=== PATIENT | female | born 1950 | race Caucasian/White ===

== ENCOUNTER 2016-06-18 17:01 | Inpatient (IN) | payer OTHER, BC ==
[~2016-06-18] VITALS: Ht 152.4 cm; Wt 144.9 kg
[~2016-06-18 17:01] MED LIST: B-CO1TAB29 PO; CETI10TA84 PO; DILT-115 PO; GLUCTAB7 PO; GLYB5TAB8 PO; LOSA1TAB38 PO; METF500T5 PO; OMEG12006 PO; OXYC-106 PO; POTA-335 PO; SPIR25TA PO; SYN112 PO; juice plus PO
[2016-06-18] MEDS ORDERED: SODIUM CHLORIDE 0.9% 1000ML 1,000 ML IV ONE (17:41)
[2016-06-18] MEDS ORDERED: PIPERACILLIN/TAZOBACTAM 4.5 GM/100ML D5W IV STA (17:41)
[2016-06-18] MEDS ORDERED: SODIUM CHLORIDE 0.9% 1000ML 1,000 ML IV STA (17:41)
[2016-06-18] MEDS ORDERED: ONDANSETRON INJ 2 MG/ML 2 ML VIAL IV STA (17:41)
[2016-06-18] MEDS ORDERED: MoRPHine SULFATE 4 MG/ML 1 ML CARP\\VIAL IV STA (17:41)
[2016-06-18] MEDS ORDERED: OPTIRAY 320 IV PRN (18:00)
--- NOTE | 2016-06-18 18:07 | EMERGENCY ROOM VISIT NOTE ---
History Report prepared by Wil: Ritika Najera Under the Supervision of: Dr. Ivan Huerta M.D. First contact with patient: 17:29 Chief Complaint: VOMITING Stated Complaint: VOMITING x7 DAY, PAIN IN STOMACH, POSSIBLE HERNIA Nursing Triage Summary: Pt daughter states patient has had 7 days of vomiting, denies diarrhea, states today when she vomited she heard a pop and there appears to be an open area that is draining in pt abdomen around umbilicus. Hx diabetes. Pain increases with movement 10/10 History of Present Illness The patient is a 65 year old female who presents to the Emergency Room with complaints of persistent abdominal drainage starting about 9 hours ago. The patient has been having a cough and vomiting for the past few days. She has been having intermittent acid reflux. Her last normal bowel movement was yesterday. She denies headache, shortness of breath, urinary symptoms, diarrhea , or any other complaints. She also reports abdominal pain. This morning, she heard a pop from her abdomen after she had a vomiting episode and a coughing spell. A few minutes later, she started having draining from the umbilicus. As per family member, the drainage smells similar to stool. She has no prior history of hernia near the drainage site. She denies any history of abdominal surgeries or bowel problems. She has a family history of colon cancer. Source of History: patient, family Onset: about 9 hours ago Position: abdomen Quality: other (drainage) Timing: other (persistent) Associated Symptoms: + abdominal pain, + cough, + vomiting, No SOB, No diarrhea, No headache, No urinary symptoms Review of Systems See HPI for pertinent positives & negatives. A total of 10 systems reviewed and were otherwise negative. Past Medical & Surgical Medical Problems: (1) Back pain (2) Benign hypertension (3) DDD (degenerative disc disease) (4) Diabetes mellitus (5) hernia (6) Hypothyroidism (7) Neurogenic claudication due to lumbar spinal stenosis (8) Perforated viscus Old medical records were reviewed. Nurse's notes were reviewed and I agree with. Diabetes and high blood pressure Denies cardiac disease No abdominal surgeries Family History Diabetes mellitus FHx: cancer FHx: gallbladder disease Social History Smoking Status: Never Smoker Alcohol Use: none Marital Status: Housing Status: lives with significant other Occupation Status: retired Current/Historical Medications Scheduled B-Complex Vitamins (Vitamin B Complex), 1 TAB PO DAILY Diltiazem Hcl Extended Release (Diltiazem Hcl), 240 MG PO QAM Rfdlbqyjtfl-Lzslyqffyla-Tpv C- (Glucosamine Chondroitin), 1 TAB PO BID Glyburide (Diabeta), 5 MG PO BID Levothyroxine Sodium (Synthroid), 112 MCG PO DAILY Losartan Potassium (Cozaar), 100 MG PO QPM Metformin Hcl Er (Glucophage Er), 1,000 MG PO QAM Metformin Hcl Er (Glucophage Er), 500 MG PO QPM Cecil-3 Fatty Acids (Cecil 3), 1 CAP PO DAILY [Juice Plus Fruit], 2 CAP PO QPM [Juice Plus Vegi], 2 CAP PO QAM Scheduled PRN Cetirizine (Zyrtec), 10 MG PO DAILY PRN for Allergy Symptoms Allergies Coded Allergies: No Known Allergies (Unverified , 06/18/16) Physical Exam Vital Signs Date Time Temp Pulse Resp B/P Pulse Ox O2 Delivery O2 Flow Rate FiO2 06/18/16 22:30 90 20 174/94 97 Mask 10 06/18/16 22:20 112 20 173/113 95 Mask 10 06/18/16 22:19 36.2 130 18 190/108 91 Mask 10 06/18/16 19:29 37.5 78 20 112/68 94 06/18/16 19:28 78 20 112/68 94 Room Air 06/18/16 17:21 37.5 80 20 117/63 94 Room Air Physical Exam General: Non-ill appearing, older female, in no acute distress. HEENT: Normal cephalic atraumatic. Pupils are equal round and reactive to light. Extraocular movements are intact. Oropharynx is pink with moist mucous membranes. No swelling of the mouth lips or tongue. Neck: Supple with a midline trachea. No meningeal signs or stiffness, no JVD or bruits. No Stridor. Chest: Clear to auscultation bilaterally. No wheezes or rhonchi. No increased work of breathing. Heart: regular rate and rhythm. Abdomen: Moderately tender centrally no redness. She significant drainage that looks like stool in her umbilicus. She has an umbilical hernia below this that is tender Extremities: No cyanosis clubbing or edema. No calf tenderness or assymetry Spine/Back. Non tender to palpation. No CVA tenderness Skin: Good turgor without rashes. Neurologic exam: Cranial nerves two through 12 are intact. Motor and sensation are intact and symmetrical throughout. Medical Decision & Procedures ER Provider Diagnostic Interpretation: X ray results as stated below per my interpretation and radiologist interpretation. CT results as stated below per my review and radiologist interpretation: ABDOMEN AND PELVIS CT WITH IV CONTRAST CT DOSE: 1797.10 mGy.cm HISTORY: Pain eval for obstruction TECHNIQUE: Multiaxial CT images of the abdomen and pelvis were performed following the use of intravenous contrast. COMPARISON STUDY: None. FINDINGS: Lung bases are clear. Fatty infiltration of liver. Contracted gallbladder contains several gallstones. 3 cm right renal cyst. No evidence renal hydronephrosis. Graft distended fluid-filled small bowel distention relates to a periumbilical hernia containing a short segment loop of nondistended small bowel. There are also several air pockets within the hernia itself. This may indicate a bowel incarceration. A clavicle pneumatosis of the small bowel is present. There is no evidence for free air: Pattern is decompressed. IMPRESSION: 1. Findings consistent with small bowel obstruction 2. The obstruction relates to a periumbilical hernia containing a short segment loop of a decompressed/incarcerated small bowel 3. Several small air bubbles within the hernia itself with possible minimal pneumatosis 4. Gallstones within a contracted gallbladder. 5. Fatty infiltration of liver. Electronically signed by: Amarjit Cardoza M.D. 06/18/2016 6:45 PM CHEST ONE VIEW PORTABLE CLINICAL HISTORY: CHEST PAIN dyspnea COMPARISON STUDY: No previous studies for comparison. FINDINGS: Mild congestive failure. Mild cardiac enlargement. Suboptimal history volumes. IMPRESSION: Mild congestive heart failure Electronically signed by: Amarjit Cardoza M.D. 06/18/2016 6:12 PM Laboratory Results 06/18/16 17:57 Red Blood Count 4.63, Mean Corpuscular Volume 86.0, Mean Corpuscular Hemoglobin 30.5, Mean Corpuscular Hemoglobin Concent 35.4, Mean Platelet Volume 10.6, Neutrophils (%) (Auto) 85.0, Lymphocytes (%) (Auto) 8.9, Monocytes (%) (Auto) 5.4, Eosinophils (%) (Auto) 0.0, Basophils (%) (Auto) 0.1, Neutrophils # (Auto) 25.46, Lymphocytes # (Auto) 2.67, Monocytes # (Auto) 1.62, Eosinophils # (Auto) 0.01, Basophils # (Auto) 0.03 06/18/16 17:57 Test 06/18/16 17:57 06/18/16 18:10 06/18/16 19:40 White Blood Count 29.96 K/uL (4.8-10.8) Red Blood Count 4.63 M/uL (4.2-5.4) Hemoglobin 14.1 g/dL (12.0-16.0) Hematocrit 39.8 % (37-47) Mean Corpuscular Volume 86.0 fL (80-100) Mean Corpuscular Hemoglobin 30.5 pg (25-34) Mean Corpuscular Hemoglobin Concent 35.4 g/dl (32-36) Platelet Count 289 K/uL (130-400) Mean Platelet Volume 10.6 fL (7.4-10.4) Neutrophils (%) (Auto) 85.0 % Lymphocytes (%) (Auto) 8.9 % Monocytes (%) (Auto) 5.4 % Eosinophils (%) (Auto) 0.0 % Basophils (%) (Auto) 0.1 % Neutrophils # (Auto) 25.46 K/uL (1.4-6.5) Lymphocytes # (Auto) 2.67 K/uL (1.2-3.4) Monocytes # (Auto) 1.62 K/uL (0.11-0.59) Eosinophils # (Auto) 0.01 K/uL (0-0.5) Basophils # (Auto) 0.03 K/uL (0-0.2) RDW Standard Deviation 40.1 fL (36.4-46.3) RDW Coefficient of Variation 12.8 % (11.5-14.5) Immature Granulocyte % (Auto) 0.6 % Immature Granulocyte # (Auto) 0.17 K/uL (0.00-0.02) Estimated GFR () 61.0 Estimated GFR (Non- 52.6 BUN/Creatinine Ratio 25.1 (10-20) Calcium Level 8.2 mg/dl (8.5-10.1) Total Bilirubin 1.0 mg/dl (0.2-1) Direct Bilirubin 0.3 mg/dl (0-0.2) Aspartate Amino Transf (AST/SGOT) 12 U/L (15-37) Alanine Aminotransferase (ALT/SGPT) 27 U/L (12-78) Alkaline Phosphatase 87 U/L (45-117) Total Protein 7.9 gm/dl (6.4-8.2) Albumin 3.2 gm/dl (3.4-5.0) Lipase 265 U/L (73-393) Bedside Hemoglobin 14.3 g/dl (12.0-16.0) Bedside Hematocrit 42 % (37-47) Bedside Sodium 132 mEq/L (135-144) Bedside Potassium 3.3 mEq/L (3.3-5.0) Bedside Chloride 89 mEq/L (101-112) Bedside Total CO2 27 mEq/l (24-31) Anion Gap 20.0 mmol/L (16-25) Bedside Blood Urea Nitrogen 29 mg/dl (7-18) Bedside Creatinine 1.0 mg/dl (0.6-1.3) Bedside Glucose (other) 274 mg/dl (70-99) Bedside Ionized Calcium (Tomasz) 0.96 mmol/l (1.12-1.32) Lactic Acid Level 1.6 mmol/L (0.4-2.0) Troponin I < 0.015 ng/ml (0-0.045) Laboratory studies as stated above per my review. Medications Administered Medications (Trade) Dose Ordered Sig/Devang Route Start Time Stop Time Status Last Admin Dose Admin Sodium Chloride 1,000 ml @ 999 mls/hr Q1H1M STAT IV 06/18/16 17:41 06/18/16 18:41 DC 06/18/16 18:19 999 MLS/HR Sodium Chloride (Nss 1000ml) 1,000 ml @ 200 mls/hr Q5H ONCE IV 06/18/16 17:41 06/18/16 22:40 DC 06/18/16 18:58 200 MLS/HR Ondansetron HCl (Zofran Inj) 4 mg NOW STAT IV 06/18/16 17:41 06/18/16 17:46 DC 06/18/16 18:19 4 MG Piperacillin Sod/ Tazobactam Sod (Zosyn Iv) 4.5 gm NOW STAT IV 06/18/16 17:41 06/18/16 17:46 DC 06/18/16 18:58 4.5 GM Morphine Sulfate (MoRPHine SULFATE INJ) 2 mg STK-MED ONCE .ROUTE 06/18/16 18:15 1/4/17 18:16 DC 06/18/16 18:19 2 MG Morphine Sulfate (MoRPHine SULFATE INJ) 2 mg STK-MED ONCE .ROUTE 06/18/16 18:55 06/18/16 18:57 DC 06/18/16 19:24 2 MG Morphine Sulfate (MoRPHine SULFATE INJ) 4 mg Q4H PRN IV 06/18/16 19:30 07/02/16 19:29 06/19/16 01:01 4 MG Bupivacaine HCl (Marcaine 0.5% MPF Inj) 30 ml ONE ONCE INJ 06/18/16 21:40 06/18/16 21:41 DC 06/18/16 21:40 30 ML ECG Indication: abdominal pain Rate (beats per minute): 108 Rhythm: sinus tachycardia Findings: Q waves (Inferior), no acute ischemic change, other (Septal infarct) Comparison ECG Date: January 30, 2015 Change: no significant change Change: Repeat EKG showed sinus tachycardia, 104 beats per minute, no change when compared to the first EKG. Repeat EKG showed sinus tachycardia, 103 beats per minute, septal infarct, inferior Q waves, no change when compared to the second EKG. ED Course 1728: Past medical records reviewed. The patient was evaluated in room B02, and a complete history and physical examination were performed. 1741: Zosyn IV 4.5 gm IV, Morphine Sulfate 2 mg IV, Zofran Inj 4 mg IV, Sodium Chloride 1000 ml @ 200 mls/hr IV, Sodium Chloride 1000 ml @ 999 mls/hr IV 1754: I discussed the patient's case with Dr. Veronica, general surgeon with [facility]. 1815: Morphine Sulfate [address] Veronica is at bedside. 1827: The patient is in CT scan. 1853: Upon reevaluation, the patient is resting comfortably. I discussed the results and treatment plan with the patient. She verbalized agreement of the treatment plan. [facility] The patient will be evaluated for further management. 1900: The patient is awaiting to go to the operating room. Medical Decision Differential diagnosis includes but is not limited to dehydration, hernia, bowel obstruction, fistula, sepsis. This patient comes in as described above. she's had vomiting for several days and her episode this morning where she felt a pop in her abdomen and since and has had drainage from her umbilicus and increasing abdominal pain. She does have a low-grade temperature however is but normotensive. Clinically, I do think she is dehydrated. My biggest concern however is on exam she is very tender along her umbilicus has a hernia and has stool draining out of her umbilicus. I'm concerned that she has incarcerated hernia that is draining stool. We moved quickly to treat and hydrate her. I did order Zosyn 4.5 g IV and order multiple blood testing including a CAT scan with IV contrast. I did also promptly consulted Dr. Veronica, the surgeon on-call, and she promptly arrived while we were still doing the workup in the ER. The workup does confirm the diagnosis of bowel obstruction secondary to an umbilical umbilical hernia. She has received IV hydration, IV antibiotics in the ER as well as IV morphine and IV Zofran for pain and nausea management. Dr. Veronica is going to take her emergently to the operating room. Her white count is significant elevated 28,000. Dr. Hinds also did see the patient as the medical hospitalist team will admit her for postoperative management. She was taken emergently to the operating room. Consults Time Called: 1750 Consulting Physician: Dr. Veronica, general surgeon with [facility] Returned Call: 175 I discussed the patient's case with Dr. Veronica, general surgeon with [facility]. Additional Consults: Time Called: 185 Consulted Physician: [facility] Returned Call: [phone] Additional Comments: [facility] Impression Primary Impression: Incarcerated hernia Additional Impressions: Bowel obstruction, Sepsis Critical Care Because this patient's emergent surgical condition and need to move quickly to expedite care as well as multiple consultations and IV medications and frequent reassessment and evaluation, I have personally spent greater than 30 minutes of critical care time in the direct management of this patient. This includes bedside care, interpretation of diagnostic studies, and testing, discussion with consultants, patient, and family members, and other required patient management activities. This 30 minutes is in excess of all separately billable procedures. Scribe Attestation The scribe's documentation has been prepared under my direction and personally reviewed by me in its entirety. I confirm that the note above accurately reflects all work, treatment, procedures, and medical decision making performed by me. Departure Information Dispostion Being Evaluated By Surgeon Referrals Delfin Cole M.D. (PCP) Patient Instructions A Signature Page, My [facility]
--- NOTE | 2016-06-18 18:14 | DIAGNOSTIC IMAGING REPORT ---
CHEST ONE VIEW PORTABLE CLINICAL HISTORY: CHEST PAIN dyspnea COMPARISON STUDY: No previous studies for comparison. FINDINGS: Mild congestive failure. Mild cardiac enlargement. Suboptimal history volumes. IMPRESSION: Mild congestive heart failure Electronically signed by: Amarjit Cardoza M.D. 06/18/2016 6:12 PM
[2016-06-18 18:15] LABS: HEMATOCRIT 39.8 % (37-47); MEAN CORPUSCULAR HEMOGLOBIN 30.5 pg (25-34); MEAN CORPUSCULAR HGB CONC 35.4 g/dl (32-36); MEAN PLATELET VOLUME 10.6 fL (7.4-10.4); PLATELET COUNT 289 K/uL (130-400); RED BLOOD COUNT 4.63 M/uL (4.2-5.4); WHITE BLOOD COUNT 29.96 K/uL (4.8-10.8)
[2016-06-18] MEDS ORDERED: MoRPHine SULFATE 2 MG/ML CARP ONE (18:15)
[2016-06-18 18:34] LABS: BLOOD UREA NITROGEN 28 mg/dl (7-18); BUN/CREATININE RATIO 25.1 (10-20); CALCIUM 8.2 mg/dl (8.5-10.1); CARBON DIOXIDE 29 mmol/L (21-32); CHLORIDE 92 mmol/L (98-107); POTASSIUM 3.3 mmol/L (3.5-5.1); SODIUM 132 mmol/L (136-145)
[2016-06-18 18:44] LABS: BASO % 0.1 %; BASO ABS # 0.03 K/uL (0-0.2); COMPLETE YES; IG% 0.6 %; LYMPH % 8.9 %; LYMPH ABS # 2.67 K/uL (1.2-3.4); MONO % 5.4 %
[2016-06-18 18:46] LABS: ALKALINE PHOSPHATASE 87 U/L (45-117); ALT/SGPT 27 U/L (12-78); AST/SGOT 12 U/L (15-37)
--- NOTE | 2016-06-18 18:47 | DIAGNOSTIC IMAGING REPORT ---
ABDOMEN AND PELVIS CT WITH IV CONTRAST CT DOSE: 1797.10 mGy.cm HISTORY: Pain eval for obstruction TECHNIQUE: Multiaxial CT images of the abdomen and pelvis were performed following the use of intravenous contrast. COMPARISON STUDY: None. FINDINGS: Lung bases are clear. Fatty infiltration of liver. Contracted gallbladder contains several gallstones. 3 cm right renal cyst. No evidence renal hydronephrosis. Graft distended fluid-filled small bowel distention relates to a periumbilical hernia containing a short segment loop of nondistended small bowel. There are also several air pockets within the hernia itself. This may indicate a bowel incarceration. A clavicle pneumatosis of the small bowel is present. There is no evidence for free air: Pattern is decompressed. IMPRESSION: 1. Findings consistent with small bowel obstruction 2. The obstruction relates to a periumbilical hernia containing a short segment loop of a decompressed/incarcerated small bowel 3. Several small air bubbles within the hernia itself with possible minimal pneumatosis 4. Gallstones within a contracted gallbladder. 5. Fatty infiltration of liver. Electronically signed by: Amarjit Cardoza M.D. 06/18/2016 6:45 PM
[2016-06-18 18:53] LABS: GLUCOSE 272 mg/dl (70-99)
[2016-06-18] MEDS: MoRPHine SULFATE 2 MG/ML CARP ONE ×2 (18:55→19:24)
[2016-06-18] MEDS ORDERED: FENTANYL CITRATE INJ 50 MCG/1 ML 2 ML VIAL ONE (19:12)
[2016-06-18] MEDS ORDERED: SUCCINYLCHOLINE CHLORIDE 20 MG/ML 10 ML VIAL IV ONE (19:13)
[2016-06-18] MEDS ORDERED: DILT240C75 PO (19:13)
[2016-06-18] MEDS ORDERED: PROPOFOL IV EMULSION 10 MG/ML 20 ML VIAL IV ONE (19:13)
[2016-06-18] MEDS ORDERED: ROCURONIUM BROMIDE 10 MG/ML 5 ML VIAL ONE (19:13)
[2016-06-18] MEDS ORDERED: GLY/5 PO (19:13)
[2016-06-18] MEDS ORDERED: LOSA100T65 PO (19:13)
[2016-06-18] MEDS ORDERED: LEVO112T2 PO (19:13)
[2016-06-18] MEDS ORDERED: METF500T5 PO ×2 (19:13)
[2016-06-18] MEDS ORDERED: LIDOCAINE HCL 2% 2 ML VIAL (20MG/ML) ONE (19:13)
[2016-06-18] MEDS ORDERED: B-COTAB18 PO (19:18)
[2016-06-18] MEDS ORDERED: OMEG12006 PO (19:18)
[2016-06-18] MEDS ORDERED: GLUCTAB7 PO (19:18)
[2016-06-18] MEDS ORDERED: Juice Plus Fruit PO (19:18)
[2016-06-18] MEDS ORDERED: [UNRECOGNIZED DRUG - OTHER] PO (19:18)
[2016-06-18] MEDS ORDERED: CETI10TA84 PO (19:18)
[2016-06-18] MEDS ORDERED: SODIUM CHLORIDE 0.9% 1000ML 1,000 ML IV SCH (19:20)
[2016-06-18] MEDS ORDERED: ONDANSETRON INJ 2 MG/ML 2 ML VIAL IV PRN ×2 (19:30)
[2016-06-18] MEDS ORDERED: HydrALAZINE HCL 20 MG/ML VIAL IV PRN (19:30)
[2016-06-18] MEDS ORDERED: MoRPHine SULFATE 10 MG/ML CARP/VIAL IV PRN (19:30)
[2016-06-18] MEDS ORDERED: EpHEDrine SULFATE INJ 50 MG/ML AMP IV PRN (19:30)
[2016-06-18] MEDS ORDERED: FENTANYL CITRATE INJ 50 MCG/1 ML 2 ML VIAL IV PRN (19:30)
[2016-06-18] MEDS ORDERED: ATROPINE SULFATE 0.1 MG/ML 5ML SYR IV PRN (19:30)
--- NOTE | 2016-06-18 19:45 | Pre-Operative Consultation ---
History General Date of Service: Jun 18, 2016. Stated Complaint: drainage from umbilicus HPI HPI: The patient is a 65 year old female being seen at request of Dr. Huerta for umbilical drainage that started earlier today. She has had persistent vomiting for the past 7 days. Has diabetes. No prior history of abdominal surgery. This morning, felt a pop in abdomen while vomiting. Developed severe abdominal pain and drainage of foul smelling stool from her umbilicus. No fevers/ chills. No history of hernias in past. Historian: patient Procedure Urgency: Emergency Risk Assessment Daily beta antonia use?: No Medical & Surgical History Past Medical History: diabetes, hypertension, other (obesity) Past Surgical History: other (back surgery) Family History Family History: diabetes Social History Hx Tobacco Use In Past Year?: No Smoking Status: Never Smoker Alcohol: none Marital status: Occupation status: retired Allergies Allergies: Coded Allergies: No Known Allergies (Unverified , 06/18/16) Medications Current Inpatient Medications Current Inpatient Medications Medications (Trade) Dose Ordered Sig/Devagn Route Start Time Stop Time Status Last Admin Dose Admin Sodium Chloride (Nss 1000ml) 1,000 ml @ 200 mls/hr Q5H ONCE IV 06/18/16 17:41 06/18/16 22:40 06/18/16 18:58 200 MLS/HR Ioversol 100 ml 100 ml UD PRN IV 06/18/16 18:00 06/22/16 17:59 Sodium Chloride (Nss 1000ml) 1,000 ml @ 125 mls/hr Q8H IV 06/18/16 19:20 07/18/16 19:19 UNV Ondansetron HCl (Zofran Inj) 4 mg Q6H PRN IV 06/18/16 19:30 07/18/16 19:29 UNV Insulin Aspart (novoLOG ASPART) SLIDING SCALE PARAMETER ACHS SC 06/18/16 21:00 07/18/16 20:59 UNV Morphine Sulfate (MoRPHine SULFATE INJ) 4 mg Q4H PRN IV 06/18/16 19:30 07/02/16 19:29 UNV Morphine Sulfate 2 mg 2 mg Q4H PRN IV 06/18/16 19:30 07/02/16 19:29 UNV Acetaminophen 650 mg/Empty Bag 65 ml @ 260 mls/hr Q6H PRN IV 06/18/16 19:30 07/18/16 19:29 UNV Levothyroxine Sodium/Syringe (Synthroid Inj/ Syringe) 3 ml @ 2 mls/min DAILY@09 IV 06/19/16 09:00 07/19/16 08:59 UNV Hydralazine HCl (HydrALAZINE INJ) 10 mg Q4H PRN IV 06/18/16 19:30 07/18/16 19:29 UNV Fentanyl Citrate (Fentanyl Inj) 50 mcg Q5M PRN IV 06/18/16 19:30 06/19/16 19:29 UNV Morphine Sulfate (MoRPHine SULFATE INJ) 2 mg Q5M PRN IV 06/18/16 19:30 06/19/16 19:29 UNV Ondansetron HCl (Zofran Inj) 4 mg ONE PRN IV 06/18/16 19:30 UNV Ephedrine Sulfate (EpHEDrine SULFATE INJ) 5 mg Q5M PRN IV 06/18/16 19:30 06/19/16 19:29 UNV Atropine Sulfate (Atropine Sulfate 0.1MG/Ml Inj) 0.5 mg Q1M PRN IV 06/18/16 19:30 06/19/16 19:29 UNV Review of Systems Review of Systems Gastrointestinal: see HPI All Other Symptoms All Other Systems: Reviewed and Negative Physical Exam Physical Exam General Appearance: + WD/WN, No distress Ears, Nose, Throat: + normal ENT inspection Neck: No limited range of motion, No tracheal deviation Respiratory: No abnormal breath sounds, No accessory muscle use, No decreased breath sounds, No respiratory distress Cardiovascular: No JVD, No abnormal rate, No diastolic murmur, No edema, No tachycardia Abdomen: + distension, + mass (10 cm centralized under umbilicus), + other ( drainage of stool from umbilicus), + tenderness Extremities: No abnormal range of motion, No edema Neurologic/Psychiatric: No abnormal test equipment mechanic II-XII, No motor deficit/weakness Skin Characteristics: No abnormal color, No abnormal temperature Diagnostics Labs Labs Results Past 24 Hours Test 06/18/16 17:57 06/18/16 19:05 06/18/16 19:10 Range/Units White Blood Count 29.96 4.8-10.8 K/uL Red Blood Count 4.63 4.2-5.4 M/uL Hemoglobin 14.1 12.0-16.0 g/dL Hematocrit 39.8 37-47 % Mean Corpuscular Volume 86.0 80-100 fL Mean Corpuscular Hemoglobin 30.5 25-34 pg Mean Corpuscular Hemoglobin Concent 35.4 32-36 g/dl Platelet Count 289 130-400 K/uL Mean Platelet Volume 10.6 7.4-10.4 fL Neutrophils (%) (Auto) 85.0 % Lymphocytes (%) (Auto) 8.9 % Monocytes (%) (Auto) 5.4 % Eosinophils (%) (Auto) 0.0 % Basophils (%) (Auto) 0.1 % Neutrophils # (Auto) 25.46 1.4-6.5 K/uL Lymphocytes # (Auto) 2.67 1.2-3.4 K/uL Monocytes # (Auto) 1.62 0.11-0.59 K/uL Eosinophils # (Auto) 0.01 0-0.5 K/uL Basophils # (Auto) 0.03 0-0.2 K/uL RDW Standard Deviation 40.1 36.4-46.3 fL RDW Coefficient of Variation 12.8 11.5-14.5 % Immature Granulocyte % (Auto) 0.6 % Immature Granulocyte # (Auto) 0.17 0.00-0.02 K/uL Sodium Level 132 136-145 mmol/L Potassium Level 3.3 3.5-5.1 mmol/L Chloride Level 92 98-107 mmol/L Carbon Dioxide Level 29 21-32 mmol/L Anion Gap 11.0 3-11 mmol/L Blood Urea Nitrogen 28 7-18 mg/dl Creatinine 1.10 0.60-1.20 mg/dl Estimated GFR () 61.0 Estimated GFR (Non- 52.6 BUN/Creatinine Ratio 25.1 10-20 Random Glucose 272 70-99 mg/dl Calcium Level 8.2 8.5-10.1 mg/dl Total Bilirubin 1.0 0.2-1 mg/dl Direct Bilirubin 0.3 0-0.2 mg/dl Aspartate Amino Transf (AST/SGOT) 12 15-37 U/L Alanine Aminotransferase (ALT/SGPT) 27 12-78 U/L Alkaline Phosphatase 87 45-117 U/L Troponin I < 0.015 0-0.045 ng/ml Total Protein 7.9 6.4-8.2 gm/dl Albumin 3.2 3.4-5.0 gm/dl Lipase 265 73-393 U/L Microbiology Results 06/18/16 Blood Culture, Received Pending 06/18/16 Blood Culture, Received Pending Lab Interpretation Lab Interpretation: labs were reviewed Diagnostic Radiology Diagnostic Radiology CT scan personally reviewed and shows bowel in hernia sac, likely source of perforation. Evidence of small bowel obstruction. Impression Assessment and Plan Assessment and Plan 65 yr old woman with perforated bowel in hernia sac. Discussed exploratory laparotomy, bowel resection, possible hernia repair. Discussed high likelihood of recurrent hernia given her obesity. Other risks of bleeding, infection, prolonged postop course, enterotomy discussed. Consent signed.
--- NOTE | 2016-06-18 19:53 | History and Physical ---
History & Physical Date & Time of Service: Jun 18, 2016 at 19:42 Chief Complaint: 65 year old female who presents vomiting and little oral intake and a "pop' sensation then began having abdominal drainage from her umbilicus that smelled of stool starting about 9 hours [employer]. She has a history intermittent acid reflux, has hag normal bowel movements. She has no prior history of hernia. She denies any history of abdominal surgeries or bowel problems. She has a family history of colon cancer. She is being urgently taken to the OR, no current chest pain or shortness of breath, some inferior q waves are noted on ECG, but similar to old ECG Primary Care Physician: Delfin Cole M.D. History of Present Illness Source: patient, family Past Medical/Surgical History Medical Problems: (1) Back pain Status: Resolved (2) Benign hypertension Status: Chronic (3) DDD (degenerative disc disease) Status: Chronic (4) Diabetes mellitus Status: Chronic (5) hernia Status: Resolved (6) Neurogenic claudication due to lumbar spinal stenosis Status: Resolved Family History Diabetes mellitus FHx: cancer FHx: gallbladder disease Social History Smoking Status: Never Smoker Marital Status: Occupational Status: retired Multi-Drug Resistant Organisms History of MDRO: No Allergies Coded Allergies: No Known Allergies (Unverified , 06/18/16) Home Medications Scheduled B-Complex Vitamins (Vitamin B Complex), 1 TAB PO DAILY Diltiazem Hcl Extended Release (Diltiazem Hcl), 240 MG PO QAM Nvytlciabql-Vheotbqyvtm-Iep C- (Glucosamine Chondroitin), 1 TAB PO BID Glyburide (Diabeta), 5 MG PO BID Levothyroxine Sodium (Synthroid), 112 MCG PO DAILY Losartan Potassium (Cozaar), 100 MG PO QPM Metformin Hcl Er (Glucophage Er), 1,000 MG PO QAM Metformin Hcl Er (Glucophage Er), 500 MG PO QPM [place]-3 Fatty Acids ([place] 3), 1 CAP PO DAILY [Juice Plus Fruit], 2 CAP PO QPM [Juice Plus Vegi], 2 CAP PO QAM Scheduled PRN Cetirizine (Zyrtec), 10 MG PO DAILY PRN for Allergy Symptoms Review of Systems Constitutional: No chills, No fever Respiratory: No cough, No sputum, No wheezing Cardiovascular: No chest pain, No orthopnea Abdomen: + nausea, + pain, + vomiting, No constipation, No diarrhea Musculoskeletal: No joint pain, No muscle pain Genitourinary - Female: No dysuria, No urinary frequency Psychiatric: No anhedonism, No depression symptoms Endocrine: No excessive thirst, No fatigue Hematologic / Lymphatic: No abnormal bleeding/bruising, No clotting problems Integumentary: No itch, No rash Physical Exam Vital Signs Date Time Temp Pulse Resp B/P Pulse Ox O2 Delivery O2 Flow Rate FiO2 06/18/16 19:29 37.5 78 20 112/68 94 06/18/16 19:28 78 20 112/68 94 Room Air 06/18/16 17:21 37.5 80 20 117/63 94 Room Air General Appearance: + mild distress, + obese Head: normocephalic, atraumatic Eyes: PERRL, EOMI Neck: supple, no JVD Respiratory/Chest: chest non-tender, lungs clear, normal breath sounds Cardiovascular: regular rate, rhythm, no murmur Abdomen/GI: + abnormal bowel sounds, + guarding Extremities/Musculoskelatal: normal inspection, no calf tenderness Neurologic/Psych: alert, oriented x 3 Skin: normal color, warm/dry, no rash Diagnostics Laboratory Results Results Past 24 Hours Test 06/18/16 17:57 06/18/16 19:05 06/18/16 19:10 Range/Units White Blood Count 29.96 4.8-10.8 K/uL Red Blood Count 4.63 4.2-5.4 M/uL Hemoglobin 14.1 12.0-16.0 g/dL Hematocrit 39.8 37-47 % Mean Corpuscular Volume 86.0 80-100 fL Mean Corpuscular Hemoglobin 30.5 25-34 pg Mean Corpuscular Hemoglobin Concent 35.4 32-36 g/dl Platelet Count 289 130-400 K/uL Mean Platelet Volume 10.6 7.4-10.4 fL Neutrophils (%) (Auto) 85.0 % Lymphocytes (%) (Auto) 8.9 % Monocytes (%) (Auto) 5.4 % Eosinophils (%) (Auto) 0.0 % Basophils (%) (Auto) 0.1 % Neutrophils # (Auto) 25.46 1.4-6.5 K/uL Lymphocytes # (Auto) 2.67 1.2-3.4 K/uL Monocytes # (Auto) 1.62 0.11-0.59 K/uL Eosinophils # (Auto) 0.01 0-0.5 K/uL Basophils # (Auto) 0.03 0-0.2 K/uL RDW Standard Deviation 40.1 36.4-46.3 fL RDW Coefficient of Variation 12.8 11.5-14.5 % Immature Granulocyte % (Auto) 0.6 % Immature Granulocyte # (Auto) 0.17 0.00-0.02 K/uL Sodium Level 132 136-145 mmol/L Potassium Level 3.3 3.5-5.1 mmol/L Chloride Level 92 98-107 mmol/L Carbon Dioxide Level 29 21-32 mmol/L Anion Gap 11.0 3-11 mmol/L Blood Urea Nitrogen 28 7-18 mg/dl Creatinine 1.10 0.60-1.20 mg/dl Estimated GFR () 61.0 Estimated GFR (Non- 52.6 BUN/Creatinine Ratio 25.1 10-20 Random Glucose 272 70-99 mg/dl Calcium Level 8.2 8.5-10.1 mg/dl Total Bilirubin 1.0 0.2-1 mg/dl Direct Bilirubin 0.3 0-0.2 mg/dl Aspartate Amino Transf (AST/SGOT) 12 15-37 U/L Alanine Aminotransferase (ALT/SGPT) 27 12-78 U/L Alkaline Phosphatase 87 45-117 U/L Troponin I < 0.015 0-0.045 ng/ml Total Protein 7.9 6.4-8.2 gm/dl Albumin 3.2 3.4-5.0 gm/dl Lipase 265 73-393 U/L Microbiology Results 06/18/16 Blood Culture, Received Pending 06/18/16 Blood Culture, Received Pending Diagnostic Radiology CT abdomen pelvis: 1. Findings consistent with small bowel obstruction 2. The obstruction relates to a periumbilical hernia containing a short segment loop of a decompressed/incarcerated small bowel 3. Several small air bubbles within the hernia itself with possible minimal pneumatosis 4. Gallstones within a contracted gallbladder. 5. Fatty infiltration of liver. CXR normal No change from prior EKG Impression Assessment and Plan (1) Perforated small intestine Status: Acute Assessment & Plan: Pt will be taken to the OR, is given Zosyn, cultured, ngt decision based on surgical team (2) Diabetes mellitus Status: Chronic Assessment & Plan: since the pt will be NPO will stop glucophage and glyburide , have ssi q 6 hours (3) Benign hypertension Status: Chronic Assessment & Plan: since is npo will hold diltiazem,losartan, use hydralazine and metoprolol for bp or if tachycardia (4) Hypothyroidism Status: Chronic Assessment & Plan: since cannot take po will have synthroid IV at 50% or so of dose (5) Hypokalemia Status: Acute Assessment & Plan: replete with IVF containing potassium, check magnesium in am will use scd for dvt prevention but may benefit from chemoprophylaxis post op once bleeding risk is past Level of Care Telemetry Resuscitation Status FULL RESUSCITATION VTE Prophylaxis VTE Risk Assessment Done? Y/N: Yes Risk Level: Moderate Given or contraindicated: SCD's
[2016-06-18] MEDS ORDERED: HYDROmorphone INJ 2 MG/ML SYR/VIAL ONE ×2 (19:54→20:34)
[2016-06-18] MEDS ORDERED: METOPROLOL TARTRATE 1 MG/ML VIAL IV PRN (20:00)
[2016-06-18 20:22] LABS: ISTAT HEMOGLOBIN 14.3 g/dl (12.0-16.0); ISTAT IONIZED CALCIUM 0.96 mmol/l (1.12-1.32)
[2016-06-18] MEDS ORDERED: DEXTROSE 50% 50 ML SYR IV PRN (20:30)
[2016-06-18] MEDS ORDERED: GLUCAGON FOR INJ 1 MG VIAL SQ PRN (20:30)
[2016-06-18] MEDS ORDERED: GLUCOSE 40% GEL 15 GM TUBE PO PRN (20:30)
[2016-06-18] MEDS ORDERED: GLUCOSE 10 TABS/TUBE PO PRN (20:30)
[2016-06-18] MEDS ORDERED: ONDANSETRON INJ 2 MG/ML 2 ML VIAL ONE (20:33)
[2016-06-18] MEDS ORDERED: NEOSTIGMINE METHYLSULFATE 5 MG/5 ML SYR ONE (20:33)
[2016-06-18] MEDS ORDERED: GLYCOPYRROLATE INJ 0.2 MG/ML VIAL ONE (20:33)
[2016-06-18] MEDS ORDERED: BUPIVACAINE 0.5 % 5 MG/1 ML MPF 30ML VIAL INJ ONE (21:40)
[2016-06-18] MEDS ORDERED: LIDOCAINE 2% 20 MG/ML SYRINGE***ORM CHARTING ONLY IV ONE (22:20)
--- NOTE | 2016-06-18 22:28 | [facility] Post Operative Brief Note ---
Immediate Operative Summary Operative Date Jun 18, 2016. Pre-Operative Diagnosis Perforated viscus, incarcerated hernia Post-Operative Diagnosis Perforated viscus, incarcerated hernia Procedure(s) Performed Exploratory Laparotomy, Small bowel resection, Operative hernia repair Surgeon Dr. Yanelis Veronica Wafer Machine Operator Surgeon(s) none Estimated Blood Loss 15ml Findings knuckle of small bowel caught in hernia sac with free 1.5 cm perforation into the base of the umbilicus. Specimens A. Necrotic Omentum and Small Bowel Drains 1 10 flat GERMAIN in subcutaneous space Anesthesia GET Complication(s) None Disposition Recovery Room / PACU
[2016-06-18] MEDS ORDERED: OXYCODONE/ACETAMINOPHEN 5-325 TAB PO PRN (22:30)
--- NOTE | 2016-06-18 22:58 | Anesthesiology Progress Note ---
Anesthesia Post Op Note Date & Time Jun 18, 2016 at 22:57 Vital Signs Pain Intensity: 0 Vital Signs Past 12 Hours Date Time Temp Pulse Resp B/P Pulse Ox O2 Delivery O2 Flow Rate FiO2 06/18/16 22:50 100 20 142/101 97 Mask 10 06/18/16 22:40 95 20 166/96 97 Mask 10 06/18/16 22:30 90 20 174/94 97 Mask 10 06/18/16 22:20 112 20 173/113 95 Mask 10 06/18/16 22:19 36.2 130 18 190/108 91 Mask 10 06/18/16 19:29 37.5 78 20 112/68 94 06/18/16 19:28 78 20 112/68 94 Room Air 06/18/16 17:21 37.5 80 20 117/63 94 Room Air Notes Mental Status: alert / awake / arousable, participated in evaluation Pt Amnestic to Procedure: Yes Nausea / Vomiting: adequately controlled Pain: adequately controlled Airway Patency, RR, SpO2: stable & adequate BP & HR: stable & adequate Hydration State: stable & adequate Anesthetic Complications: no major complications apparent
--- NOTE | 2016-06-18 23:10 | OPERATIVE REPORT ---
DATE OF OPERATION: 06/18/2016 PREOPERATIVE DIAGNOSIS: Perforated viscus and incarcerated hernia causing small bowel obstruction. POSTOPERATIVE DIAGNOSIS: Same. OPERATIVE PROCEDURES: Exploratory laparotomy, partial small bowel resection with primary anastomosis, primary repair of hernia and resection of umbilicus. SURGEON: Dr. Day Veronica. ANESTHESIA: General endotracheal anesthesia. ESTIMATED BLOOD LOSS: 15 mL. DRAINS: 10 flat GERMAIN in subcutaneous space. COMPLICATIONS: None. OPERATIVE FINDINGS: A knuckle of small bowel stuck with incarcerated omentum with free perforation into base of umbilicus defect and bowel measuring about 1.5 cm as well as the base of the umbilicus, necrotic umbilicus and hernia sac. INDICATIONS: Ms. Almendarez is a 65-year-old woman who presented with vomiting for 7 days. She felt a pop this morning and started to drain stool from her umbilicus. She was consented for exploratory laparotomy following a CT scan which showed a hernia with bowel within it. PROCEDURE IN DETAIL: The patient was on antibiotics preoperatively. She underwent placement of sequential compression devices. She had induction of general endotracheal anesthesia, her abdomen was sterilely prepped and draped. A midline incision was made and carried down to the hernia sac. The hernia sac was carefully entered. There was a copious amount of stool and pus as well as sections of the hernia sac that appeared necrotic. The omentum and the hernia sac was necrotic. This was resected between Vicryl ties. This exposed a knuckle of small intestine that had freely perforated with a 1.5 cm perforation, causing a similar size erosion at the base of the umbilicus which was completely necrotic. The bowel was then clamped off and the wound irrigated. The hernia sac was opened enough to allow for the bowel to be brought up into the wound. A healthy area of bowel was identified both proximal and distal. The small bowel was divided with firing of the LINDSEY 60 stapler. The mesentery was taken between Vicryl ties. Once the specimen was sent off the field, the wound was irrigated multiple times. At this point gown and gloves were changed and the abdomen was freely opened. The abdomen was then explored and the bowel wall noted to be dilated and did not note any other adhesions. The NG was checked and showed good position. A primary [id number] functional end-to-end anastomosis was then performed by creating a new enterotomy with the LINDSEY 60 stapler in both loops of small bowel. The enterotomy defect itself was closed with a firing of the TA 60 stapler. Vicryl sutures were used to take tension off of the anastomosis, the stay sutures as well as to reapproximate the peritoneal defect. The anastomosis was dunked back into the peritoneal cavity. This was covered with omentum. The abdomen was again irrigated. Due to the presence of gross stool and necrotic material, decision was made to not use mesh. The hernia defect itself measured about 4 cm in width, the necrotic hernia sac was resected. The necrotic umbilicus was resected. The hernia was then repaired primarily with 2 running #1 PDS sutures as well as interrupted 0 Vicryl sutures and the 10 flat GERMAIN was placed into the space where the hernia had been. This was secured to the skin with a nylon stitch. The wound was irrigated multiple times. The wound was then loosely closed with chantale. A sterile dressing was applied. She was awakened and taken to recovery in stable condition. I attest to the content of the Intraoperative Record and any orders documented therein. Any exceptio ns are noted below.
--- NOTE | 2016-06-18 23:20 | CONSULTATION REPORT ---
DATE OF CONSULTATION: 06/18/2016 ER CONSULTATION The patient is seen in the ER B2. TIME: 6:30 p.m. REASON FOR REFERRAL: Drainage from umbilicus. REFERRING PHYSICIAN: Dr. Ivan Huerta. The patient's history is obtained from the patient and the chart. HISTORY OF PRESENT ILLNESS: This is a 65-year-old morbidly obese diabetic woman who presents complaining of umbilical drainage that started after she felt a pop in her abdomen. She actually began noticing vomiting and cough about 7 days ago. This was persistent, it would happen whether she ate or did not eat, it was very intense. She has no known history of diabetic gastroparesis. This morning she was having additional vomiting and she felt a pop in her abdomen. Following this, she developed intense abdominal pain, worse with movement, 10/10, generalized. She also noted foul-smelling drainage of something that looked like stool from her umbilicus. She thus presented to the ER. She does not note any fevers. Her pain is somewhat better if she is lying still. The pain is centralized around the area of the umbilicus. Her bowel movements have been normal recently with no loose stool or constipation episodes. She has no known hernia in the past. She has not had any prior abdominal operations. She does note to a colonoscopy in the past which was okay. PAST MEDICAL HISTORY: Notable for obesity, for diabetes and high blood pressure. PAST SURGICAL HISTORY: Includes back surgery last year. FAMILY HISTORY: Diabetes and cancer and gallbladder disease. SOCIAL HISTORY: Denies tobacco, no alcohol. She is , accompanied by her family today. MEDICATIONS: At home are B complex, Zyrtec, diltiazem 240 mg p.o. q.a.m., glucosamine, glyburide 5 mg p.o. b.i.d., Synthroid 112 mcg p.o. q.a.m., Cozaar 100 mg p.o. q.p.m., Glucophage 500 mg p.o. t.i.d., omega-3 fatty acids, potassium and Aldactone. She takes Percocet 10/325 as needed. ALLERGIES: No allergies. REVIEW OF SYSTEMS: Otherwise negative except for in the HPI. PHYSICAL EXAMINATION: GENERAL: She is a healthy woman, in no acute distress. VITAL SIGNS: Temperature is 37.5, pulse 80, respirations 20, blood pressure 117/63. HEENT: Sclerae are anicteric. Conjunctivae not injected. NECK: Supple. Trachea midline. HEART: S1, S2 are present. Regular rate and rhythm. No murmurs appreciated. LUNGS: Clear to auscultation. No use of accessory muscles. ABDOMEN: Soft. She is tender with a phlegmon in the mid abdomen, measuring at least 10 cm. This appears centralized under her umbilicus. She is most tender over this mass. There is clear drainage of stool from her umbilicus. There is no hernia. She does have an obese abdomen. She has no peritoneal signs away from the area of the phlegmon. NEUROLOGIC: She is alert, oriented x3. Cranial nerves grossly intact. PSYCHIATRIC: Mood and affect appear normal. LABORATORY STUDIES: Reviewed. Her white blood cell count is 29.96, H\T\H 14.1 and 39.8, platelets 289. Chemistry panel is pending. A chest x-ray was done which shows no evidence of free air, does have low lung volumes and mild congestive heart failure. ASSESSMENT AND PLAN: Haydee Almendarez is a 65-year-old diabetic obese woman who appears to have had a small-bowel rupture through her umbilicus. The question is whether this is a spontaneous fistula or whether she is also draining inside her abdomen. I agree with the need for a CT scan to look for free fluid or free air. Should she have signs of intraabdominal leakage, then she would require surgery. This surgery is likely to be very complicated given her obesity as well as the suggestion of at least a 10-cm phlegmonous mass centralized around the umbilicus. We discussed that surgery could be high risk with multiple possibilities of enterotomies or need for bowel resections. In addition, if her CT scan shows no evidence of drainable fluid or free air, then potentially she could be treated as an enterocutaneous fistula. This would require likely IV antibiotics for whatever underlying process is going on, bowel rest and TPN. She understands this would likely be a very prolonged recovery to give the fistula time to heal, and should it not heal, then there is a potential of still needing surgery to take care of this, which would be best done in a tertiary care center. All of this was discussed with the patient. At this point, we await her CT scan results.
[2016-06-19] VITALS (7 sets, daily range): BP systolic 100–165; BP diastolic 67–83; PULSE 84–110; TEMP 36.5–37.1; O2SAT 94–97; Ht 152.4 cm; Wt 144.9 kg
[2016-06-19] MEDS: NSS + 20MEQ KCL 1000ML 1,000 ML IV SCH ×3 (01:00→19:18)
[2016-06-19] MEDS: MoRPHine SULFATE 4 MG/ML 1 ML CARP\\VIAL IV PRN ×5 (01:01→19:23)
[2016-06-19] MEDS: PATIENT'S HEIGHT AND/OR WEIGHT NEEDED SCH ×2 (01:15→01:45)
[2016-06-19] MEDS: INSULIN ASPART 100 UNITS/ML 3 ML PEN SC SCH ×5 (01:54→21:30)
[2016-06-19] MEDS ORDERED: PIPERACILL/TAZOBAC CONSULT ACTIVE PRN (03:00)
[2016-06-19] MEDS ORDERED: PNEUMOCOCCAL ADMINISTRATION CHARGE ONE (03:00)
[2016-06-19] MEDS ORDERED: INFLUENZA ADMINISTRATION CHARGE ONE (03:00)
[2016-06-19] MEDS ORDERED: INFLUENZA VIRUS QUAD VACCINE 0.5 ML SYR IM. ONE (03:00)
[2016-06-19] MEDS ORDERED: PNEUMOCOCCAL POLYSACCHARIDES 25 MCG/0.5 ML VIAL/SYR IM. ONE (03:00)
[2016-06-19] MEDS: PIPERACILL/TAZOBAC IV 4.5 GM in DEXTROSE 5% 100ML 100 ML IV SCH ×3 (03:07→19:22)
[2016-06-19] MEDS: ACETAMINOPHEN IV 650 MG in EMPTY BAG 0 ML IV PRN ×2 (05:00→11:13)
[2016-06-19 07:14] LABS: HEMATOCRIT 36.4 % (37-47); MEAN CELL VOLUME 87.7 fL (80-100); MEAN CORPUSCULAR HEMOGLOBIN 31.1 pg (25-34); MEAN CORPUSCULAR HGB CONC 35.4 g/dl (32-36); MEAN PLATELET VOLUME 10.7 fL (7.4-10.4); PLATELET COUNT 267 K/uL (130-400); RED BLOOD COUNT 4.15 M/uL (4.2-5.4)
[2016-06-19 07:23] LABS: INR 1.2 (0.9-1.1); PROTHROMBIN TIME (PATIENT) 13.4 SECONDS (9.0-12.0)
--- NOTE | 2016-06-19 07:45 | Family Medicine Progress Note ---
Progress Note Date of Service Jun 19, 2016. Subjective Pt evaluation today including: conversation w/ patient, physical exam, chart review, lab review The patient was seen and examined at bedside. Patient is Day#1 post op for a perforated viscus. Telemetry showed sinus rhythm in the 80s. Patient is resting comfortably in bed. Reports well controlled pain with the morphine. Pt is NPO with an NG tube draining fecoid looking fluid. Patient has an abdominal binder covering her wound. Pt is using a bedpan to void. Patient was informed of the medical decision making regarding her care, was satisfied and all her questions were answered. Constitutional: No fever Respiratory: No cough, No shortness of breath, No sputum, No wheezing Cardiovascular: No chest pain Abdomen: + pain, No diarrhea, No vomiting Musculoskeletal: + problem reported (back pain) Objective Physical Exam General Appearance: WD/WN, + obese Respiratory/Chest: chest non-tender, lungs clear, normal breath sounds, no respiratory distress, + pertinent finding (posterior ausculation was performed via patient rotating on the bed sicne sitting up produce pain.) Cardiovascular: regular rate, rhythm, no edema, no gallop, no JVD, no murmur Abdomen: non tender, soft, + pertinent finding (Patient has an abdominal binder , s/p bowel resection w anastamosis. Wound is healing appropriately. ) Neurologic/Psychiatric: alert, normal mood/affect, oriented x 3 Assessment and Plan 65F presenting with a one day history of fecal matter draining from the umbilicus. Diagnosed with perforated viscus. Taken to the OR emergently. Partial small bowel resection by Dr. Veronica, pt sent to telemetry. Patient is reporting moderate abdominal pain that is being controlled with Oxycodone 4mg IV PRN. Post Op Day #1 for Perforated Viscus - Pt is doing well clinically, continues to be NPO. - monitor and control pain with oxycodone 4mg IV Q4 PRN. - c/w Zosyn IV d 7 days. - c/w IVF KCl @125ml/hr - f/u BMP, CBC and Mg tomorrow. HTN - monitoring BP closely, holding home HTN meds at present. DM2 - ISS, c/w Lantus 15 units + 3 units Novolog Chronic Back Pain - c/w current pain management regimen. Hypothyroid - c/w IV synthroid 60mcg IV daily. DVT Proph: Lovenox 40mg SQ daily Dispo: Tele, NPO, Full Code. Resident Physician Supervision Note: I was present with the resident during the history and exam. I discussed the case with the resident and agree with the findings and plan as documented in the note. Documented By: Patric Watson Resident Involvement: Resident Care Provided Care Provided: Adult [facility]
[2016-06-19 07:52] LABS: BUN/CREATININE RATIO 37.4 (10-20); CALCIUM 7.3 mg/dl (8.5-10.1); CREATININE 0.76 mg/dl (0.60-1.20); POTASSIUM 3.7 mmol/L (3.5-5.1)
[2016-06-19] MEDS ORDERED: PHARMACY GLYCEMIC MGMT CONSULT PRN (10:03)
[2016-06-19] MEDS: LEVOTHYROXINE SODIUM IV SCH (10:45)
[2016-06-19] MEDS: ENOXAPARIN 40 MG/0.4 ML SYR SQ SCH (10:46)
[2016-06-19] MEDS ORDERED: INSULIN ASPART 100 UNITS/ML 3 ML PEN SC SCH (11:30)
[2016-06-19] MEDS: INSULIN GLARGINE SOLOSTAR 100 UNITS/ML 3 ML PEN SC SCH ×2 (12:46→21:33)
--- NOTE | 2016-06-19 14:26 | Surgery Progress Note ---
Surgery Progress Note Date of Service Jun 19, 2016. Subjective Complaining of pain which is controlled by medications. Has not been up and moving yet. No nausea. Objective Vital Signs: Date Time Temp Pulse Resp B/P Pulse Ox O2 Delivery O2 Flow Rate FiO2 06/19/16 12:00 Nasal Cannula 06/19/16 11:25 37.0 88 18 100/70 97 2.0 06/19/16 08:02 36.9 102 18 105/69 94 Room Air 06/19/16 08:00 Nasal Cannula 06/19/16 04:00 Nasal Cannula 2.0 06/19/16 04:00 36.5 87 18 152/67 95 Nasal Cannula 2.0 06/19/16 00:47 36.8 84 18 165/78 Room Air 06/18/16 23:06 36.3 88 20 126/76 97 Nasal Cannula 4 06/18/16 23:00 36.3 91 20 149/92 97 Nasal Cannula 4 06/18/16 22:50 100 20 142/101 97 Mask 10 06/18/16 22:40 95 20 166/96 97 Mask 10 06/18/16 22:30 90 20 174/94 97 Mask 10 06/18/16 22:20 112 20 173/113 95 Mask 10 06/18/16 22:19 36.2 130 18 190/108 91 Mask 10 06/18/16 19:29 37.5 78 20 112/68 94 06/18/16 19:28 78 20 112/68 94 Room Air 06/18/16 17:21 37.5 80 20 117/63 94 Room Air Physical Exam: GERMAIN drainage (serosanguinous), nasogastric drainage (bilious) General Appearance: WD/WN Respiratory/Chest: no accessory muscle use, + decreased breath sounds (at bases ) Cardiovascular: regular rate, rhythm Abdomen: soft, + abnormal bowel sounds (hypoactive), + tenderness (at incision) Incision(s): clean, dry, intact Laboratory Results: Results Past 24 Hours Test 06/18/16 17:57 06/18/16 18:10 06/18/16 19:40 06/19/16 01:09 Range/Units White Blood Count 29.96 4.8-10.8 K/uL Red Blood Count 4.63 4.2-5.4 M/uL Hemoglobin 14.1 12.0-16.0 g/dL Hematocrit 39.8 37-47 % Mean Corpuscular Volume 86.0 80-100 fL Mean Corpuscular Hemoglobin 30.5 25-34 pg Mean Corpuscular Hemoglobin Concent 35.4 32-36 g/dl Platelet Count 289 130-400 K/uL Mean Platelet Volume 10.6 7.4-10.4 fL Neutrophils (%) (Auto) 85.0 % Lymphocytes (%) (Auto) 8.9 % Monocytes (%) (Auto) 5.4 % Eosinophils (%) (Auto) 0.0 % Basophils (%) (Auto) 0.1 % Neutrophils # (Auto) 25.46 1.4-6.5 K/uL Lymphocytes # (Auto) 2.67 1.2-3.4 K/uL Monocytes # (Auto) 1.62 0.11-0.59 K/uL Eosinophils # (Auto) 0.01 0-0.5 K/uL Basophils # (Auto) 0.03 0-0.2 K/uL RDW Standard Deviation 40.1 36.4-46.3 fL RDW Coefficient of Variation 12.8 11.5-14.5 % Immature Granulocyte % (Auto) 0.6 % Immature Granulocyte # (Auto) 0.17 0.00-0.02 K/uL Sodium Level 132 136-145 mmol/L Potassium Level 3.3 3.5-5.1 mmol/L Chloride Level 92 98-107 mmol/L Carbon Dioxide Level 29 21-32 mmol/L Anion Gap 11.0 20.0 16-25 mmol/L Blood Urea Nitrogen 28 7-18 mg/dl Creatinine 1.10 0.60-1.20 mg/dl Estimated GFR () 61.0 Estimated GFR (Non- 52.6 BUN/Creatinine Ratio 25.1 10-20 Random Glucose 272 70-99 mg/dl Calcium Level 8.2 8.5-10.1 mg/dl Total Bilirubin 1.0 0.2-1 mg/dl Direct Bilirubin 0.3 0-0.2 mg/dl Aspartate Amino Transf (AST/SGOT) 12 15-37 U/L Alanine Aminotransferase (ALT/SGPT) 27 12-78 U/L Alkaline Phosphatase 87 45-117 U/L Troponin I < 0.015 < 0.015 0-0.045 ng/ml Total Protein 7.9 6.4-8.2 gm/dl Albumin 3.2 3.4-5.0 gm/dl Lipase 265 73-393 U/L Bedside Hemoglobin 14.3 12.0-16.0 g/dl Bedside Hematocrit 42 37-47 % Bedside Sodium 132 135-144 mEq/L Bedside Potassium 3.3 3.3-5.0 mEq/L Bedside Chloride 89 101-112 mEq/L Bedside Total CO2 27 24-31 mEq/l Bedside Blood Urea Nitrogen 29 7-18 mg/dl Bedside Creatinine 1.0 0.6-1.3 mg/dl Bedside Glucose (other) 274 70-99 mg/dl Bedside Ionized Calcium (Tomasz) 0.96 1.12-1.32 mmol/l Lactic Acid Level 1.6 0.4-2.0 mmol/L Bedside Glucose 234 70-90 mg/dl Test 06/19/16 06:50 06/19/16 06:53 06/19/16 12:19 Range/Units White Blood Count 21.50 4.8-10.8 K/uL Red Blood Count 4.15 4.2-5.4 M/uL Hemoglobin 12.9 12.0-16.0 g/dL Hematocrit 36.4 37-47 % Mean Corpuscular Volume 87.7 80-100 fL Mean Corpuscular Hemoglobin 31.1 25-34 pg Mean Corpuscular Hemoglobin Concent 35.4 32-36 g/dl RDW Standard Deviation 42.0 36.4-46.3 fL RDW Coefficient of Variation 13.0 11.5-14.5 % Platelet Count 267 130-400 K/uL Mean Platelet Volume 10.7 7.4-10.4 fL Prothrombin Time 13.4 9.0-12.0 SECONDS Prothromb Time International Ratio 1.2 0.9-1.1 Sodium Level 136 136-145 mmol/L Potassium Level 3.7 3.5-5.1 mmol/L Chloride Level 99 98-107 mmol/L Carbon Dioxide Level 25 21-32 mmol/L Anion Gap 12.0 3-11 mmol/L Blood Urea Nitrogen 28 7-18 mg/dl Creatinine 0.76 0.60-1.20 mg/dl Est Creatinine Clear Calc Drug Dose 99.3 ml/min Estimated GFR () 95.4 Estimated GFR (Non- 82.3 BUN/Creatinine Ratio 37.4 10-20 Random Glucose 272 70-99 mg/dl Calcium Level 7.3 8.5-10.1 mg/dl Hepatitis C Antibody NEG NEG Bedside Glucose 256 218 70-90 mg/dl Microbiology Results 06/18/16 Blood Culture, Received Pending 06/18/16 Blood Culture, Received Pending Assessment & Plan s/p repair of incarcerated hernia with small bowel perforation through umbilicus (small bowel resection, primary repair of hernia). Keep ngt until return of bowel function (small bowel was very dilated from long period of blockage). increase activity - explained she is high risk for DVT. on lovenox and scd's. Continue antibiotics for 7 days given the gross feculent contamination. Monitor labs. All questions answered. Dr. Conklin to check on pt tomorrow for me.
--- NOTE | 2016-06-19 15:58 | Pharmacy Progress Note ---
Glycemic Control Intl Consult Date of Service Jun 19, 2016. Scope Glycemic Pharmacist consulted by on 06/19/16 for glycemic control and to write orders per [facility] inpatient glycemic control protocol Objective Weight (Kilograms): 144.730 Accuchecks BSG (last 24hrs): Test 06/18/16 17:57 06/19/16 01:09 06/19/16 06:50 06/19/16 06:53 Random Glucose 272 mg/dl (70-99) 272 mg/dl (70-99) Bedside Glucose 234 mg/dl (70-90) 256 mg/dl (70-90) Test 06/19/16 12:19 Bedside Glucose 218 mg/dl (70-90) Laboratory Data (last 24hrs) Test 06/18/16 17:57 06/18/16 18:10 06/19/16 06:50 Anion Gap 11.0 mmol/L 20.0 mmol/L 12.0 mmol/L BUN/Creatinine Ratio 25.1 37.4 Blood Urea Nitrogen 28 mg/dl 28 mg/dl Creatinine 1.10 mg/dl 0.76 mg/dl Potassium Level 3.3 mmol/L 3.7 mmol/L Sodium Level 132 mmol/L 136 mmol/L White Blood Count 29.96 K/uL 21.50 K/uL Red Blood Count 4.63 M/uL Hemoglobin 14.1 g/dL Hematocrit 39.8 % Mean Corpuscular Volume 86.0 fL Mean Corpuscular Hemoglobin 30.5 pg Mean Corpuscular Hemoglobin Concent 35.4 g/dl Platelet Count 289 K/uL Mean Platelet Volume 10.6 fL Neutrophils (%) (Auto) 85.0 % Lymphocytes (%) (Auto) 8.9 % Monocytes (%) (Auto) 5.4 % Eosinophils (%) (Auto) 0.0 % Basophils (%) (Auto) 0.1 % Neutrophils # (Auto) 25.46 K/uL Lymphocytes # (Auto) 2.67 K/uL Monocytes # (Auto) 1.62 K/uL Eosinophils # (Auto) 0.01 K/uL Basophils # (Auto) 0.03 K/uL Recent Pertinent Medications Outpatient Anti-diabetic Regimen: * Metformin 500mg ER BIDM, Glyburide 5mg BIDM * A1c = 7.0 % from 02/26/16 * Will order an updated A1c with tomorrow's AM labs The patient is currently receiving: * Basal insulin: none * Correctional Insulin: Novolog Correction per scale ACHS Goal Range: Low 120 mg/dL - High 160 mg/dL Correction Factor: 20 mg/dL/unit * Prandial insulin: Per carb ratio of 1 unit per 0 grams CHO consumed Risk Factors for Insulin Resistance: * Infection: Perforated viscus * IVF:NS + 20 mEq KCl at 125 ml/hr * Recent Surgery: POD0; bowel resection * Diet: NPO (will be prolonged) Assessment & Plan ASSESSMENT: * ADA & AACE recommend a goal blood sugar range 140-180 mg/dl for the majority of critically ill & non-critically ill patients. However, more stringent targets may be selected in individual cases. * 65 yo female admitted yesterday who underwent emergent bowel resection late last night by Dr. Veronica. * Pt will likely be NPO for prolonged period of time, possibly requiring TPN. * No carb ratio necessary. * No updated A1c on record. Will order an A1c to be drawn with tomorrow's AM labs to assess outpatient control of BSGs on oral antihyperglycemic agents alone. * Will transition pt to SQ basal/bolus therapy with Novolog and Lantus. It is not recommended to continue oral agents during admission d/t increase risk for drug interactions, difficulty titrating doses, among other variables in the acute care setting. * Consider restarting Metformin 1-2 days prior to discharge if appropriate. * Begin inpatient glycemic regimen below based upon weight based dosing. * Add an overnight accuchek to aid in resolving overnight hyperglycemia. PLAN FOR INPATIENT GLYCEMIC CONTROL: * Start Lantus to 15 units SQ BID; give 1/2 dose for BSG below 120 mg/dl * Novolog ACHS + 02 * Set correction factor to 20 mg/dl/unit * No carb ratio (no diet) * Set goal range to Low 120 mg/dL - High 160 mg/dL * Please note that the plan above was derived based on current level of insulin resistance and hospital stress. These recommendations are appropriate for inpatient admission only. Plan of care upon discharge will need to be reassessed to avoid potential outpatient hypo/hyperglycemia. Thank you.
[2016-06-19] MEDS: MoRPHine SULFATE 2 MG/ML CARP IV PRN ×2 (16:23→22:42)
[2016-06-20] VITALS (10 sets, daily range): BP systolic 132–148; BP diastolic 86–90; PULSE 96–115; TEMP 36.6–37.1; O2SAT 94–98
[2016-06-20] MEDS: NSS + 20MEQ KCL 1000ML 1,000 ML IV SCH ×4 (00:56→22:39)
[2016-06-20] MEDS: PIPERACILL/TAZOBAC IV 4.5 GM in DEXTROSE 5% 100ML 100 ML IV SCH ×3 (02:42→18:38)
[2016-06-20] MEDS: MoRPHine SULFATE 2 MG/ML CARP IV PRN ×2 (02:43→11:16)
[2016-06-20] MEDS: INSULIN ASPART 100 UNITS/ML 3 ML PEN SC SCH ×5 (04:00→17:37)
[2016-06-20 07:32] LABS: HEMATOCRIT 34.9 % (37-47); MEAN CELL VOLUME 89.3 fL (80-100); MEAN CORPUSCULAR HEMOGLOBIN 29.9 pg (25-34); MEAN CORPUSCULAR HGB CONC 33.5 g/dl (32-36); MEAN PLATELET VOLUME 10.3 fL (7.4-10.4); PLATELET COUNT 242 K/uL (130-400); RED BLOOD COUNT 3.91 M/uL (4.2-5.4); WHITE BLOOD COUNT 14.44 K/uL (4.8-10.8)
[2016-06-20] MEDS: MoRPHine SULFATE 4 MG/ML 1 ML CARP\\VIAL IV PRN ×4 (07:50→22:30)
[2016-06-20 07:59] LABS: BUN/CREATININE RATIO 46.5 (10-20); CALCIUM 7.1 mg/dl (8.5-10.1); CREATININE 0.42 mg/dl (0.60-1.20); MAGNESIUM 1.6 mg/dl (1.8-2.4); POTASSIUM 3.4 mmol/L (3.5-5.1)
[2016-06-20 08:00] LABS: PHOSPHORUS 1.9 mg/dl (2.5-4.9)
[2016-06-20 08:06] LABS: ESTIMATED AVERAGE GLUCOSE 163 mg/dl; HA1C FLAG Normal (Normal)
[2016-06-20] MEDS: LEVOTHYROXINE SODIUM IV SCH (08:50)
[2016-06-20] MEDS: ENOXAPARIN 40 MG/0.4 ML SYR SQ SCH (08:51)
[2016-06-20] MEDS: INSULIN GLARGINE SOLOSTAR 100 UNITS/ML 3 ML PEN SC SCH ×2 (08:52→21:29)
--- NOTE | 2016-06-20 09:44 | Family Medicine Progress Note ---
Progress Note Date of Service Jun 20, 2016. Subjective Pt evaluation today including: conversation w/ patient, physical exam, chart review, lab review The patient was seen and examined at bedside. S/p bowel resection post op Day # 2. Pt is c/o continued abdominal and back pain. NG tube drained approximately 600mL over brown liquid over the past 12 hours. Velazquez catheter in place draining yellow fluid. Urine output overnight was around 350mL. Telemetry revealed sinus rhythm with rate between 80s-100s overnight. Pt denies passing flatus overnight. Plan of care was described to the patient and all questions were answered. Constitutional: No chills, No fever Respiratory: No cough, No shortness of breath, No wheezing Cardiovascular: No chest pain Abdomen: + pain Objective Physical Exam General Appearance: WD/WN, + mild distress, + obese Respiratory/Chest: chest non-tender, lungs clear, normal breath sounds, no respiratory distress, no accessory muscle use, + pertinent finding (Only ausculated anteriorly because pt complained of abdominal pain. ) Cardiovascular: no edema, no gallop, no JVD, no murmur, + tachycardia Abdomen: + pertinent finding (soft, tender in the midline, no gaurding, well healing well draining abdominal incision. Warm to palpation bilaterally, non erythematous aside from the wound. ) Extremities: non-tender, normal inspection, no pedal edema, + calf tenderness ( right calf tenderness) Neurologic/Psychiatric: alert, normal mood/affect, oriented x 3 Assessment and Plan 65F presenting with a 7 day history of nausea and vomiting and a one day history of fecal matter draining from the umbilicus with associated abdominal pain. CT scan in the ER showed bowel incarceration. Taken to the OR emergently on 06/18/16. Partial small bowel resection by Dr. Veronica with anastamosis. Pt was sent to telemetry post operative. Patient is reporting moderate abdominal pain that is being controlled with Oxycodone 4mg IV PRN + 2mg IV for breakthrough pain. Pt is stable, monitor labs especially Mg and Phos and control pain. Post Op Day #1 for Perforated Viscus - Pt is doing well clinically, continues to be NPO. NG tube is draining brown fluid. Pt got to chair today. - monitor and control pain with oxycodone 4mg IV Q4 PRN with 2mg IV Q4 PRN for breakthrough episodes. - c/w Zosyn IV x 7 days. - IVF KCl increased to @150mls/hr - Mg was 1.6, given 2mg IV. - Phosphorous was 1.9, given 15mmol IV sodium phosphate. - f/u BMP, CBC,Mg, Phos tomorrow. R. Calf Tenderness - Has been going on for weeks according to patient. - Venous doppler US bilaterally, today. HTN - monitoring BP closely, holding home HTN meds at present. DM2 - ISS, c/w Lantus 15 units + 3 units Novolog Chronic Back Pain - c/w current pain management regimen. Hypothyroid - c/w IV synthroid 60mcg IV daily. DVT Proph: Lovenox 40mg SQ daily Dispo: Tele, NPO, Full Code. Resident Physician Supervision Note: I was present with the resident physician during the history and exam. I discussed the case with the resident and agree with the findings and plan as documented in the note. Any exceptions or clarifications are listed here: 65- year-old female postop day #2 repair of perforated viscus. Upon our examination today, she was out of bed to a chair. She described abdominal pain with movement but overall her pain seems to be less when compared to yesterday. She did note some lower extremity discomfort/pain upon my examination I question if she had some posterior calf tenderness. The patient states she's had leg pain that's been somewhat chronic in nature; there is no edema of though given her recent immobility agree with LE Dopplers to exclude venous thrombosis. Slight abnormalities of magnesium and phosphorus with replacement as noted above. Documented By: Patric Watson Resident Involvement: Resident Care Provided Care Provided: Adult Hospital Medicine
[2016-06-20] MEDS ORDERED: MoRPHine SULFATE 2 MG/ML CARP IV PRN (09:45)
[2016-06-20] MEDS ORDERED: OXYCODONE HCL IR 5 MG TAB (IMMEDIATE RELEASE) PO PRN (09:45)
[2016-06-20] MEDS ORDERED: SODIUM PHOSPHATE 3 MMOL/1 ML INFUSION IV STA (10:40)
[2016-06-20] MEDS: PANTOprazole INJ 40 MG in SYRINGE 0 ML IV SCH (11:16)
[2016-06-20] MEDS ORDERED: POTASSIUM PHOSPHATE INJ 15 MMOL in SODIUM CHLORIDE 0.9% 250ML 250 ML IV SCH (11:30)
--- NOTE | 2016-06-20 12:09 | Pharmacy Progress Note ---
Glycemic Control: Progress Nt Date of Service Jun 20, 2016. Scope Glycemic Pharmacist consulted by Dr Alcaraz on 06/19/16 for glycemic control and to write orders per [facility] inpatient glycemic control protocol. Objective Accuchecks BSG (last 24hrs): Test 06/19/16 12:19 06/19/16 16:21 06/19/16 21:19 06/20/16 00:09 Bedside Glucose 218 mg/dl (70-90) 178 mg/dl (70-90) 141 mg/dl (70-90) 134 mg/dl (70-90) Test 06/20/16 04:05 06/20/16 06:56 Bedside Glucose 124 mg/dl (70-90) Random Glucose 133 mg/dl (70-99) Laboratory Data (last 24hrs) Test 06/20/16 06:56 Anion Gap 7.0 mmol/L BUN/Creatinine Ratio 46.5 Blood Urea Nitrogen 20 mg/dl Creatinine 0.42 mg/dl Hemoglobin A1c 7.3 % Potassium Level 3.4 mmol/L Sodium Level 139 mmol/L White Blood Count 14.44 K/uL HbA1c: Test 06/20/16 06:56 Hemoglobin A1c 7.3 % (4.5-5.6) H Recent Pertinent Medications Outpatient Anti-diabetic Regimen: * Metformin ER 500mg PO BIDM * Glyburide 5mg PO BIDM The patient is currently receiving: * Basal insulin: Lantus 15 units every 12 hours (Administer 1/2 dose if BSG < 120mg/dl) * Correctional Insulin: Novolog Correction per scale ACHS Goal Range: Low 120 mg/dL - High 140 mg/dL Correction Factor: 20 mg/dL/unit * Prandial insulin: Per carb ratio of 1 unit per -- grams CHO consumed ( NPO) Risk Factors for Insulin Resistance: * Infection * Recent Surgery Assessment & Plan ASSESSMENT: * 65yo T2DM female with adequate outpatient control per recent A1c of 7.3% on 06/20/16 * Pt is maintained on oral anti-diabetic agents as an outpatient. These were held on admission and pt initiated on conservative weight based SQ basal bolus bolus insulin regimen for an insulin naive patient * Pt has received 41 units of insulin over the past 24hrs * 30 units of basal insulin with Lantus + 11 units of correctional insulin for stress hyperglycemia * BSGs well controlled on current regimen and are ranging 124-218mg/dl over the past 24hrs * Regimen is mostly basal insulin d/t NPO status. * No CR is ordered but pt is NPO, will order CR so that rebound hyperglycemia does not occur once diet is advanced * ADA & AACE recommend a goal blood sugar range 140-180 mg/dl for the majority of critically ill & non-critically ill patients. However, more stringent targets may be selected in individual cases. Will utilize more stringent target of 120-140mg/dl for a well controlled diabetic and to facilitate healing post- operatively. PLAN FOR INPATIENT GLYCEMIC CONTROL: * CONTINUE Basal insulin with LANTUS 15 units SQ BID * Administer 1/2 dose if BSG < 120 mg/dl * Correctional Insulin with NOVOLOG per scale ACHS or Q6hrs while NPO --> was Q4hrs but has not been requiring correctional insulin. Will change to Q6hrs for patient comfort * Goal Range: Low 120 mg/dL - High 140 mg/dL * Correction Factor: 20 mg/dL/unit * Nutritional / Prandial insulin per carb ratio of 1 unit per 7 grams CHO consumed * Please note that the plan above was derived based on current level of insulin resistance and hospital stress. These recommendations are appropriate for inpatient admission only. Plan of care upon discharge will need to be reassessed to avoid potential outpatient hypo/hyperglycemia. Thank you.
--- NOTE | 2016-06-20 12:11 | Surgery Progress Note ---
Surgery Progress Note Date of Service Jun 20, 2016. Subjective Post OP Day: 2 No bowel movement, No flatus, No nausea, No vomiting OOB in chair Objective Vital Signs: Date Time Temp Pulse Resp B/P Pulse Ox O2 Delivery O2 Flow Rate FiO2 06/20/16 11:15 36.6 96 18 140/89 98 Room Air 06/20/16 07:39 37.1 111 18 139/88 94 Room Air 06/20/16 04:00 Nasal Cannula 06/20/16 04:00 120 135/86 06/20/16 03:59 36.8 115 18 135/86 96 Nasal Cannula 2.0 06/19/16 23:59 Nasal Cannula 06/19/16 23:43 37.1 93 18 122/79 96 Nasal Cannula 2.0 06/19/16 20:00 Nasal Cannula 06/19/16 19:28 37.1 110 20 125/83 96 06/19/16 16:00 Nasal Cannula 06/19/16 15:36 36.9 92 20 102/80 94 Nasal Cannula 2.0 Physical Exam: GERMAIN drainage (90 cc yesterday, 10 cc last shift, serosanguinous) , nasogastric drainage (1050 cc yesterday, 200 cc last shift) Abdomen: + abnormal bowel sounds (none), + distended, + tenderness Incision(s): clean, dry, intact, no erythema, no drainage Laboratory Results: Results Past 24 Hours Test 06/19/16 12:19 06/19/16 16:21 06/19/16 21:19 06/20/16 00:09 Range/Units Bedside Glucose 218 178 141 134 70-90 mg/dl Test 06/20/16 04:05 06/20/16 06:56 Range/Units Bedside Glucose 124 70-90 mg/dl White Blood Count 14.44 4.8-10.8 K/uL Red Blood Count 3.91 4.2-5.4 M/uL Hemoglobin 11.7 12.0-16.0 g/dL Hematocrit 34.9 37-47 % Mean Corpuscular Volume 89.3 80-100 fL Mean Corpuscular Hemoglobin 29.9 25-34 pg Mean Corpuscular Hemoglobin Concent 33.5 32-36 g/dl RDW Standard Deviation 42.2 36.4-46.3 fL RDW Coefficient of Variation 13.1 11.5-14.5 % Platelet Count 242 130-400 K/uL Mean Platelet Volume 10.3 7.4-10.4 fL Sodium Level 139 136-145 mmol/L Potassium Level 3.4 3.5-5.1 mmol/L Chloride Level 104 98-107 mmol/L Carbon Dioxide Level 28 21-32 mmol/L Anion Gap 7.0 3-11 mmol/L Blood Urea Nitrogen 20 7-18 mg/dl Creatinine 0.42 0.60-1.20 mg/dl Est Creatinine Clear Calc Drug Dose 167.8 ml/min Estimated GFR () 124.7 Estimated GFR (Non- 107.6 BUN/Creatinine Ratio 46.5 10-20 Random Glucose 133 70-99 mg/dl Estimated Average Glucose 163 mg/dl Hemoglobin A1c 7.3 4.5-5.6 % Calcium Level 7.1 8.5-10.1 mg/dl Phosphorus Level 1.9 2.5-4.9 mg/dl Magnesium Level 1.6 1.8-2.4 mg/dl Assessment & Plan S/P partial small bowl resection with repair of ventral hernia for perforated viscus Feels better today No bowel function as yet Continue NGT Continue antibiotics
[2016-06-20] MEDS: MAGNESIUM SULFATE 1GM / D5W 1 GM in PREMIXED IN D5W 100 ML IV SCH ×2 (12:26→13:41)
--- NOTE | 2016-06-20 15:33 | DIAGNOSTIC IMAGING REPORT ---
ULTRASOUND BILATERAL LOWER EXTREMITY VENOUS CLINICAL HISTORY: Calf tenderness. COMPARISON STUDY: No priors. TECHNIQUE: Real-time, grayscale, and color Doppler sonography of the deep veins of the right and left lower extremity was performed from the inguinal crease to the calf. Compression and augmentation were utilized. FINDINGS: There is no sonographic evidence of deep venous thrombosis identified in the right or left lower extremity. The common femoral, superficial femoral, and popliteal veins are patent and normally compressible bilaterally. The greater saphenous vein and the profunda femoris vein at the junction with the common femoral vein are clear in both legs. The visualized calf veins are patent bilaterally. A left popliteal cyst measures 3.4 x 1.1 x 2.0 cm. IMPRESSION: 1. There is no sonographic evidence of deep venous thrombosis identified in the right or left lower extremity. 2. Small left popliteal cyst. Electronically signed by: Trent Torres M.D. 06/20/2016 3:31 PM Dictated Date/Time: 06/20/2016 3:30 PM
[2016-06-20 18:26] LABS: MAGNESIUM 1.9 mg/dl (1.8-2.4); PHOSPHORUS 1.9 mg/dl (2.5-4.9)
[2016-06-21] VITALS (12 sets, daily range): BP systolic 128–159; BP diastolic 69–102; PULSE 84–123; TEMP 36.5–37.3; O2SAT 89–98
[2016-06-21] MEDS: PIPERACILL/TAZOBAC IV 4.5 GM in DEXTROSE 5% 100ML 100 ML IV SCH ×3 (02:56→19:36)
[2016-06-21] MEDS: MoRPHine SULFATE 4 MG/ML 1 ML CARP\\VIAL IV PRN ×5 (02:59→21:01)
[2016-06-21] MEDS: INSULIN ASPART 100 UNITS/ML 3 ML PEN SC SCH ×5 (05:49→23:55)
[2016-06-21] MEDS: NSS + 20MEQ KCL 1000ML 1,000 ML IV SCH (05:49)
--- NOTE | 2016-06-21 07:19 | Pharmacy Progress Note ---
Glycemic Control: Progress Nt Date of Service Jun 21, 2016. Scope Glycemic Pharmacist consulted by Dr Alcaraz on 06/19/16 for glycemic control and to write orders per [facility] inpatient glycemic control protocol. Objective Accuchecks BSG (last 24hrs): Test 06/20/16 13:06 06/20/16 16:07 06/20/16 20:09 06/20/16 23:23 Bedside Glucose 111 mg/dl (70-90) 130 mg/dl (70-90) 136 mg/dl (70-90) 104 mg/dl (70-90) Test 06/21/16 04:44 06/21/16 05:46 06/21/16 06:17 Bedside Glucose 69 mg/dl (70-90) 100 mg/dl (70-90) Laboratory Data (last 24hrs) Test 06/21/16 04:44 HbA1c: Test 06/20/16 06:56 Hemoglobin A1c 7.3 % (4.5-5.6) H Recent Pertinent Medications Outpatient Anti-diabetic Regimen: * Metformin ER 500mg PO BIDM * Glyburide 5mg PO BIDM The patient is currently receiving: * Basal insulin: Lantus 15 units every 12 hours (Administer 1/2 dose if BSG < 120mg/dl) * Correctional Insulin: Novolog Correction per scale ACHS Goal Range: Low 120 mg/dL - High 140 mg/dL Correction Factor: 20 mg/dL/unit * Prandial insulin: Per carb ratio of 1 unit per -- grams CHO consumed ( NPO) Risk Factors for Insulin Resistance: * Infection * Recent Surgery Assessment & Plan ASSESSMENT: * 65yo T2DM female with adequate outpatient control per recent A1c of 7.3% on 06/20/16 * Pt is maintained on oral anti-diabetic agents as an outpatient. These were held on admission and pt initiated on conservative weight based SQ basal bolus bolus insulin regimen for an insulin naive patient * Pt has received 30 units of insulin over the past 24hrs * 30 units of basal insulin with Lantus + 0 units of correctional insulin for stress hyperglycemia * Pt with low BSG this morning, BSG = 69mg/dl. Pt was treated with D50 IV for NPO. * BSGs ranging 104-136mg/dl yesterday. This is slightly lower than desired. Basal insulin will need decreased. * No CR is ordered but pt is NPO, will order CR so that rebound hyperglycemia does not occur once diet is advanced * ADA & AACE recommend a goal blood sugar range 140-180 mg/dl for the majority of critically ill & non-critically ill patients. However, more stringent targets may be selected in individual cases. Will utilize more stringent target of 120-140mg/dl for a well controlled diabetic and to facilitate healing post- operatively. PLAN FOR INPATIENT GLYCEMIC CONTROL: * DECREASE Basal insulin with LANTUS 15 units SQ HS. No Lantus this morning. * Administer 1/2 dose if BSG < 120 mg/dl * Correctional Insulin with NOVOLOG per scale ACHS or Q6hrs while NPO * Goal Range: Low 120 mg/dL - High 140 mg/dL * Correction Factor: 20 mg/dL/unit * Nutritional / Prandial insulin per carb ratio of 1 unit per 7 grams CHO consumed * Please note that the plan above was derived based on current level of insulin resistance and hospital stress. These recommendations are appropriate for inpatient admission only. Plan of care upon discharge will need to be reassessed to avoid potential outpatient hypo/hyperglycemia. Thank you.
[2016-06-21 07:28] LABS: HEMATOCRIT 32.5 % (37-47); MEAN CELL VOLUME 90.8 fL (80-100); MEAN CORPUSCULAR HEMOGLOBIN 30.2 pg (25-34); MEAN CORPUSCULAR HGB CONC 33.2 g/dl (32-36); MEAN PLATELET VOLUME 10.1 fL (7.4-10.4); PLATELET COUNT 249 K/uL (130-400); RED BLOOD COUNT 3.58 M/uL (4.2-5.4); WHITE BLOOD COUNT 11.78 K/uL (4.8-10.8)
--- NOTE | 2016-06-21 07:46 | Surgery Progress Note ---
Surgery Progress Note Date of Service Jun 21, 2016. Subjective Post OP Day: 3 + pain controlled no major complaints. no bm yet. Objective Vital Signs: Date Time Temp Pulse Resp B/P Pulse Ox O2 Delivery O2 Flow Rate FiO2 06/21/16 07:39 36.8 84 20 128/84 94 Room Air 06/21/16 04:00 Nasal Cannula 2.0 06/21/16 03:08 36.7 84 18 128/90 98 Nasal Cannula 2.0 06/21/16 00:01 97 Nasal Cannula 2.0 06/20/16 23:16 36.9 104 20 148/87 97 Nasal Cannula 2.0 06/20/16 20:00 98 Nasal Cannula 2.0 06/20/16 19:39 36.8 105 21 136/90 98 Nasal Cannula 2.0 06/20/16 16:00 97 Nasal Cannula 2.0 06/20/16 15:59 36.6 99 18 132/86 97 Nasal Cannula 2.0 06/20/16 12:00 98 Nasal Cannula 2.0 06/20/16 11:15 36.6 96 18 140/89 98 Room Air 06/20/16 08:00 94 Nasal Cannula 2.0 Physical Exam: nasogastric drainage General Appearance: no apparent distress Head: normocephalic Abdomen: non distended, soft Incision(s): clean, dry, intact, no erythema Laboratory Results: Results Past 24 Hours Test 06/20/16 13:06 06/20/16 16:07 06/20/16 17:40 06/20/16 20:09 Range/Units Bedside Glucose 111 130 136 70-90 mg/dl Phosphorus Level 1.9 2.5-4.9 mg/dl Magnesium Level 1.9 1.8-2.4 mg/dl Test 06/20/16 23:23 06/21/16 05:46 06/21/16 06:17 06/21/16 07:15 Range/Units Bedside Glucose 104 69 100 70-90 mg/dl White Blood Count 11.78 4.8-10.8 K/uL Red Blood Count 3.58 4.2-5.4 M/uL Hemoglobin 10.8 12.0-16.0 g/dL Hematocrit 32.5 37-47 % Mean Corpuscular Volume 90.8 80-100 fL Mean Corpuscular Hemoglobin 30.2 25-34 pg Mean Corpuscular Hemoglobin Concent 33.2 32-36 g/dl RDW Standard Deviation 43.3 36.4-46.3 fL RDW Coefficient of Variation 13.0 11.5-14.5 % Platelet Count 249 130-400 K/uL Mean Platelet Volume 10.1 7.4-10.4 fL Assessment & Plan POD #3 awaiting bowel fx still getting moderate ngt output--keep ngt for now until bm pain management adequate increase activity.
[2016-06-21] MEDS: ENOXAPARIN 40 MG/0.4 ML SYR SQ SCH (07:54)
[2016-06-21 07:56] LABS: BUN/CREATININE RATIO 33.8 (10-20); CALCIUM 7.2 mg/dl (8.5-10.1); CREATININE 0.39 mg/dl (0.60-1.20); POTASSIUM 3.8 mmol/L (3.5-5.1)
[2016-06-21] MEDS: LEVOTHYROXINE SODIUM IV SCH (09:29)
[2016-06-21] MEDS: PANTOprazole INJ 40 MG in SYRINGE 0 ML IV SCH (11:41)
--- NOTE | 2016-06-21 11:42 | Family Medicine Progress Note ---
Progress Note Date of Service Jun 21, 2016. Subjective Pt evaluation today including: conversation w/ patient, physical exam, chart review, lab review, review of inpatient medication list Pain: adequately controlled PO Intake: NPO Voiding: fry catheter in place Patient lying comfortably in bed and in no acute distress. Had no acute events overnight. NG tube still draining >500 ml of dark faecal matter. Patient still NPO. Has been passing gas very intermittently but still has not had a bowel movement. Pain is adequately controlled at the moment. Patient no longer experiencing calf pain (pain had negative doppler yesterday) Patient was seen by surgeon this morning who encouraged increase in mobility. Constitutional: No chills, No fever, No sweats Cardiovascular: No chest pain, No edema, No palpitations Abdomen: No nausea, No pain, No vomiting Objective Physical Exam General Appearance: no apparent distress, + obese, + pertinent finding (NG tube in place, draining dark brown matter) Neck: supple, trachea midline Respiratory/Chest: chest non-tender, lungs clear, normal breath sounds, + pertinent finding (only able to listen anteriorly due to ab pain) Cardiovascular: regular rate, rhythm, no murmur Abdomen: + pertinent finding (soft abdomen with dressing over midline. No surrounding erythema or obvious drainage. has a drain tube in place and draining small amount of red/pink liquid <15ml)) Neurologic/Psychiatric: alert, normal mood/affect, oriented x 3 Assessment and Plan 65F taken to OR on 06/18/16 with umbilical hernia incarceration and perforation. Had a small bowel resection w/anastamosis. She is currently day 3 post op. Post op day 3 for hernia incarceration and perforation - NG tube draining brown fluid - adequate pain control with oxycodone - day 3/7 for zosyn - IV fluids 150mls/hr - Mag 1.9 (WNL) - Phos 1.9 --> will talk to Dr. Watson with regards to IV sodium phosphate Right calf pain - resolved - Doppler neg for DVT - patient encourage to increase mobilization HTN - home meds held - BP 128/90 DM2 - ISS, c/w Lantus 15 units + 3 units Novolog Hypothyroid - synthroid IV DVT - lovenox Dispo - NPO - Full code Resident Physician Supervision Note: I was present with Dr. Morales during the history and exam. I discussed the case with the resident and agree with the findings and plan as documented in the note. Any exceptions or clarifications are listed here: 65-year-old female postop day #3 status post repair of perforated viscus with reanastomosis. Upon my visit today she's had a bed seated in a chair talking to her daughter. Her pain seems well controlled. She notes flatus but no bowel movements. Her NG tube still showing brown colored fluid. She is afebrile. HEENT unremarkable. Mucous membranes are pink and moist. Heart regular rate and rhythm. Occasional bowel sounds. Extremities with slight edema no calf tenderness. White blood cell count is improved at 11.78. Phosphorus is still low at 1.9. Doppler examination of the lower extremities is negative yesterday. Plan 1) She is stable for the floor. 2) Check vitamin D level and PTH. 3) Change fluid to D5 half-normal saline. 4) Defer to surgery with regards diet advancement. Documented By: Patric Watson Continued [facility] stay due to: multiple IV medications needed
[2016-06-21] MEDS: D5W AND 1/2NSS + 20MEQ KCL 1,000 ML IV SCH ×2 (16:42→23:54)
[2016-06-21] MEDS: INSULIN GLARGINE SOLOSTAR 100 UNITS/ML 3 ML PEN SC SCH (21:15)
[2016-06-22] VITALS (8 sets, daily range): BP systolic 137–166; BP diastolic 80–109; PULSE 102–129; TEMP 36.9–38.2; O2SAT 91–97
[2016-06-22] MEDS: MoRPHine SULFATE 4 MG/ML 1 ML CARP\\VIAL IV PRN ×5 (00:50→19:22)
[2016-06-22] MEDS: PIPERACILL/TAZOBAC IV 4.5 GM in DEXTROSE 5% 100ML 100 ML IV SCH ×3 (03:04→18:32)
[2016-06-22] MEDS: INSULIN ASPART 100 UNITS/ML 3 ML PEN SC SCH ×3 (06:15→18:31)
[2016-06-22 07:01] LABS: HEMATOCRIT 33.3 % (37-47); MEAN CELL VOLUME 89.3 fL (80-100); MEAN CORPUSCULAR HEMOGLOBIN 30.3 pg (25-34); MEAN CORPUSCULAR HGB CONC 33.9 g/dl (32-36); MEAN PLATELET VOLUME 10.1 fL (7.4-10.4); PLATELET COUNT 251 K/uL (130-400); RED BLOOD COUNT 3.73 M/uL (4.2-5.4); WHITE BLOOD COUNT 8.12 K/uL (4.8-10.8)
[2016-06-22 07:24] LABS: BUN/CREATININE RATIO 18.4 (10-20); CALCIUM 7.3 mg/dl (8.5-10.1); CREATININE 0.37 mg/dl (0.60-1.20); POTASSIUM 3.9 mmol/L (3.5-5.1)
--- NOTE | 2016-06-22 07:50 | Surgery Progress Note ---
Surgery Progress Note Date of Service Jun 22, 2016. Subjective Post OP Day: 4 no new complaints. no bm yet no appetite Objective Vital Signs: Date Time Temp Pulse Resp B/P Pulse Ox O2 Delivery O2 Flow Rate FiO2 06/22/16 07:03 36.9 121 16 154/100 97 Room Air 06/22/16 00:03 Nasal Cannula 2.0 06/21/16 23:47 37.2 123 16 153/102 89 Room Air 06/21/16 19:25 37.3 116 18 153/95 93 Room Air 06/21/16 17:12 36.8 98 18 93 2.0 06/21/16 17:08 36.8 98 18 159/91 93 Room Air 06/21/16 17:05 Room Air 06/21/16 16:00 95 Room Air 06/21/16 15:20 37.1 116 16 136/83 95 Room Air 06/21/16 12:00 95 Nasal Cannula 2.0 06/21/16 11:48 36.5 108 22 136/69 93 Nasal Cannula 2.0 06/21/16 08:00 94 Nasal Cannula 2.0 Physical Exam: nasogastric drainage (still bilious output) General Appearance: no apparent distress Head: normocephalic Neck: supple Abdomen: soft, + distended Incision(s): clean, dry, intact Laboratory Results: Results Past 24 Hours Test 06/21/16 11:26 06/21/16 18:31 06/21/16 20:53 06/21/16 23:46 Range/Units Bedside Glucose 86 93 125 140 70-90 mg/dl Test 06/22/16 06:08 06/22/16 06:20 Range/Units Bedside Glucose 157 70-90 mg/dl White Blood Count 8.12 4.8-10.8 K/uL Red Blood Count 3.73 4.2-5.4 M/uL Hemoglobin 11.3 12.0-16.0 g/dL Hematocrit 33.3 37-47 % Mean Corpuscular Volume 89.3 80-100 fL Mean Corpuscular Hemoglobin 30.3 25-34 pg Mean Corpuscular Hemoglobin Concent 33.9 32-36 g/dl RDW Standard Deviation 41.0 36.4-46.3 fL RDW Coefficient of Variation 12.7 11.5-14.5 % Platelet Count 251 130-400 K/uL Mean Platelet Volume 10.1 7.4-10.4 fL Sodium Level 138 136-145 mmol/L Potassium Level 3.9 3.5-5.1 mmol/L Chloride Level 102 98-107 mmol/L Carbon Dioxide Level 28 21-32 mmol/L Anion Gap 8.0 3-11 mmol/L Blood Urea Nitrogen 7 7-18 mg/dl Creatinine 0.37 0.60-1.20 mg/dl Est Creatinine Clear Calc Drug Dose 204.0 ml/min Estimated GFR () 130.0 Estimated GFR (Non- 112.1 BUN/Creatinine Ratio 18.4 10-20 Random Glucose 161 70-99 mg/dl Calcium Level 7.3 8.5-10.1 mg/dl Assessment & Plan jun POD #4 continues to improve no bowel fx yet and still with bilious ngt outpt keep ngt/npo for now pt/ot no acute surgical issues jun 21, 2016 POD #3 awaiting bowel fx still getting moderate ngt output--keep ngt for now until bm pain management adequate increase activity. POD #3 awaiting bowel fx still getting moderate ngt output--keep ngt for now until bm pain management adequate increase activity.
[2016-06-22] MEDS: D5W AND 1/2NSS + 20MEQ KCL 1,000 ML IV SCH ×2 (08:17→17:36)
[2016-06-22] MEDS: ENOXAPARIN 40 MG/0.4 ML SYR SQ SCH (09:49)
[2016-06-22] MEDS: LEVOTHYROXINE SODIUM IV SCH (09:49)
--- NOTE | 2016-06-22 10:07 | Family Medicine Progress Note ---
Progress Note Date of Service Jun 22, 2016. Subjective Pt evaluation today including: conversation w/ family, physical exam, review of studies, conversation w/ product/industry consultant, review of inpatient medication list Pain: none PO Intake: NPO Voiding: fry catheter in place Patient lying comfortably in bed and in no acute distress. No acute events overnight. She is still NPO. She is having increase flatus but has not had a bowel movement yet. NG tube only drained 50ml so far today. Will most likely be able to take out NG tube tomorrow. Patient is still fairly immobile (will order PT/OT) and has had increase sputum production and has been tachycardic overnight so will order stat EKG and CXR. Was found to be vit D deficient so will therefore supplement orally. Constitutional: + weakness, No chills, No fever Respiratory: + cough, + sputum, No shortness of breath, No wheezing Cardiovascular: No chest pain, No edema, No palpitations Abdomen: + constipation, No diarrhea, No nausea, No pain, No vomiting Objective Physical Exam General Appearance: WD/WN, no apparent distress, + obese, + pertinent finding ( NG tube inserted and draining fluid very slowly) ENT: hearing grossly normal, pharynx normal Respiratory/Chest: chest non-tender, no respiratory distress, no accessory muscle use, + pertinent finding (difficult to listen to breath sounds as patient unable to sit up straight) Cardiovascular: no JVD, no murmur, + irregularly irregular Abdomen: normal bowel sounds, non tender, soft, + pertinent finding (large dressing over midline of abdomen. No surrounding erythema or discharge) Extremities: non-tender, normal inspection, no pedal edema, no calf tenderness Neurologic/Psychiatric: alert, normal mood/affect, oriented x 3 Assessment and Plan 65F taken to OR on 06/18/16 with umbilical hernia incarceration and perforation. Had a small bowel resection w/anastamosis. She is currently day 4 post op. Post op day 4 for hernia incarceration and perforation - NG tube draining brown fluid (less than 100ml today) - adequate pain control with oxycodone - day 4 for zosyn - IV fluids 100 mls/hr D5 with1/2 NS - Mag 1.9 (WNL) - Phos 1.9 will repeat lab tomorrow - Followed by GI (Dr. Marroquin) Increased sputum production and tachycardic - patient bed bound - EKG and CXR ordered - ordered PT to help with mobilization Vit D Deficiency - vit D=6.7 - pth= 65.2 - supplement with vit D Right calf pain - resolved - Doppler neg for DVT - patient encourage to increase mobilization HTN - home meds held - BP 154/100 DM2 - ISS, c/w Lantus 15 units + 3 units Novolog Hypothyroid - synthroid IV DVT - lovenox Dispo - NPO - Full code Resident Physician Supervision Note: I was present with Dr. Morales during the history and exam. I discussed the case with the resident and agree with the findings and plan as documented in the note. Any exceptions or clarifications are listed here: The patient is seen today on the medical floor. The patient is a bit more tired today when compared to yesterday. She denies abdominal pain. NG tube continues to drain around liquid. She remains nothing by mouth per surgery. Blood pressure has been intermittently high; home blood pressure medications remain on hold. Will continue to monitor; anticipate restarting tomorrow. Chest x-ray suggests that NG tube needs to be advanced between 5 and 10 cm. Will advance approximate 7-1/2 cm and recheck a chest x-ray. Documented By: Patric Watson Continued [facility] stay due to: multiple IV medications needed
--- NOTE | 2016-06-22 10:58 | DIAGNOSTIC IMAGING REPORT ---
CHEST 2 VIEWS ROUTINE HISTORY: Increased cough and sputum production COMPARISON: Chest 06/18/2016. FINDINGS: Nasogastric tube terminates in the proximal stomach. This should be advanced by 5 to 10 cm. No pneumothorax. No pleural effusions. Mild interstitial thickening has improved. No new focal lung consolidations. The heart remains mildly enlarged. Slight elevation of the right hemidiaphragm. IMPRESSION: 1. Near complete resolution of the pulmonary vascular congestion. 2. Cardiomegaly persists. 3. No new focal lung consolidations. 4. Nasogastric tube terminates in the proximal stomach. This should be advanced by 5 to 10 cm. Electronically signed by: Villa Newman M.D. 06/22/2016 10:56 AM Dictated Date/Time: 06/22/2016 10:54 AM
[2016-06-22] MEDS: PANTOprazole INJ 40 MG in SYRINGE 0 ML IV SCH (11:54)
--- NOTE | 2016-06-22 16:30 | DIAGNOSTIC IMAGING REPORT ---
CHEST ONE VIEW PORTABLE CLINICAL HISTORY: Nasogastric tube placement. COMPARISON STUDY: Chest radiograph June 22, 2016 10:22 AM FINDINGS: There is no pneumothorax or pleural effusion. Minimal bibasilar opacities are present. The tip of the nasogastric tube is below the lower aspect of this image but at least within the proximal stomach. There is no evidence of pulmonary edema. IMPRESSION: 1. Tip of nasogastric tube below the lower aspect of this image but at least within the proximal stomach. A KUB could be obtained to visualize the nasogastric tube tip. 2. Mild bibasilar opacities. Electronically signed by: Justino Arndt M.D. 06/22/2016 4:28 PM Dictated Date/Time: 06/22/2016 4:26 PM
[2016-06-22 18:42] LABS: URINE APPEARANCE TURBID (CLEAR); URINE COLOR DK YELLOW; URINE EPITHELIAL CELL AUTO >30 /lpf (0-5); URINE NITRITE NEG (NEG); URINE SPECIFIC GRAVITY 1.038 (1.000-1.030); UROBILINOGEN NEG (NEG); ZZURINE CULT IF INDIC CATH YES
[2016-06-22 18:53] LABS: MANUAL MICROSCOPIC REQUIRED? NO; REVIEW REQ? YES; URINE BILIRUBIN NEG (NEG)
[2016-06-22] MEDS: INSULIN GLARGINE SOLOSTAR 100 UNITS/ML 3 ML PEN SC SCH (21:01)
[2016-06-23] MEDS: MoRPHine SULFATE 4 MG/ML 1 ML CARP\\VIAL IV PRN ×3 (00:04→10:41)
[2016-06-23] MEDS: INSULIN ASPART 100 UNITS/ML 3 ML PEN SC SCH ×5 (00:11→21:58)
[2016-06-23] MEDS: D5W AND 1/2NSS + 20MEQ KCL 1,000 ML IV SCH ×3 (03:07→23:57)
[2016-06-23] MEDS: PIPERACILL/TAZOBAC IV 4.5 GM in DEXTROSE 5% 100ML 100 ML IV SCH ×3 (03:07→19:30)
[2016-06-23 06:37] LABS: MEAN CELL VOLUME 87.4 fL (80-100); MEAN CORPUSCULAR HEMOGLOBIN 29.6 pg (25-34); MEAN CORPUSCULAR HGB CONC 33.8 g/dl (32-36); PLATELET COUNT 224 K/uL (130-400); RED BLOOD COUNT 3.89 M/uL (4.2-5.4); WHITE BLOOD COUNT 8.38 K/uL (4.8-10.8)
[2016-06-23 07:06] LABS: BUN/CREATININE RATIO 11.1 (10-20); CALCIUM 7.3 mg/dl (8.5-10.1); CREATININE 0.47 mg/dl (0.60-1.20); POTASSIUM 3.6 mmol/L (3.5-5.1)
[2016-06-23 07:38] VITALS: BP 123/84; PULSE 94; TEMP 37; O2SAT 96
[2016-06-23] MEDS: CHOLECALCIFEROL 1000 INTER.UNIT TAB PO SCH (08:50)
[2016-06-23] MEDS: ENOXAPARIN 40 MG/0.4 ML SYR SQ SCH (08:51)
[2016-06-23] MEDS: LEVOTHYROXINE SODIUM IV SCH (08:53)
[2016-06-23] MEDS: PANTOprazole INJ 40 MG in SYRINGE 0 ML IV SCH (10:41)
--- NOTE | 2016-06-23 12:49 | Surgery Progress Note ---
Surgery Progress Note Date of Service Jun 23, 2016. Subjective Post OP Day: 5 + feeling well Dr. Veronica asked to see this pt, S/P exp lap, small bowel resection, for perforated bowel, incarcerated hernia, pt is doing fine, passed gas and BM, pt denies n/V, no fever, Objective Vital Signs: Date Time Temp Pulse Resp B/P Pulse Ox O2 Delivery O2 Flow Rate FiO2 06/23/16 07:38 37.0 94 20 123/84 96 Nasal Cannula 2.0 06/23/16 07:20 Room Air 06/23/16 00:01 Nasal Cannula 2.0 06/22/16 23:31 37.2 129 16 157/91 93 Room Air 06/22/16 21:07 122 166/109 06/22/16 16:09 37.8 107 16 137/80 91 Room Air 06/22/16 15:40 37.6 120 06/22/16 15:30 93 Room Air 06/22/16 15:03 38.2 127 16 159/91 93 Room Air General Appearance: WD/WN Head: normocephalic Neck: supple Respiratory/Chest: chest non-tender, lungs clear Cardiovascular: regular rate, rhythm, no edema Abdomen: normal bowel sounds, non tender Incision(s): clean, dry Extremities: normal range of motion, non-tender Laboratory Results: Results Past 24 Hours Test 06/22/16 18:07 06/22/16 18:20 06/22/16 23:59 06/23/16 05:52 Range/Units Bedside Glucose 181 190 170 70-90 mg/dl Urine Color DK YELLOW Urine Appearance TURBID CLEAR Urine pH 5.0 4.5-7.5 Urine Specific [place] 1.038 1.000-1.030 Urine Protein 1+ NEG Urine Glucose (UA) TRACE NEG Urine Ketones TRACE NEG Urine Occult Blood 2+ NEG Urine Nitrite NEG NEG Urine Bilirubin NEG NEG Urine Urobilinogen NEG NEG Urine Leukocyte Esterase NEG NEG Urine WBC (Auto) 5-10 0-5 /hpf Urine RBC (Auto) 0-4 0-4 /hpf Urine Hyaline Casts (Auto) 5-10 0-5 /lpf Urine Epithelial Cells (Auto) >30 0-5 /lpf Urine Bacteria (Auto) NEG NEG Urine Renal Epithelial Cells 0-5 /lpf Urine Crystals AMORPHOUS SEDIMENT NONE PRSENT Urine Yeast (Auto) NONE PRSENT Test 06/23/16 06:20 06/23/16 12:02 Range/Units White Blood Count 8.38 4.8-10.8 K/uL Red Blood Count 3.89 4.2-5.4 M/uL Hemoglobin 11.5 12.0-16.0 g/dL Hematocrit 34.0 37-47 % Mean Corpuscular Volume 87.4 80-100 fL Mean Corpuscular Hemoglobin 29.6 25-34 pg Mean Corpuscular Hemoglobin Concent 33.8 32-36 g/dl RDW Standard Deviation 40.8 36.4-46.3 fL RDW Coefficient of Variation 12.6 11.5-14.5 % Platelet Count 224 130-400 K/uL Mean Platelet Volume 10.0 7.4-10.4 fL Sodium Level 135 136-145 mmol/L Potassium Level 3.6 3.5-5.1 mmol/L Chloride Level 99 98-107 mmol/L Carbon Dioxide Level 27 21-32 mmol/L Anion Gap 9.0 3-11 mmol/L Blood Urea Nitrogen 5 7-18 mg/dl Creatinine 0.47 0.60-1.20 mg/dl Est Creatinine Clear Calc Drug Dose 160.6 ml/min Estimated GFR () 120.1 Estimated GFR (Non- 103.7 BUN/Creatinine Ratio 11.1 10-20 Random Glucose 209 70-99 mg/dl Calcium Level 7.3 8.5-10.1 mg/dl Bedside Glucose 168 70-90 mg/dl Microbiology Results 06/22/16 Blood Culture, Received Pending 06/22/16 Blood Culture, Received Pending 06/22/16 Urine Culture - Preliminary, Resulted NO GROWTH - LESS THAN 1,000 COLONIES/... Assessment & Plan IMP S/P exp lap bowel resection, Plan: D/C NGT, fry, clear diet, october D/C GERMAIN tomorrow, Will f/u clear liquids
[2016-06-23] MEDS ORDERED: NURSING VERBAL MED ORDER ONE (14:15)
--- NOTE | 2016-06-23 14:42 | Pharmacy Progress Note ---
Glycemic Control: Progress Nt Date of Service Jun 23, 2016. Scope Glycemic Pharmacist consulted by Dr Alcaraz on 06/19/16 for glycemic control and to write orders per [facility] inpatient glycemic control protocol. Objective Accuchecks BSG (last 24hrs): Test 06/22/16 18:07 06/22/16 23:59 06/23/16 05:52 06/23/16 06:20 Bedside Glucose 181 mg/dl (70-90) 190 mg/dl (70-90) 170 mg/dl (70-90) Random Glucose 209 mg/dl (70-99) Test 06/23/16 12:02 Bedside Glucose 168 mg/dl (70-90) Laboratory Data (last 24hrs) Test 06/23/16 06:20 Anion Gap 9.0 mmol/L BUN/Creatinine Ratio 11.1 Blood Urea Nitrogen 5 mg/dl Creatinine 0.47 mg/dl Potassium Level 3.6 mmol/L Sodium Level 135 mmol/L White Blood Count 8.38 K/uL HbA1c: Test 06/20/16 06:56 Hemoglobin A1c 7.3 % (4.5-5.6) H Recent Pertinent Medications Outpatient Anti-diabetic Regimen: * Metformin ER 500 mg bid, Glyburide 5 mg bid * A1c = 7.3 % 06/20/16 The patient is currently receiving: * Basal insulin: Lantus 15 units every hs (received 7 units yesterday evening) * Correctional Insulin: Novolog Correction per scale q6h Goal Range: Low 120 mg/dL - High 140 mg/dL Correction Factor: 20 mg/dL/unit * Prandial insulin: Per carb ratio of 1 unit per 7 grams CHO consumed * Oral Agents: none Risk Factors for Insulin Resistance: * Infection: on Zosyn * IVF: D5 1/2NS+KCl @100 ml/hr, Zosyn mixed in D5W * Recent Surgery: POD#5 * Diet: npo, advancing to clear liquid Assessment & Plan ASSESSMENT: * ADA & AACE recommend a goal blood sugar range 140-180 mg/dl for the majority of critically ill & non-critically ill patients. However, more stringent targets may be selected in individual cases. * Patient received 15 units of insulin on 06/21, 17 units on 06/22. BSG's range from 168-209 over past 24 hr. FBS a bit high after receiving Lantus 7 units yesterday. Will change to Lantus 10 units and reassess in am. PLAN FOR INPATIENT GLYCEMIC CONTROL: * Changing Lantus to 10 units SQ hs, give 1/2 dose (5 units) if BSG is less than 100 * Continuing correction factor 20 mg/dl/unit * Continuing carb ratio 1 unit per 7 grams CHO consumed * Continuing goal range Low 120 mg/dL - High 140 mg/dL * Please note that the plan above was derived based on current level of insulin resistance and hospital stress. These recommendations are appropriate for inpatient admission only. Plan of care upon discharge will need to be reassessed to avoid potential outpatient hypo/hyperglycemia. Thank you.
[2016-06-23 15:20] VITALS: BP 111/73; PULSE 116; TEMP 36.5; O2SAT 95
[2016-06-23] MEDS: OXYCODONE/ACETAMINOPHEN 5-325 TAB PO PRN (17:18)
--- NOTE | 2016-06-23 17:55 | Family Medicine Progress Note ---
Progress Note Date of Service Jun 23, 2016. Subjective Pt evaluation today including: conversation w/ patient, conversation w/ family , physical exam, chart review, lab review, review of studies, review of inpatient medication list Pain: moderate pain at adbdominal incision PO Intake: NPO, Advancing to Clear liquids Voiding: fry catheter in place no acute events overnight, reports productive cough, moderate pain at abdominal incision, NG tube to be removed today per Surgery. +flatus, + BM's Constitutional: No chills, No fever Respiratory: + cough (productive), No shortness of breath Cardiovascular: No chest pain, No palpitations Abdomen: No nausea, No pain, No vomiting Skin: No itch, No rash Medications Current Inpatient Medications Medications (Trade) Dose Ordered Sig/Devang Route Start Time Stop Time Status Last Admin Dose Admin Ondansetron HCl (Zofran Inj) 4 mg Q6H PRN IV 06/18/16 19:30 07/18/16 19:29 Morphine Sulfate (MoRPHine SULFATE INJ) 4 mg Q4H PRN IV 06/18/16 19:30 07/02/16 19:29 06/23/16 10:41 4 MG Morphine Sulfate 2 mg 2 mg Q4H PRN IV 06/18/16 19:30 07/02/16 19:29 06/20/16 11:16 2 MG Acetaminophen 650 mg/Empty Bag 65 ml @ 260 mls/hr Q6H PRN IV 06/18/16 19:30 07/18/16 19:29 06/19/16 11:13 260 MLS/HR Levothyroxine Sodium/Syringe (Synthroid Inj/ Syringe) 3 ml @ 1.5 mls/min DAILY@09 IV 06/19/16 09:00 07/19/16 08:59 06/23/16 08:53 1.5 MLS/MIN Hydralazine HCl (HydrALAZINE INJ) 10 mg Q4H PRN IV 06/18/16 19:30 07/18/16 19:29 06/22/16 21:11 10 MG Metoprolol Tartrate (Lopressor Iv) 5 mg Q4 PRN IV 06/18/16 20:00 07/18/16 19:59 06/20/16 04:00 5 MG Glucose (Glucose 40% Gel) 15-30 GRAMS 15 GRAMS... UD PRN PO 06/18/16 20:30 07/18/16 20:29 Glucose (Glucose Chew Tab) 4-8 Tablets 4 Tabl... UD PRN PO 06/18/16 20:30 07/18/16 20:29 Dextrose (Dextrose 50% 50ML Syringe) 25-50ML OF 50% DW IV FOR... UD PRN IV 06/18/16 20:30 07/18/16 20:29 06/21/16 05:53 25 ML Glucagon (Glucagon Inj) 1 mg UD PRN SQ 06/18/16 20:30 07/18/16 20:29 Enoxaparin Sodium (Lovenox Inj) 40 mg DAILY SQ 06/19/16 09:00 07/19/16 08:59 06/23/16 08:51 40 MG Oxycodone/ Acetaminophen (Percocet 5-325MG Tab) 1 tab Q4H PRN PO 06/18/16 22:30 07/02/16 22:29 Oxycodone/ Acetaminophen (Percocet 5-325MG Tab) 2 tab Q4H PRN PO 06/18/16 22:30 07/02/16 22:29 Piperacillin Sod/ Tazobactam Sod (Consult) 1 ea UD PRN N/A 06/19/16 03:00 07/19/16 02:59 Miscellaneous Information 1 ea 1 ea UD PRN N/A 06/19/16 10:03 07/19/16 10:02 Pantoprazole Sodium 40 mg/ Syringe 10 ml @ 5 mls/min DAILY@11 IV 06/20/16 11:00 07/20/16 10:59 06/23/16 10:41 5 MLS/MIN Piperacillin Sod/ Tazobactam Sod/ Dextrose (Zosyn Iv/D5 100ml) 120 ml @ 28.7 mls/hr Q8H IV 06/20/16 03:00 06/24/16 23:59 06/23/16 10:51 28.7 MLS/HR Morphine Sulfate 2 mg 2 mg Q4H PRN IV 06/20/16 09:45 07/04/16 09:44 Potassium Chloride/Dextrose/ Sod Cl (D5W And 1/2nss + 20meq KCl) 1,000 ml @ 100 mls/hr Q10H IV 06/21/16 16:00 06/24/16 15:29 06/23/16 13:18 100 MLS/HR Cholecalciferol (Vitamin D Tab) 1,000 inter.unit QAM PO 06/23/16 09:00 07/23/16 08:59 Insulin Aspart (novoLOG ASPART) SLIDING SCALE PARAMETER ACHS SC 06/23/16 17:15 07/23/16 17:14 Insulin Glargine (Lantus Solostar Pen) 10 unit HS SC 06/23/16 21:00 07/23/16 20:59 Objective Vital Signs Date Time Temp Pulse Resp B/P Pulse Ox O2 Delivery O2 Flow Rate FiO2 06/23/16 15:20 36.5 116 18 111/73 95 Room Air 06/23/16 07:38 37.0 94 20 123/84 96 Nasal Cannula 2.0 06/23/16 07:20 Room Air 06/23/16 00:01 Nasal Cannula 2.0 06/22/16 23:31 37.2 129 16 157/91 93 Room Air 06/22/16 21:07 122 166/109 Physical Exam General Appearance: WD/WN, no apparent distress Eyes: normal inspection, PERRL, EOMI Neck: supple, trachea midline Respiratory/Chest: chest non-tender, lungs clear, normal breath sounds Cardiovascular: regular rate, rhythm, no murmur Abdomen: normal bowel sounds, + tenderness (at incision), + pertinent finding ( bandages in place, clean dry) Extremities: no pedal edema, no calf tenderness Neurologic/Psychiatric: alert, normal mood/affect Skin: normal color, warm/dry Laboratory Results Results Past 24 Hours Test 06/22/16 18:07 06/22/16 18:20 06/22/16 23:59 06/23/16 05:52 Range/Units Bedside Glucose 181 190 170 70-90 mg/dl Urine Color DK YELLOW Urine Appearance TURBID CLEAR Urine pH 5.0 4.5-7.5 Urine Specific [place] 1.038 1.000-1.030 Urine Protein 1+ NEG Urine Glucose (UA) TRACE NEG Urine Ketones TRACE NEG Urine Occult Blood 2+ NEG Urine Nitrite NEG NEG Urine Bilirubin NEG NEG Urine Urobilinogen NEG NEG Urine Leukocyte Esterase NEG NEG Urine WBC (Auto) 5-10 0-5 /hpf Urine RBC (Auto) 0-4 0-4 /hpf Urine Hyaline Casts (Auto) 5-10 0-5 /lpf Urine Epithelial Cells (Auto) >30 0-5 /lpf Urine Bacteria (Auto) NEG NEG Urine Renal Epithelial Cells 0-5 /lpf Urine Crystals AMORPHOUS SEDIMENT NONE PRSENT Urine Yeast (Auto) NONE PRSENT Test 06/23/16 06:20 06/23/16 12:02 06/23/16 16:52 Range/Units White Blood Count 8.38 4.8-10.8 K/uL Red Blood Count 3.89 4.2-5.4 M/uL Hemoglobin 11.5 12.0-16.0 g/dL Hematocrit 34.0 37-47 % Mean Corpuscular Volume 87.4 80-100 fL Mean Corpuscular Hemoglobin 29.6 25-34 pg Mean Corpuscular Hemoglobin Concent 33.8 32-36 g/dl RDW Standard Deviation 40.8 36.4-46.3 fL RDW Coefficient of Variation 12.6 11.5-14.5 % Platelet Count 224 130-400 K/uL Mean Platelet Volume 10.0 7.4-10.4 fL Sodium Level 135 136-145 mmol/L Potassium Level 3.6 3.5-5.1 mmol/L Chloride Level 99 98-107 mmol/L Carbon Dioxide Level 27 21-32 mmol/L Anion Gap 9.0 3-11 mmol/L Blood Urea Nitrogen 5 7-18 mg/dl Creatinine 0.47 0.60-1.20 mg/dl Est Creatinine Clear Calc Drug Dose 160.6 ml/min Estimated GFR () 120.1 Estimated GFR (Non- 103.7 BUN/Creatinine Ratio 11.1 10-20 Random Glucose 209 70-99 mg/dl Calcium Level 7.3 8.5-10.1 mg/dl Bedside Glucose 168 195 70-90 mg/dl Microbiology Results 06/22/16 Blood Culture, Received Pending 06/22/16 Blood Culture, Received Pending 06/22/16 Urine Culture - Preliminary, Resulted NO GROWTH - LESS THAN 1,000 COLONIES/... Assessment and Plan 65 yo F p/w incarcerated umbilical hernia complicated by perforation s/p exlap bowel resection Hernia incarceration and perforation, s/p ex lap and bowel resection POD 5 - NG tube d/c'd per Surgery - Pain control with oxycodone - day 5/ for zosyn - Continue IV fluids - Fry catheter d/c'd today -Possible GERMAIN drain d/c tmr per surgery Tachycardia: -EKG showed Sinus Tachycardia with PAC's Vit D Deficiency - Continue vit D supplementation HTN -controlled -BP 111/73 <--123/84 - home meds remain held DM2 - ISS, Continue Lantus 15 units + 3 units Novolog Hypothyroid - Continue Synthroid IV DVT - Continue Lovenox Diet -Advanced to clears per Surgery -Advance diet as tolerated Continued [facility] stay due to: multiple IV medications needed Discharge planning: uncertain Resident Tracking Resident Involvement: Resident Care Provided Care Provided: Adult Hospital Medicine Reviewed: Pt Seen/Exam by Me History no concerns had bowel movements overnight Constitutional: denies: fever Respiratory: negative: short of breath Cardiovascular: denies chest pain General Appearance: no apparent distress Respiratory: lungs clear, no respiratory distress Cardiovascular: regular rate, rhythm Gastrointestinal: normal bowel sounds, non tender, soft Neurologic/Psychiatric: alert, oriented x 3 Skin Characteristics: warm/dry Assessment/Plan I have reviewed the medical record and performed a history and physical examination of this patient today. I have discussed the case with Dr. Ferreira . The above note reflects my findings, conclusions, and recommendations.
[2016-06-23] MEDS ORDERED: INSULIN GLARGINE SOLOSTAR 100 UNITS/ML 3 ML PEN SC SCH (21:00)
[2016-06-23 23:16] VITALS: BP 129/83; PULSE 87; TEMP 36.6; O2SAT 97
[2016-06-24] MEDS: PIPERACILL/TAZOBAC IV 4.5 GM in DEXTROSE 5% 100ML 100 ML IV SCH ×3 (03:20→18:34)
[2016-06-24] MEDS: OXYCODONE/ACETAMINOPHEN 5-325 TAB PO PRN ×3 (04:44→22:03)
[2016-06-24 07:13] VITALS: BP 117/78; PULSE 87; TEMP 36.6; O2SAT 94
[2016-06-24] MEDS: ENOXAPARIN 40 MG/0.4 ML SYR SQ SCH (09:17)
[2016-06-24] MEDS: D5W AND 1/2NSS + 20MEQ KCL 1,000 ML IV SCH (09:18)
[2016-06-24] MEDS: CHOLECALCIFEROL 1000 INTER.UNIT TAB PO SCH (09:20)
[2016-06-24] MEDS ORDERED: NURSING VERBAL MED ORDER ONE (09:30)
[2016-06-24] MEDS: INSULIN ASPART 100 UNITS/ML 3 ML PEN SC SCH ×4 (09:37→21:00)
--- NOTE | 2016-06-24 11:14 | Pharmacy Progress Note ---
Glycemic Control: Progress Nt Date of Service Jun 24, 2016. Scope Glycemic Pharmacist consulted by Dr Alcaraz on 06/19/16 for glycemic control and to write orders per [facility] inpatient glycemic control protocol. Objective Accuchecks BSG (last 24hrs): Test 06/23/16 12:02 06/23/16 16:52 06/23/16 20:58 06/24/16 08:16 Bedside Glucose 168 mg/dl (70-90) 195 mg/dl (70-90) 154 mg/dl (70-90) 195 mg/dl (70-90) HbA1c: Test 06/20/16 06:56 Hemoglobin A1c 7.3 % (4.5-5.6) H Recent Pertinent Medications Outpatient Anti-diabetic Regimen: * Metformin ER 500mg PO BIDM * Glyburide 5mg PO BIDM The patient is currently receiving: * Basal insulin: Lantus 10 units at bedtime (Administer 1/2 dose if BSG < 120mg/dl) * Correctional Insulin: Novolog Correction per scale ACHS Goal Range: Low 120 mg/dL - High 140 mg/dL Correction Factor: 20 mg/dL/unit * Prandial insulin: Per carb ratio of 1 unit per 7 grams CHO consumed Risk Factors for Insulin Resistance: * Infection * Recent Surgery * Fluids containing dextrose * Diet Assessment & Plan ASSESSMENT: * 65yo T2DM female with adequate outpatient control per recent A1c of 7.3% on 06/20/16 * Pt is maintained on oral anti-diabetic agents as an outpatient. These were held on admission and pt initiated on conservative weight based SQ basal bolus bolus insulin regimen for an insulin naive patient * Pt has received 25 units of insulin over the past 24hrs * A half dose of Lantus was given mistakenly on 06/22/16 which caused Fasting BSG to be elevated 06/23/16 * Fasting BSG this AM 195 mg/dL after 10 units of Lantus last night * I would prefer to increase 20% tonight for better glycemic control * Continue weight-based Novolog * As diet advances, insulin regimen will need reassessed; especially when dextrose is removed from maintenance fluids * ADA & AACE recommend a goal blood sugar range 140-180 mg/dl for the majority of critically ill & non-critically ill patients. However, more stringent targets may be selected in individual cases. Will utilize more stringent target of 120-140mg/dl for a well controlled diabetic and to facilitate healing post- operatively. PLAN FOR INPATIENT GLYCEMIC CONTROL: * Increase Basal insulin with LANTUS 12 units SQ HS * Administer 1/2 dose if BSG < 120 mg/dl * Correctional Insulin with NOVOLOG per scale ACHS or Q6hrs while NPO * Goal Range: Low 120 mg/dL - High 140 mg/dL * Correction Factor: 20 mg/dL/unit * Nutritional / Prandial insulin per carb ratio of 1 unit per 7 grams CHO consumed * Please note that the plan above was derived based on current level of insulin resistance and hospital stress. These recommendations are appropriate for inpatient admission only. Plan of care upon discharge will need to be reassessed to avoid potential outpatient hypo/hyperglycemia. Thank you.
--- NOTE | 2016-06-24 11:59 | Surgery Progress Note ---
Surgery Progress Note Date of Service Jun 24, 2016. Subjective Sitting in chair. Bowels functioning. No nausea. Tolerating clears. Objective Vital Signs: Date Time Temp Pulse Resp B/P Pulse Ox O2 Delivery O2 Flow Rate FiO2 06/24/16 08:25 Room Air 06/24/16 07:13 36.6 87 18 117/78 94 Room Air 06/23/16 23:16 36.6 87 16 129/83 97 Room Air 06/23/16 19:35 Room Air 06/23/16 16:45 Room Air 06/23/16 15:20 36.5 116 18 111/73 95 Room Air Physical Exam: GERMAIN drainage (95 cc serosanguinous) General Appearance: no apparent distress Abdomen: normal bowel sounds, non tender, non distended, soft Incision(s): clean, dry, intact Laboratory Results: Results Past 24 Hours Test 06/23/16 12:02 06/23/16 16:52 06/23/16 20:58 06/24/16 08:16 Range/Units Bedside Glucose 168 195 154 195 70-90 mg/dl Microbiology Results 06/24/16 C.difficile Toxin B Gene (PCR) - Final, Complete No C. difficile toxin B gene detected Assessment & Plan s/p repair of incarcerated hernia with small bowel perforation through umbilicus (small bowel resection, primary repair of hernia). Bowels functioning. Will advance to full liquids and then advance as tolerated to regular food. Will need to be discharged with GERMAIN drain in place (output too high for removal). Have her f/u in office next week [phone] for staple and drain removal. Should complete 10 day course of antibiotics.
[2016-06-24] MEDS: PANTOprazole SOD 40 MG TAB PO SCH (12:16)
[2016-06-24] MEDS: LEVOTHYROXINE SODIUM IV SCH (12:16)
[2016-06-24 15:54] VITALS: BP 134/85; PULSE 92; TEMP 36.7; O2SAT 97
--- NOTE | 2016-06-24 16:24 | Family Medicine Progress Note ---
Progress Note Date of Service Jun 24, 2016. Subjective Pt evaluation today including: conversation w/ patient, conversation w/ family , physical exam, chart review, lab review, review of studies, review of inpatient medication list Pain: 4/10 pain at incision Pt complains of pain at incision (4/10), 2 episodes of soft stool. NIKOLAY drain still in place. denies CP, SOB, N/V Constitutional: No chills, No fever Respiratory: No cough, No shortness of breath, No sputum Cardiovascular: No chest pain, No palpitations Abdomen: + pain (at incision), No diarrhea, No nausea, No vomiting Female : No dysuria, No urinary frequency Objective Physical Exam General Appearance: WD/WN, no apparent distress Eyes: normal inspection, PERRL, EOMI Neck: supple Respiratory/Chest: lungs clear, normal breath sounds, no respiratory distress Cardiovascular: regular rate, rhythm, no murmur Abdomen: normal bowel sounds, soft, + tenderness (at inciison), + pertinent finding (wound: mildly erythematous, clean, dry, intact, no drainage/bleeding) Extremities: non-tender, + pedal edema (bilateral) Neurologic/Psychiatric: alert, normal mood/affect Skin: normal color, warm/dry Laboratory Results Results Past 24 Hours Test 06/23/16 16:52 06/23/16 20:58 06/24/16 08:16 06/24/16 11:59 Range/Units Bedside Glucose 195 154 195 169 70-90 mg/dl Microbiology Results 06/24/16 C.difficile Toxin B Gene (PCR) - Final, Complete No C. difficile toxin B gene detected Assessment and Plan 65 yo F p/w incarcerated umbilical hernia complicated by perforation s/p exlap bowel resection Hernia incarceration and perforation, s/p ex lap and bowel resection POD 6 - Pain control with oxycodone - day 6/7 for zosyn - Continue IV fluids -NIKOLAY drain maintained due to high output per Sx LE Edema -likely due to fluid overload -stopped IV Fluids Tachycardia: -improved -Previous EKG showed Sinus Tachycardia with PAC's Vit D Deficiency - Continue vit D supplementation HTN -controlled -BP 134/85 <--117/78 - home meds remain held DM2 - ISS, Continue Lantus 15 units + 3 units Novolog Hypothyroid - Continue Synthroid IV DVT - Continue Lovenox Diet -Advanced to full liquids per Surgery -Management per surgery Continued [facility] stay due to: multiple IV medications needed Discharge planning: home Resident Tracking Resident Involvement: Resident Care Provided Care Provided: Adult Hospital Medicine Reviewed: Pt Seen/Exam by Me History doing well. diet advanced further Constitutional: denies: fever Respiratory: negative: short of breath Cardiovascular: denies chest pain Gastrointestinal/Abdominal: negative: abdominal pain General Appearance: no apparent distress Respiratory: lungs clear, no respiratory distress Cardiovascular: regular rate, rhythm Gastrointestinal: normal bowel sounds, soft, tenderness (incisional), other ( nikolay drain +) Neurologic/Psychiatric: alert, oriented x 3 Assessment/Plan I have reviewed the medical record and performed a history and physical examination of this patient today. I have discussed the case with Dr. Ferreira . The above note reflects my findings, conclusions, and recommendations.
[2016-06-24] MEDS ORDERED: INSULIN GLARGINE SOLOSTAR 100 UNITS/ML 3 ML PEN SC SCH (21:00)
[2016-06-24 22:36] VITALS: BP 132/84; PULSE 91; TEMP 36.6; O2SAT 95
[2016-06-25] MEDS ORDERED: LEVOTHYROXINE 112 MCG TAB PO SCH (06:00)
[2016-06-25] MEDS: OXYCODONE/ACETAMINOPHEN 5-325 TAB PO PRN ×2 (06:03→16:12)
[2016-06-25 07:45] VITALS: BP 125/84; PULSE 100; TEMP 36.6; O2SAT 93
[2016-06-25 08:06] LABS: HEMATOCRIT 33.7 % (37-47); MEAN CELL VOLUME 87.8 fL (80-100); MEAN CORPUSCULAR HEMOGLOBIN 30.5 pg (25-34); MEAN CORPUSCULAR HGB CONC 34.7 g/dl (32-36); PLATELET COUNT 232 K/uL (130-400); RED BLOOD COUNT 3.84 M/uL (4.2-5.4); WHITE BLOOD COUNT 5.33 K/uL (4.8-10.8)
[2016-06-25 08:26] LABS: BUN/CREATININE RATIO 7.2 (10-20); CREATININE 0.36 mg/dl (0.60-1.20); POTASSIUM 3.4 mmol/L (3.5-5.1)
[2016-06-25] MEDS: ENOXAPARIN 40 MG/0.4 ML SYR SQ SCH (09:50)
[2016-06-25] MEDS: PANTOprazole SOD 40 MG TAB PO SCH (09:51)
[2016-06-25] MEDS: CHOLECALCIFEROL 1000 INTER.UNIT TAB PO SCH (09:51)
[2016-06-25] MEDS: INSULIN ASPART 100 UNITS/ML 3 ML PEN SC SCH ×2 (09:54→13:41)
[2016-06-25] MEDS ORDERED: OXYC-57 PO (13:13)
[2016-06-25] MEDS ORDERED: AMOX875T PO (13:13)
--- NOTE | 2016-06-25 13:17 | Discharge Instructions ---
Discharge Instructions Admission Reason for Admission: Perforated Viscus Discharge Discharge Diagnosis / Problem: Bowel Perforation Discharge Goals Goal(s): Decrease discomfort, Improve disease control Activity Recommendations Activity Limitations: resume your previous activity Shower/Bathe: no limitations (Pat dry the incision. Use binder for 1 month) Follow up with Dr. Veronica next week - Please call to schedule appointment - Please care for your drain as instructed to you. . Current Hospital Diet Patient's current hospital diet: Diabetes Type 2 Diet, AHA Diet (Heart Healthy) Discharge Diet Recommended Diet: Regular Diet Procedures Procedures Performed: Exploratory Laparotomy, Small bowel resection, Incisional hernia repair Pending Studies Studies pending at discharge: no Laboratory Results Hemoglobin A1c Test 06/20/16 06:56 Range/Units Estimated Average Glucose 163 mg/dl Hemoglobin A1c 7.3 H 4.5-5.6 % Medical Emergencies . Who to Call and When: Medical Emergencies: If at any time you feel your situation is an emergency, please call 911 immediately. . Non-Emergent Contact Non-Emergency issues call your: Surgeon ([phone]) Call Non-Emergent contact if: temperature is above 100.5, your pain is worsening, wound has increased drainage, wound has increased redness, wound has increased pain . . "Provider Documentation" section prepared by Maria Luz Roberson. VTE Core Measure Inpt VTE Proph given/why not?: SCD's
[2016-06-25 14:18] VITALS: BP 125/84; PULSE 100; TEMP 36.6; O2SAT 93
--- NOTE | 2016-06-26 00:08 | Discharge Summary ---
Discharge Summary Admission Date: Jun 18, 2016 at 19:24 Discharge Date: Jun 25, 2016 Discharge Disposition: Home Principal Diagnosis: Incarcerted Hernia, Perforrated viscus Problems/Secondary Diagnoses: nausea/vomiting Procedures: Exploratory laparotomy, partial small bowel resection with primary anastomosis and primary repair of hernia and resection of umbilicus (Lm Ferreira MD) Medication Reconciliation New Medications: Amoxicillin & Pot Clavulanate (Augmentin 875-125 mg) 1 Tab Tab 875 MG PO BID, #14 TAB Oxycodone/Acetaminophen 5MG/325MG (Percocet 5MG/325MG) Tab 1 TAB PO Q4H PRN for moderate pain (pain scale 4-6) for 10 Days, #20 TAB PAIN Continued Medications: B-Complex Vitamins (Vitamin B Complex) 1 Tab Tab 1 TAB PO DAILY Cetirizine (Zyrtec) 10 Mg Tab 10 MG PO DAILY PRN for Allergy Symptoms, TAB Diltiazem Hcl Extended Release (Diltiazem Hcl) 240 Mg Cap 240 MG PO QAM Gcbjbsurdbq-Zayfluogjyv-Jlq C- (Glucosamine Chondroitin) 1 Tab Tab 1 TAB PO BID Glyburide (Diabeta) 5 Mg Tab 5 MG PO BID TAKE ONE TABLET WITH BREAKFAST AND WITH LUNCH DAILY Levothyroxine Sodium (Synthroid) 112 Mcg Tab 112 MCG PO DAILY, TAB Losartan Potassium (Cozaar) 100 Mg Tab 100 MG PO QPM TAKE THIS MEDICATION DAILY WITH EVENING MEAL Metformin Hcl Er (Glucophage Er) 500 Mg Tab 1000 MG PO QAM, TAB TAKE WITH BREAKFAST Metformin Hcl Er (Glucophage Er) 500 Mg Tab 500 MG PO QPM, TAB TAKE WITH EVENING MEAL [place]-3 Fatty Acids ([place] 3) 1 Cap Cap 1 CAP PO DAILY [Juice Plus Fruit] () 2 CAP PO QPM TAKE WITH EVENIING MEAL [Juice Plus Vegi] () 2 CAP PO QAM Discharge Exam pt reported mild pain at incision. denied n/v, Cp, SOB. passing gas, passing stool Review of Systems: Constitutional: No chills, No fever Respiratory: No shortness of breath Cardiovascular: No chest pain, No palpitations Abdomen: No constipation, No nausea, No vomiting Genitourinary - Female: No dysuria, No urinary urgency Physical Exam: General Appearance: no apparent distress, + obese Eyes: normal inspection, PERRL, EOMI Neck: supple, trachea midline Respiratory/Chest: lungs clear, normal breath sounds, no respiratory distress Cardiovascular: regular rate, rhythm, no murmur Abdomen / GI: normal bowel sounds, soft, + tenderness (mild tenderness to palpation near incision), + pertinent finding (GERMAIN drain in place, bandages in place over incision, clean dry) Extremities: no calf tenderness, + pedal edema (bilateral) Neurologic/Psychiatric: alert, normal mood/affect Skin: normal color, warm/dry (Lm Ferreira MD) Review of Systems: Constitutional: No fever Respiratory: No cough, No shortness of breath Cardiovascular: No chest pain Abdomen: No nausea, No pain Physical Exam: General Appearance: no apparent distress Respiratory/Chest: lungs clear, no respiratory distress Cardiovascular: regular rate, rhythm Abdomen / GI: normal bowel sounds, non tender, soft, + pertinent finding ( GERMAIN drain present) Neurologic/Psychiatric: alert, oriented x 3 Skin: warm/dry (Maria Luz Roberson M.D.) Hospital Course This is a 65 yo obese F w/ hx of DMII who presented 06/18/2016 to [facility] with hx of popping sound in abdomen with associated stool leakage from umbilicus. CT was consistent with SBO secondary to incarcerated hernia. This was further complicated by perforation. Pt was given IV hydration and IV Zosyn and morphine.Following evaluation by Surgery, Dr. Veronica, She was taken to OR for emergent surgery for Exploratory laparotomy, partial small bowel resection with primary anastomosisand primary repair of hernia and resection of umbilicus.Pt tolerated procedure well. Postoperatively, pt was placed on zosyn.. Pt was initially NPO with NG tube. . After experience post-operative flatus, and bowel movements she was gradually advanced to reg diet by 06/24/20. NG tube was removed. GERMAIN drain was left due to high output. Pt was discharged 06/25/16 after 7 days of zosyn therapy with outpatient f/u with Surgery, Dr. Veronica. Total Time Spent: Less than 30 minutes This includes examination of the patient, discharge planning, medication reconciliation, and communication with other providers. (Lm Ferreira MD) I have reviewed the medical record and performed a history and physical examination of this patient today. I have discussed the case with Dr. Ferreira. The above note reflects my findings, conclusions, and recommendations. Total Time Spent: Greater than 30 minutes (40) (Maria Luz Roberson M.D.) Discharge Instructions Please refer to the electronic Patient Visit Report (Discharge Instructions) for additional information. (Lm Ferreira MD)
== END 2016-06-25 16:33 | disposition home health service (06) | DRG 329 ==
LOC: ENRESERVTM → ENRESERVDT → C.EDB 17:03 → C.2T 19:24 → UNDOADMIN 22:32 → C.2T 22:32 → C.MSN 06-21 17:16
PROVIDERS: ADMIT Internal Medicine; ATTEND Family Medicine
PROC: 0DB80ZZ Excision of Small Intestine, Open Approach (ICD-10-PCS; principal; 2016-06-18 19:30)
PROC: 0WQF0ZZ Repair Abdominal Wall, Open Approach (ICD-10-PCS; 2016-06-18 19:30)
DX: K42.0 Umbilical hernia with obstruction, without gangrene (principal); K63.1 Perforation of intestine (nontraumatic); Z68.44 Body mass index [BMI] 60.0-69.9, adult; I10 Essential (primary) hypertension; E11.9 Type 2 diabetes mellitus without complications; E03.9 Hypothyroidism, unspecified; E87.6 Hypokalemia; E66.01 Morbid (severe) obesity due to excess calories; G89.29 Other chronic pain; M54.9 Dorsalgia, unspecified; K59.00 Constipation, unspecified; R00.0 Tachycardia, unspecified; K21.9 Gastro-esophageal reflux disease without esophagitis; E55.9 Vitamin D deficiency, unspecified; Z79.899 Other long term (current) drug therapy; Z80.9 Family history of malignant neoplasm, unspecified; Z83.3 Family history of diabetes mellitus; Z83.79 Family history of other diseases of the digestive system

== ENCOUNTER → 2016-07-03 | Outpatient (CLI) | payer OTHER, BC ==
[~2016-07-03] MED LIST changes: +AMOX875T PO; -B-CO1TAB29 PO; +B-COTAB18 PO; -DILT-115 PO; +DILT240C75 PO; +GLY/5 PO; -GLYB5TAB8 PO; +Juice Plus Fruit PO; +LEVO112T2 PO; +LOSA100T65 PO; -LOSA1TAB38 PO; -OXYC-106 PO; +OXYC-57 PO; -POTA-335 PO; -SPIR25TA PO; -SYN112 PO; +[UNRECOGNIZED DRUG - OTHER] PO; -juice plus PO
[2016-07-03 15:26] LABS: BASO % 0.6 %; BASO ABS # 0.05 K/uL (0-0.2); COMPLETE YES; EOS % 2.5 %; HEMATOCRIT 32.8 % (37-47); IG% 0.3 %; LYMPH % 27.2 %; LYMPH ABS # 2.44 K/uL (1.2-3.4); MEAN CELL VOLUME 87.5 fL (80-100); MEAN CORPUSCULAR HEMOGLOBIN 29.9 pg (25-34); MEAN CORPUSCULAR HGB CONC 34.1 g/dl (32-36); MEAN PLATELET VOLUME 9.7 fL (7.4-10.4); MONO % 6.9 %; NEUT % 62.5 %; PLATELET COUNT 394 K/uL (130-400); RED BLOOD COUNT 3.75 M/uL (4.2-5.4); WHITE BLOOD COUNT 8.96 K/uL (4.8-10.8)
[2016-07-03 15:41] LABS: BLOOD UREA NITROGEN 7 mg/dl (7-18); BUN/CREATININE RATIO 12.3 (10-20); CALCIUM 7.9 mg/dl (8.5-10.1); CARBON DIOXIDE 27 mmol/L (21-32); CHLORIDE 106 mmol/L (98-107); CREATININE 0.55 mg/dl (0.60-1.20); GLUCOSE 130 mg/dl (70-99); POTASSIUM 3.2 mmol/L (3.5-5.1); SODIUM 144 mmol/L (136-145)
== END | disposition home or self-care (01) ==
LOC: C.LAB1850 14:24
PROVIDERS: ATTEND Internal Medicine
DX: R60.9 Edema, unspecified (principal); Z11.59 Encounter for screening for other viral diseases

== ENCOUNTER → 2016-07-17 | Outpatient (CLI) | payer OTHER, BC ==
[~2016-07-17] MED LIST changes: -AMOX875T PO
[2016-07-17 11:45] LABS: HEMATOCRIT 37.6 % (37-47)
[2016-07-17 12:12] LABS: ESTIMATED AVERAGE GLUCOSE 143 mg/dl; HA1C FLAG Normal (Normal)
== END | disposition home or self-care (01) ==
LOC: C.LAB1850 10:16
PROVIDERS: ATTEND Internal Medicine
DX: E11.9 Type 2 diabetes mellitus without complications (principal); R60.9 Edema, unspecified

== ENCOUNTER → 2016-12-05 | Outpatient (CLI) | payer OTHER, BC ==
[2016-12-05 13:13] LABS: BASO % 0.6 %; BASO ABS # 0.07 K/uL (0-0.2); COMPLETE YES; EOS % 5.1 %; HEMATOCRIT 36.9 % (37-47); IG% 0.2 %; LYMPH % 29.7 %; LYMPH ABS # 3.43 K/uL (1.2-3.4); MEAN CELL VOLUME 88.9 fL (80-100); MEAN CORPUSCULAR HEMOGLOBIN 30.8 pg (25-34); MEAN CORPUSCULAR HGB CONC 34.7 g/dl (32-36); MEAN PLATELET VOLUME 10.5 fL (7.4-10.4); MONO % 6.2 %; NEUT % 58.2 %; PLATELET COUNT 291 K/uL (130-400); RED BLOOD COUNT 4.15 M/uL (4.2-5.4); WHITE BLOOD COUNT 11.54 K/uL (4.8-10.8)
[2016-12-05 13:22] LABS: ESTIMATED AVERAGE GLUCOSE 157 mg/dl; HA1C FLAG Normal (Normal)
[2016-12-05 13:47] LABS: ALT/SGPT 39 U/L (12-78); AST/SGOT 18 U/L (15-37); BLOOD UREA NITROGEN 23 mg/dl (7-18); BUN/CREATININE RATIO 29.6 (10-20); CARBON DIOXIDE 23 mmol/L (21-32); CHLORIDE 105 mmol/L (98-107); CHOLESTEROL 193 mg/dl (0-200); CREATININE 0.79 mg/dl (0.60-1.20); GLUCOSE 130 mg/dl (70-99); POTASSIUM 4.3 mmol/L (3.5-5.1); SODIUM 138 mmol/L (136-145); TRIGLYCERIDES 135 mg/dl (0-150); VERY LOW DENSITY LIPOPROT CALC 27 mg/dl
[2016-12-05 13:57] LABS: CHOLESTEROL/HDL RATIO 3.6; HDL CHOLESTEROL 53 mg/dl; LDL CHOLESTEROL CALCULATED 113 mg/dl
== END | disposition home or self-care (01) ==
LOC: C.LAB1850 11:42
PROVIDERS: ATTEND Physician Assistant
DX: I10 Essential (primary) hypertension (principal); E11.9 Type 2 diabetes mellitus without complications

== ENCOUNTER → 2017-03-09 | Outpatient (CLI) | payer OTHER, BC ==
[2017-03-10 05:52] LABS: ESTIMATED AVERAGE GLUCOSE 160 mg/dl; HA1C FLAG Normal (Normal)
== END | disposition home or self-care (01) ==
LOC: C.LAB1850 12:15
PROVIDERS: ATTEND Physician Assistant
DX: E11.9 Type 2 diabetes mellitus without complications (principal)

== ENCOUNTER → 2017-04-23 | Outpatient (CLI) | payer OTHER, BC ==
--- NOTE | 2017-04-23 14:54 | MAMMOGRAPHY REPORT ---
BILATERAL DIGITAL SCREENING MAMMOGRAM WITH CAD: 04/23/2017 CLINICAL HISTORY: Routine screening. Patient has no complaints. TECHNIQUE: Current study was also evaluated with a Computer Aided Detection (CAD) system. Bilateral CC and MLO views were obtained. COMPARISON: Comparison is made to exams dated: 04/17/2015 mammogram, 04/13/2014 mammogram, 04/12/2013 mammogram, 04/06/2012 mammogram, 04/01/2011 mammogram, and 04/22/2016 mammogram - [facility]. BREAST COMPOSITION: There are scattered areas of fibroglandular density in both breasts. FINDINGS: No suspicious masses, calcifications, or areas of architectural distortion are noted in ei ther breast. There has been no significant interval change compared to prior exams. Circumscribed ma ss with associated calcifications in the right upper outer quadrant is stable compared to multiple pr ior exams. Other scattered bilateral benign-appearing calcifications are stable. IMPRESSION: ACR BI-RADS CATEGORY 2: BENIGN There is no mammographic evidence of malignancy. A 1 year screening mammogram is recommended. The pa tient will receive written notification of the results. Approximately 10% of breast cancers are not detected with mammography. A negative mammographic report should not delay biopsy if a clinically suggestive mass is present. Alley Melo M.D. /:04/23/2017 12:24:04 Conservator Artifacts: Katie MCLEOD)(John), [facility] letter sent: Normal 1/2 BI-RADS Code: ACR BI-RADS Category 2: Benign
== END | disposition home or self-care (01) ==
LOC: C.MAMM 09:19
PROVIDERS: ATTEND Obstetrics & Gynecology
DX: Z12.31 Encounter for screening mammogram for malignant neoplasm of breast (principal)

== ENCOUNTER → 2017-10-09 | Outpatient (CLI) | payer OTHER, BC ==
[2017-10-09 12:52] LABS: HEMOGLOBIN A1C 7.3 % (4.5-5.6)
== END | disposition home or self-care (01) ==
LOC: C.LAB1850 09:52
PROVIDERS: ATTEND Physician Assistant
DX: E11.9 Type 2 diabetes mellitus without complications (principal)

== ENCOUNTER 2019-01-14 07:42 | Inpatient (IN) ==
--- NOTE | 2018-12-22 14:18 | PAT Medication Instructions ---
Medication Instructions Date of Service December 22, 2018 Home Medications cetirizine [Zyrtec] 10 mg PO UD PRN diltiazem HCl 240 mg PO QAM glucos sul 1QMj-bjj-iehhx-C-Mn [Glucosamine Chondroitin] 1 cap PO BID glyburide 5 mg PO BID levothyroxine [Synthroid] 112 mcg PO QAM losartan 100 mg PO HS metformin 1,000 mg PO BID omega 8-dxu-mei-fish oil [Morley-3] 1 cap PO QDL spironolactone 25 mg PO BID STOP taking 2 weeks before surgery (or as soon as possible if surgery is within 2 weeks) glucos sul 3OEs-uxw-omlqh-C-Mn [Glucosamine Chondroitin] 1 cap PO BID omega 9-vah-jty-fish oil [Morley-3] 1 cap PO QDL DO NOT take the morning of surgery cetirizine [Zyrtec] 10 mg PO UD PRN glyburide 5 mg PO BID metformin 1,000 mg PO BID spironolactone 25 mg PO BID Take morning of surgery With a small sip of water, OTHERWISE NOTHING TO EAT OR DRINK AFTER MIDNIGHT: diltiazem HCl 240 mg PO QAM levothyroxine [Synthroid] 112 mcg PO QAM Take evening before surgery cetirizine [Zyrtec] 10 mg PO UD PRN (if needed) glyburide 5 mg PO BID losartan 100 mg PO HS metformin 1,000 mg PO BID spironolactone 25 mg PO BID Other Notes If you have any questions please call us at [phone] or [phone] or [phone] or [phone]
--- NOTE | 2018-12-23 12:31 | Anesthesiology Consultation ---
Date of Service December 23, 2018 Assessment & Plan (1) Encounter for pre-operative examination: - Check BSG AM DOS Chart Review Chart Review: Acceptable Risk for Surgery and Patient seen in Pre Admission Testing Teaching & Discussion Pre-Anesthesia Teaching/Discussion Notes: Instructed NPO after midnight before surgery,except medications with 15 cc of water. Medication instructions provided according to the PAT guidelines. History Surgery Operation Date: 01/14/19 10:40 Proposed Procedures p Right Total Knee Arthroplasty - Adrián Gar MD Height/Weight Height: 5 ft 1.5 in Weight: 130 kg Allergies Allergy/AdvReac Type Severity Reaction Status Date / Time No Known Allergies Allergy Unknown Unverified 12/17/18 09:10 Medications Home Medications Medication Instructions Recorded Confirmed Last Taken cetirizine [Zyrtec] 10 mg PO UD PRN 12/17/18 12/17/18 Unknown diltiazem HCl 240 mg PO QAM 12/17/18 12/17/18 12/17/18 glucos sul 1KKb-sff-pznnh-C-Mn 1 cap PO BID 12/17/18 12/17/18 Unknown [Glucosamine Chondroitin] glyburide 5 mg PO BID 12/17/18 12/17/18 12/17/18 levothyroxine [Synthroid] 112 mcg PO QAM 12/17/18 12/17/18 12/17/18 losartan 100 mg PO HS 12/17/18 12/17/18 12/16/18 metformin 1,000 mg PO BID 12/17/18 12/17/18 12/17/18 omega 3-zyv-awk-fish oil [Cameron-3] 1 cap PO QDL 12/17/18 12/17/18 Unknown spironolactone 25 mg PO BID 12/17/18 12/17/18 12/17/18 Past Medical History Medical History Diabetes NIDDM Hypertension Hypothyroid Morbid obesity Osteoarthritis Exercise / Class Metabolic Activity III < 4 Walking/Shop/Light housework (cane prn) Past Family History Family History Father Family history of pancreatic cancer Other Family history of colon cancer in mother Past Surgical History Surgical History History of back surgery no hardware History of colonoscopy History of intestinal surgery 2/2 small intestine perforation Past Anesthesia History No Hx of Anesthesia Complications and No Family Hx of Anesthesia Complications History of PONV No Hx of PONV and No Hx of Motion Sickness Social History Smoking Status: Never smoker Do You Dip or Chew Tobacco: No Hx Alcohol Use: Yes alcohol intake frequency: holidays/special occasions only Hx Substance Use: No substance use type: does not use Review of Systems Patient denies chest pain, shortness of breath, cough, wheezing, palpitations. Physical Exam Vital Signs VITALS BP 120/86 P 97 TEMP 98.1 SP02 96%RA RESP 16 PHYSICAL Full neck and c-spine range of motion. Full TMJ range of motion. TMD 3 finger breaths Mallampati Score 2 Dentition: intact, several crowns on sides Lungs: clear throughout to auscultation Cardiac: regular rate and rhythm, no murmurs noted Spine: normal Carotid arteries: negative bruit Extremities: non-pitting LE edema Large tongue Short, thick neck Testing Laboratory Results PT 10.8 Seconds (9.0-12.0) 12/23/18 13:05 INR 1.1 (0.9-1.1) 12/23/18 13:05 APTT 25.1 Seconds (21.0-31.0) 12/23/18 13:05 Blood Type A Positive 12/23/18 13:05 Antibody Screen NEGATIVE 12/23/18 13:05 11/15/18 WBC 10.5 H/H 12.8/36.5 PLATELETS 309 SODIUM 138 POTASSIUM 4.2 CHLORIDE 108 CO2 18 BUN 26 CREATININE 1.1 GLUCOSE 153 HGBA1C 7.1% Electrocardiogram Date: 12/23/18 SR with first degree AVB at 98bpm. Chest X-Ray Date: 12/23/18 Findings: + NAD Stress Test Date: 02/07/15 Type: DSE Negative DSE/stress EKG for ischemia at 87% MPHR. No chest pain. No significant valvular disease. Mild cLVH.
--- NOTE | 2018-12-23 13:57 | XRay Report ---
TWO VIEW CHEST CLINICAL HISTORY: Preoperative examination. FINDINGS: PA and lateral chest radiographs are compared to study dated 06/22/2016. The cardiomediastina l silhouette is unremarkable. The lungs and pleural spaces are clear. There is no pneumothorax. The skeletal structures are osteopenic. The bony thorax appears intact. Degenerative change is noted thro ughout the thoracic spine. IMPRESSION: No active disease in the chest. Electronically signed by: Trent Torres M.D. 12/23/2018 1:56 PM
[2018-12-23 14:15] LABS: INR 1.1 (0.9-1.1); Partial Thromboplastin Ratio 0.9; Partial Thromboplastin Time 25.1 Seconds (21.0-31.0); Prothrombin Time 10.8 Seconds (9.0-12.0)
--- NOTE | 2019-01-05 23:41 | History and Physical Report ---
DATE OF ADMISSION: 01/14/2019 CHIEF COMPLAINT: Bilateral knee pain and discomfort, right side greater than left. HISTORY OF PRESENT ILLNESS: The patient is a 68-year-old female referred by Dr. Cole for treatment of her knees. She has got a long history of bilateral knee pain and discomfort, it just gotten worse over the years. No real definitive treatment. She did have an injection several months ago, which helped her for a couple days and that is about it. She is thinking about having some intervention on knees and then she had back surgery about 4 years ago. She then had abdominal surgery 2 years ago and had to put her knees off until now. Both knees bother. The right side is worse than the left. It is global pain. Her walking tolerance is about 1 block. She now would like to have her knees fixed. She has difficulty going up and down stairs. PAST MEDICAL HISTORY: Past medical history consists of 1. Hypertension. 2. Diabetes x10 years. 3. Hypothyroidism. 4. Morbid obesity. 5. Back and spine arthritis. PAST SURGICAL HISTORY: Include: 1. Back surgery 4 years ago. 2. Abdominal surgery 2 years ago. ALLERGIES: None. CURRENT MEDICINES: 1. Glyburide 5 mg before meals. 2. [place]-3. 3. Glucosamine/chondroitin. 4. Losartan 100 mg daily. 5. Synthroid 112 mcg a day. 6. Metformin ER 1000 mg twice a day. 7. B complex. 8. Zyrtec 10 mg as needed. 9. Spironolactone 20 mg twice a day. SOCIAL HISTORY: A 68-year-old female patient from [place]. She is a retired teacher. She is . Does not smoke. FAMILY HISTORY: Noncontributory. REVIEW OF SYSTEMS: Significant for diabetes. Denies any current chest pain or shortness of breath. No history of DVT or PE. No known bleeding problems. PHYSICAL EXAMINATION: GENERAL: A fairly large middle-aged female. Looks to be in reasonably good health. HEENT: Benign. NECK: Supple, no lymphadenopathy. LUNGS: Clear to auscultation. HEART: Regular rate and rhythm. ABDOMEN: Soft, nontender, nondistended. EXTREMITIES: Grossly neurovascularly intact except as follows: Examination of both knees reveals patient walks with use of a walker. She walks with a waddling gait. Examination of right knee reveals a large soft tissue envelope. She has varus alignment to her knee. Range of motion about 5 degrees show full extension to 90 degrees of flexion and pretty stiff. No detectable knee effusion due to her large soft tissue envelope. No pain with hip motion. She is tender over the medial joint line. Examination of the left knee reveals varus deformity. Large soft tissue envelope. Range of motion is 5-90. No instability. No pain with hip motion. She is neurologically intact. Both knees reveal advanced bilateral knee DJD. She has complete loss of medial joint space. She has tibial femoral subluxation on both sides. She has tricompartment disease. 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 Right side is more symptomatic than the left. She has failed conservative treatment. PLAN: We talked about treatment. She would like to have her knees fixed. We will proceed with right total knee replacement. We will likely put a stem in the tibia due to her large size and significant deformity. The risks and benefits of right total knee replacement were explained to the patient including but not limited to DVT, PE, , infection, neurological injury, vascular injury, bleeding problem, pain, limited range of motion, stiffness, failure to relieve symptoms, incomplete relief of symptoms, need for further surgery in future, fracture, leg length inequality, nerve palsy, etc. The patient understands and desires to proceed. Informed consent was obtained. I did tell her with her large size, there is increased risk of infection and she is aware of this. As far as discharge plans, she is planning to be discharged to home with her and her daughter's assistance. She will likely have home health. She does know to hold the metformin the morning of surgery.
[~2019-01-14 07:42] MED LIST changes: +ACETAMINOPHEN 500 MG TAB PO SCH; -B-COTAB18 PO; +BUPIVACAINE 0.5 % 5 MG/1 ML PF 10ML VIAL ONE; +BUPIVACAINE LIPOSOME/PF 266 MG, BUPIVACAINE/EPINEPHRINE 50 ML, SODIUM CHLORIDE 0.9% 30 ... INFIL SCH; +CEFAZOLIN 3000MG 72.5 ML IV SCH; -CETI10TA84 PO; -DILT240C75 PO; +FAMOTIDINE 20 MG TAB PO SCH; +GABAPENTIN 300 MG CAP PO SCH; -GLUCTAB7 PO; -GLY/5 PO; -Juice Plus Fruit PO; +LACTATED RINGER'S 1,000 ML IV SCH; -LEVO112T2 PO; -LOSA100T65 PO; +LR 15ML/HR IV SCH; +LR 500ML BOLUS, THEN 15ML/HR IV SCH; -METF500T5 PO; +METOCLOPRAMIDE HCL 10 MG TABLET PO SCH; -OMEG12006 PO; -OXYC-57 PO; +ROPIVACAINE 0.5% 5 MG/ML 30 ML VIAL ONE; +SCOPOLAMINE 1.5 MG TDSY TD SCH; +TRANEXAMIC ACID 1,000 MG **IV Intra-op IV SCH; +TRANEXAMIC ACID 1,000 MG **IV Pre-op IV SCH; -[UNRECOGNIZED DRUG - OTHER] PO
[2019-01-14] MEDS ORDERED: MIDAZOLAM HCL 1 MG/ML 2ML VIAL ONE (08:20)
[2019-01-14] MEDS ORDERED: fentaNYL citrate 100 MCG/2 ML VIAL ONE (08:21)
--- NOTE | 2019-01-14 08:45 | History & Physical Bridge Note ---
Date of Service January 14, 2019 History & Physical Bridge Note I have examined the patient, reviewed the History & Physical and in the interval since the performance of the History & Physical I have noted the following changes of clinical significance: no changes noted
[2019-01-14] MEDS ORDERED: ePHEDrine sulfate 50 MG/ML AMP IV PRN (10:25)
[2019-01-14] MEDS ORDERED: KETOROLAC 30 MG/ML VIAL IV PRN (10:25)
[2019-01-14] MEDS ORDERED: ATROPINE SULFATE 0.1 MG/ML 10ML SYR IV PRN (10:25)
[2019-01-14] MEDS ORDERED: HYDROmorphone INJ 0.5 MG/0.5 ML SYR IV PRN (10:25)
[2019-01-14] MEDS ORDERED: ONDANSETRON INJ 2 MG/ML 2 ML VIAL IV PRN ×2 (10:25→14:39)
[2019-01-14] MEDS ORDERED: PHENYLEPHRINE 100MCG/ML 5ML SYR IV PRN (10:25)
[2019-01-14] MEDS ORDERED: BUPIVACAINE 0.25% 30 ML VIAL ONE (10:49)
[2019-01-14] MEDS ORDERED: BACITRACIN INJ 50,000 UNIT VIAL ONE (10:49)
[2019-01-14] MEDS ORDERED: BUPIVACAINE LIPOSOME 1.3% 266 MG/20 ML VIAL ONE (10:49)
[2019-01-14] MEDS ORDERED: EPINEPHrine INJ 1 MG/ML AMP ONE (10:49)
[2019-01-14] MEDS ORDERED: SODIUM CHLORIDE 0.9% PF 50 ML VIAL ONE (10:49)
[2019-01-14] MEDS ORDERED: PROPOFOL IV EMULSION 10 MG/ML 20 ML VIAL IV ONE ×5 (11:55→13:08)
[2019-01-14] MEDS ORDERED: LIDOCAINE HCL 2% 2 ML VIAL/AMP(20MG/ML) INFIL ONE (11:55)
[2019-01-14] MEDS ORDERED: ONDANSETRON INJ 2 MG/ML 2 ML VIAL ONE (11:55)
[2019-01-14] MEDS ORDERED: PHENYLEPHRINE HCL 10 MG/ML VIAL ONE (11:55)
[2019-01-14] MEDS ORDERED: VANCOMYCIN HCL 1000MG/20ML VIAL ONE (12:23)
--- NOTE | 2019-01-14 13:24 | Post Operative Brief Note ---
PG Immediate Post Op with CF Date of Surgery January 14, 2019 Pre & Post Diagnosis Operation Date: 01/14/19 10:40 Pre-Op Diagnosis: Right Knee Degenerative Joint Disease Post-Op Diagnosis: Right Knee Degenerative Joint Disease Procedure Operation Date: 01/14/19 10:40 Actual Procedures p Right Total Knee Arthroplasty(Right) - Adrián Gar MD Surgeon Adrián Gar MD Benchroom Shop Optician None Estimated Blood Loss 50 Findings Consistent with Post-Op Diagnosis Fluids 500 cc Specimens Specimen Description: Permanent Specimen A: Right knee bone and tissue Drains Velazquez Catheter Anesthesia Type Spinal MAC Complications none Disposition Accompanied Patient To Recovery: Yes Disposition: Recovery Room
--- NOTE | 2019-01-14 13:45 | XRay Report ---
XR knee RT 2V routine CLINICAL HISTORY: Surgical Post Op COMPARISON: 07/20/2018 DISCUSSION: Total right knee arthroplasty. Longstem tibial tibial prosthetic. Expected soft tissue po stoperative change. Anatomic alignment of all components with good contact with underlying bone. IMPRESSION: Anatomic alignment posttotal right knee arthroplasty/revision The above report was generated using voice recognition software. It may contain grammatical, syntax or spelling errors. Electronically signed by: Amarjit Cardoza M.D. 01/14/2019 1:43 PM
--- NOTE | 2019-01-14 14:25 | Anesthesiology Progress Note ---
Date of Service January 14, 2019 Anesthesia Post Procedure Vital Signs Vital Signs: Temp Pulse Pulse Resp BP Pulse Ox 01/14/19 14:10 87 18 122/82 98 01/14/19 14:00 86 20 123/80 99 01/14/19 13:50 76 19 110/71 100 01/14/19 13:40 71 13 116/72 100 01/14/19 13:30 74 18 116/69 100 01/14/19 13:24 37.4 C 78 18 113/71 99 01/14/19 08:46 37.2 C 111 H 20 116/84 96 Transfer of Care Handoff Completed per policy Notes Mental Status: alert / awake / arousable Patient Amnestic to Procedure: Yes Nausea / Vomiting: adequately controlled Pain: adequately controlled Airway Patency, RR, SpO2: stable & adequate BP & HR: stable & adequate Hydration State: stable & adequate Neuraxial Anesthesia: was administered and sensory block is resolving Anesthetic Complications: no major complications apparent
[2019-01-14] MEDS ORDERED: DEXTROSE 50% 50 ML SYRINGE IV PRN (14:39)
[2019-01-14] MEDS ORDERED: NALOXONE HCL 0.4 MG/1 ML VIAL/CARP IV PRN (14:39)
[2019-01-14] MEDS ORDERED: METOCLOPRAMIDE HCL INJ 5 MG/ML 2 ML VIAL IV PRN (14:39)
[2019-01-14] MEDS ORDERED: GLUCAGON FOR INJ 1 MG VIAL SQ PRN (14:39)
[2019-01-14] MEDS ORDERED: ALUMINUM/MAGNESIUM SUSP 30 ML UDC PO PRN (14:39)
[2019-01-14] MEDS ORDERED: MAGNESIUM HYDROXIDE SUSP 30 ML UDC PO PRN (14:39)
[2019-01-14] MEDS ORDERED: GLUCOSE 10 TABS/TUBE PO PRN (14:39)
[2019-01-14] MEDS ORDERED: GLUCOSE 40% GEL 15 GM TUBE PO PRN (14:39)
[2019-01-14] MEDS ORDERED: PHARMACY GLYCEMIC MGMT CONSULT STA (14:39)
[2019-01-14] MEDS ORDERED: CETIRIZINE HCL 10 MG TABLET PO PRN (14:39)
[2019-01-14] MEDS ORDERED: BISACODYL 10 MG SUPP PR PRN (14:39)
[2019-01-14] MEDS ORDERED: CARBOHYDRATES FOR HYPOGLYCEMIA PO PRN (14:39)
[2019-01-14] MEDS ORDERED: PHARMACY GLYCEMIC MGMT CONSULT PRN (15:07)
[2019-01-14] MEDS ORDERED: PNEUMOCOCCAL POLYSACCHARIDES 25 MCG/0.5 ML VIAL/SYR IM ONE (15:15)
[2019-01-14] MEDS ORDERED: PNEUMOCOCCAL ADMINISTRATION CHARGE ONE (15:15)
[2019-01-14] MEDS: SODIUM CHLORIDE 0.9% 1000ML 1,000 ML IV SCH ×2 (15:23→22:09)
[2019-01-14] MEDS: CHECK SCOPOLAMINE PATCH PLACEMENT SCH ×2 (15:24→23:48)
[2019-01-14] MEDS: OXYCODONE HCL IR 5 MG TAB (IMMEDIATE RELEASE) PO PRN (15:38)
[2019-01-14] MEDS: ASCORBIC ACID 500 MG TAB PO SCH (17:09)
[2019-01-14] MEDS: SPIRONOLACTONE 25 MG TAB PO SCH (17:09)
[2019-01-14] MEDS: FERROUS GLUCONATE 324 MG TAB PO SCH (17:09)
[2019-01-14] MEDS: KETOROLAC TROMETHAMINE 15 MG/ML VIAL IV SCH ×2 (17:28→23:47)
[2019-01-14] MEDS: CEFAZOLIN 2000MG 2,000 MG/15 ML SYR IV SCH (17:28)
[2019-01-14] MEDS: INSULIN ASPART 100 UNITS/ML 3 ML PEN SC SCH ×2 (17:34→22:05)
[2019-01-14] MEDS ORDERED: TRANEXAMIC ACID 1,000 MG in 0.9 % SODIUM CHLORIDE 100 ML IV SCH (19:25)
[2019-01-14] MEDS: HYDROmorphone INJ 0.5 MG/0.5 ML SYR IV PRN (20:49)
[2019-01-14] MEDS: TAPENTADOL HCL ER 50 MG TABCR PO SCH (20:50)
[2019-01-14] MEDS: LOSARTAN POTASSIUM 50 MG TAB PO SCH (20:50)
[2019-01-14] MEDS: ASPIRIN 81 MG ECTAB PO SCH (20:51)
[2019-01-14] MEDS: SENNA 8.6 MG TAB PO SCH (20:51)
[2019-01-14] MEDS: DOCUSATE SODIUM 100 MG CAP PO SCH (20:52)
[2019-01-14] MEDS ORDERED: glyBURIDE 5 MG TAB PO SCH (21:00)
[2019-01-14] MEDS: ACETAMINOPHEN 500 MG TAB PO SCH (22:10)
[2019-01-15] MEDS: CEFAZOLIN 2000MG 2,000 MG/15 ML SYR IV SCH (01:56)
--- NOTE | 2019-01-15 03:43 | Operative Report ---
DATE OF OPERATION: 01/14/2019 DATE OF PROCEDURE: 01/14/2019 SURGEON: Adrián Gar MD ASSESSMENT DIRECTOR: None. PREOPERATIVE DIAGNOSIS: Right knee degenerative joint disease. POSTOPERATIVE DIAGNOSIS: Right knee degenerative joint disease. PROCEDURE PERFORMED: Right cemented posterior stabilized total knee arthroplasty. COMPLICATIONS: None. ESTIMATED BLOOD LOSS: 50 mL. FLUID REPLACEMENT: 500 mL crystalloid fluid replacement. TOURNIQUET TIME: 77 minutes at 350 mmHg. ANESTHESIA: Spinal with adductor canal block. DRAINS: None. SPECIMENS: Right knee sent for pathology. OPERATIVE INDICATIONS: The patient is a 68-year-old female who had a long history of bilateral knee pain and discomfort and disability. She has been through extensive conservative treatment in the past. She is morbidly obese with a BMI of 53. Her walking tolerance is limited to about a block maximum even with assistance devices. She was having difficulty trying to lose weight and manage her symptoms. X-rays reveal advanced bilateral knee DJD with extensive degenerative changes particularly medial with bone wear of the proximal tibia. The patient elected to proceed with operative treatment. OPERATIVE FINDINGS: Operative findings were advanced right knee DJD. She had extensive grade 4 changes in all 3 compartments, most severe in the medial side. She had excessive wear of the posteromedial tibial plateau. Large knee joint effusion. She has large soft tissue envelope. OPERATIVE IMPLANTS: Operative implants consisted of: 1. Biomet Vanguard size 62.5 right posterior stabilized femoral component. 2. Biomet size 67 tibial tray with a small cruciate wing, an 80 x 12 mm offset stem with a 5.0 mm offset. 3. A 10 mm posterior stabilized polyethylene insert. 4. A 28 x 8 all poly patella. OPERATIVE PROCEDURE: The patient taken to the operating room, identified and placed on the operating table in supine position. All contact areas were appropriately padded. IV antibiotics were provided by the anesthesia team. A spinal anesthetic had been implemented in the holding area. Velazquez catheter was placed in sterile fashion. Right thigh tourniquet was then placed and the right lower extremity was then prepped and draped in usual sterile fashion. The right leg was elevated and exsanguinated with Esmarch and tourniquet was placed at 350 mmHg. An anterior approach to the right knee was then performed through a longitudinal incision centered over the patella. Sharp dissection was carried through the subcutaneous tissue down to the level of the extensor mechanism. Medial parapatellar arthrotomy incision was made. Some subperiosteal dissection was carried out medially. The fat pad resected from beneath the patellar tendon. The lateral patellofemoral ligament was released. The patella was subluxated laterally and the knee was flexed. The osteophytes were taken off the distal femur. The ACL and PCL were then released from the distal femur and the tibia subluxated anteriorly. Due to her large size and significant deformity, I elected to place an intramedullary tibial component to maximize her stability and likely the longevity of the implant. The tibial eminence was resected. The canal entry device was used to enter the canal and the canal was reamed up to a size 12. I used the 12 reamer to cut the proximal tibia about a millimeter below the most deficient aspect of the medial tibial plateau. Some osteophytes were taken off medial and posteromedially. I then sized the tibia to a size 67. The tibia was then prepared for a 12 mm x 80 mm offset stem with a small cruciate wing. The trial implant was placed and fit nicely. Some osteophytes were taken off medial and posteromedially. Attention was then drawn to femur. The distal femur was entered with a sharp drill. Intramedullary canal was suctioned. A right 5-degree valgus cutting guide was placed. Distal femoral cutting block was pinned in place. Distal femoral cut was made to take an additional 3 mm of bone off the distal femur. Femur was then sized to a size 62.5. The AP cutting block was pinned parallel to the epicondylar axis, which was 3 degrees of external rotation. The anterior cut, anterior chamfer cut, posterior cut, posterior chamfer cuts were made. Box cutting guide was placed and adjusted slightly lateral and the box cut was made. The knee was flexed. The remnants of the medial and lateral menisci were excised. The osteophytes were taken off the posterior aspect of the femur. Trial femoral component was placed. The tibial tray was already in place. I then trialed the knee and the 10 mm insert fit most appropriately. Attention was drawn to patella. The patella was cleaned of all soft tissues. Patella thickness measured about 20 mm in thickness, it was cut down to 13. It was sized to a size 28 patella. Lug holes were drilled for a 28 patella. Lateral osteophyte was removed. Patella button was placed. Knee was taken through range of motion and patella tracked nicely with no thumbs test. Attention was then drawn toward placement of permanent components. All trial components were removed. A bone plug was placed in the distal femur to limit blood loss. A double batch of Palacos G cement was mixed. I added an additional gram of vancomycin due to her increased infection risk due to her morbid obesity and her diabetes. A Biomet Vanguard size 62.5 right posterior stabilized femoral component, size 67 tibial tray with an 80 x 12 mm offset stem with a 5.0 mm offset and a small cruciate wing followed by 10 mm posterior stabilized polyethylene insert, and a 28 x 8 all poly patella then cemented in place. Knee was brought into full extension until cement hardened. A final cement check was then performed. Pericapsular tissues were injected with a total of 100 mL of combination of 20 mL of Exparel, 30 mL of normal saline, 50 mL 0.25% Marcaine with epinephrine. The patient did receive 1 gram of tranexamic acid. The tourniquet was then let down for final tourniquet time of 77 minutes. Hemostasis was assured with use of electrocautery. The extensor mechanism was then closed with a combination of #1 PDS suture and #1 Vicryl suture in a [id number] fashion. Extensor mechanism was checked and found to be intact. The subcutaneous tissues were then closed with #2 Dexon suture in a buried interrupted fashion. Skin was closed with skin chantale. Leg was then cleaned and dried and a sterile dressing of Xeroform, 4 x 4, sterile cast padding and Gold bandage were applied. The patient then transferred to the recovery room in stable condition. The patient tolerated the procedure well with no complications. All needle and sponge counts were correct at the end of the operation. I attest to the content of the Intraoperative Record and any orders documented therein. Any exceptions are noted below. RACHELD
[2019-01-15] MEDS: SODIUM CHLORIDE 0.9% 1000ML 1,000 ML IV SCH ×2 (04:59→11:00)
[2019-01-15] MEDS: KETOROLAC TROMETHAMINE 15 MG/ML VIAL IV SCH ×4 (05:01→23:28)
[2019-01-15] MEDS: ACETAMINOPHEN 500 MG TAB PO SCH ×3 (05:01→21:53)
[2019-01-15] MEDS: OXYCODONE HCL IR 5 MG TAB (IMMEDIATE RELEASE) PO PRN ×3 (06:24→21:53)
[2019-01-15 06:25] LABS: Hematocrit (blood only) 30.6 % (37-47); Hemoglobin 10.4 g/dL (12.0-16.0); Mean Corpuscular Volume 88.4 fL (80-100); Mean Platelet Volume 10.6 fL (7.4-10.4); Platelet Count 248 K/uL (130-400); RDW Coefficient of Variation 12.5 % (11.5-14.5); RDW Standard Deviation 40.3 fL (36.4-46.3); Red Blood Count 3.46 M/uL (4.2-5.4); White Blood Count 10.67 K/uL (4.8-10.8)
[2019-01-15 07:02] LABS: BUN Creatinine Ratio 19.5 (10-20); Creatinine Clr Calc Pharmacy 63.5 ml/min; Est GFR (African American) 60.4; Est GFR (Non-African American) 52.1; Potassium 4.5 mmol/L (3.5-5.1)
[2019-01-15] MEDS: FERROUS GLUCONATE 324 MG TAB PO SCH ×2 (08:20→17:27)
[2019-01-15] MEDS: MULTIVITAMIN TAB PO SCH (08:20)
[2019-01-15] MEDS: ASPIRIN 81 MG ECTAB PO SCH ×2 (08:20→20:29)
[2019-01-15] MEDS: dilTIAZem HCL 240 MG CAPCR PO SCH (08:20)
[2019-01-15] MEDS: ASCORBIC ACID 500 MG TAB PO SCH ×2 (08:21→17:27)
[2019-01-15] MEDS: LEVOTHYROXINE SODIUM 112 MCG TABLET PO SCH (08:21)
[2019-01-15] MEDS: SPIRONOLACTONE 25 MG TAB PO SCH ×2 (08:22→17:27)
[2019-01-15] MEDS: TAPENTADOL HCL ER 50 MG TABCR PO SCH ×2 (08:27→20:31)
[2019-01-15] MEDS: DOCUSATE SODIUM 100 MG CAP PO SCH ×2 (08:27→20:29)
[2019-01-15] MEDS: HYDROmorphone INJ 0.5 MG/0.5 ML SYR IV PRN (08:28)
[2019-01-15] MEDS: INSULIN ASPART 100 UNITS/ML 3 ML PEN SC SCH ×4 (08:31→21:46)
--- NOTE | 2019-01-15 08:57 | Progress Note ---
DATE: 01/15/2019 SUBJECTIVE: A 68-year-old white female postop day 1 from right knee replacement. She is doing okay. Pain is controlled. No chest pain or shortness of breath. Not feeling dizzy or lightheaded. OBJECTIVE: VITAL SIGNS: Temperature 36.4. Vital signs stable. GENERAL: Reveals a pleasant, middle-aged female. She is sitting up in bed and doing heel prop and looks pretty comfortable. EXTREMITIES: Examination of the right leg reveals it to be well aligned. She can dorsiflex and plantarflex her foot appropriately. She is neurologically intact. LABORATORY DATA: Hemoglobin 10.4. Hematocrit 30.6. Electrolytes are stable. ASSESSMENT: A 68-year-old white female postop day 1 from right knee replacement, doing reasonably well. Pain seems to be controlled. She is neurologically intact. PLAN: 1. DVT prophylaxis including thigh-high TEDs, SCDs, and aspirin twice a day. 2. PT/OT. Weight bear as tolerated. Right total knee protocol. 3. Pain control, doing well with current pain regimen. 4. Disposition: She is planning to be discharged to home with some home health once adequately recovered.
[2019-01-15] MEDS ORDERED: INSULIN GLARGINE SOLOSTAR 100 UNITS/ML 3 ML PEN SC SCH (09:00)
[2019-01-15] MEDS: OMEGA-3 (PURIFIED FISH OIL) 1 GM CAP PO SCH (11:30)
--- NOTE | 2019-01-15 11:37 | Pharmacy Report ---
Glycemic Control Consultation - Date of Service January 15, 2019 - Scope Scope: Glycemic Pharmacist consulted by Dr Gar on 01/14/19 for glycemic control and to write orders per [facility] inpatient glycemic control protocol - Objective Weight: 130 kg Accuchecks BSG (last 24hrs): 01/14/19 01/14/19 01/14/19 13:36 17:08 20:32 Glucose POC Glucose 144 H 140 H 109 H 01/15/19 01/15/19 05:38 08:06 Glucose 169 H POC Glucose 160 H Laboratory Data (last 24hrs): 01/15/19 05:38 Potassium 4.5 Carbon Dioxide 24 Anion Gap 7.0 Creatinine 1.09 Est Cr Clr Drug Dosing 63.5 - Recent Pertinent Medications Outpatient Anti-diabetic Regimen: * glyburide 5 mg PO BIDM plus metformin 1 gm PO BID * A1c = 7.1 % 11/15/18 The patient is currently receiving: * Basal insulin: Lantus -- units every -- hours * Correctional Insulin: Novolog Correction per scale ACHS Goal Range: Low 110 mg/dL - High 140 mg/dL Correction Factor: 20 mg/dL/unit * Prandial insulin: Per carb ratio of 1 unit per 6 grams CHO consumed * Oral Agents: Risk Factors for Insulin Resistance: * Recent Surgery: POD 1 for knee surgery * Diet: T2DM - Assessment & Plan Assessment & Plan: ASSESSMENT: * Ms Almendarez is a 68 y/o F with a PMH of Type 2 diabetes with reasonable control on two oral agents. Patient had knee surgery yesterday; she received no steroids. She received only Novolog last evening (6 units). Blood sugars yesterday [phone] (trending down). Fasting today is 160 mg/dL. * With elevated fasting, will provide one time dose of Lantus 20 units (~0.2 units/kg). Continue weight- based stress of 2 Novolog dosing for now as appears effective. * Start metformin this evening after surgery. PLAN FOR INPATIENT GLYCEMIC CONTROL: * Holding outpatient oral diabetes medications - start metformin 1 gm PO BID tonight with dinner * Basal insulin * Lantus 20 units SQ x 1 * Bolus insulin * NovoLog per scale ACHS or Q6hrs while NPO * Goal Range: Low 110 mg/dL - High 140 mg/dL * Correction Factor: 20 mg/dL/unit * Nutritional / Prandial insulin per carb ratio of 1 unit per 6 grams CHO consumed Recommendation for Outpatient therapy * HbA1C is elevated at 7.1% recommend weight loss or exercise. Patient could increase glyburide dose but these do lose potency after several years of therapy. Thank you.
[2019-01-15] MEDS: METFORMIN HCL 500 MG TAB PO SCH (17:27)
[2019-01-15] MEDS: SENNA 8.6 MG TAB PO SCH (20:29)
[2019-01-15] MEDS: LOSARTAN POTASSIUM 50 MG TAB PO SCH (20:30)
[2019-01-16] MEDS: KETOROLAC TROMETHAMINE 15 MG/ML VIAL IV SCH ×2 (06:01→11:01)
[2019-01-16] MEDS: ACETAMINOPHEN 500 MG TAB PO SCH (06:02)
--- NOTE | 2019-01-16 07:55 | Progress Note ---
DATE: 01/16/2019 SUBJECTIVE: A 68-year-old white female postop day 2 from right knee replacement. She is doing pretty well this morning. Pain seems to be a little bit better. No chest pain or shortness of breath. Not feeling dizzy or lightheaded. She is really hoping to go home today. OBJECTIVE: VITAL SIGNS: Temperature 36.7. Vital signs stable. GENERAL: Physical examination shows a pleasant, middle-aged female. She is lying in bed, looks comfortable. EXTREMITIES: Examination of the right leg reveals incision to be clean, dry and intact. No significant drainage. Incision is well approximated. She is neurologically intact. ASSESSMENT: A 68-year-old white female postop day 2 from right knee replacement, doing well. Her pain is controlled. She is neurologically intact. PLAN: 1. DVT prophylaxis including thigh-high TEDs, SCDs, and aspirin twice a day. 2. PT/OT. Weight bear as tolerated. Right total knee protocol. 3. Pain control, doing well with current pain regimen. 4. Disposition: Plan to discharge to home with some home health later today.
[2019-01-16] MEDS: INSULIN ASPART 100 UNITS/ML 3 ML PEN SC SCH (08:36)
[2019-01-16] MEDS: TAPENTADOL HCL ER 50 MG TABCR PO SCH (08:41)
[2019-01-16] MEDS: SPIRONOLACTONE 25 MG TAB PO SCH (08:42)
[2019-01-16] MEDS: FERROUS GLUCONATE 324 MG TAB PO SCH (08:42)
[2019-01-16] MEDS: DOCUSATE SODIUM 100 MG CAP PO SCH (08:42)
[2019-01-16] MEDS: LEVOTHYROXINE SODIUM 112 MCG TABLET PO SCH (08:42)
[2019-01-16] MEDS: MULTIVITAMIN TAB PO SCH (08:42)
[2019-01-16] MEDS: METFORMIN HCL 500 MG TAB PO SCH (08:43)
[2019-01-16] MEDS: ASPIRIN 81 MG ECTAB PO SCH (08:43)
[2019-01-16] MEDS: dilTIAZem HCL 240 MG CAPCR PO SCH (08:43)
[2019-01-16] MEDS: ASCORBIC ACID 500 MG TAB PO SCH (08:43)
[2019-01-16] MEDS ORDERED: INSULIN GLARGINE SOLOSTAR 100 UNITS/ML 3 ML PEN SC SCH (09:00)
[2019-01-16] MEDS: OXYCODONE HCL IR 5 MG TAB (IMMEDIATE RELEASE) PO PRN (11:00)
[2019-01-16] MEDS: OMEGA-3 (PURIFIED FISH OIL) 1 GM CAP PO SCH (11:01)
--- NOTE | 2019-01-19 15:53 | Discharge Summary ---
ADMITTING PHYSICIAN AND SURGEON: Dr. Adrián Gar. ADMITTING DIAGNOSIS: Right knee degenerative joint disease. SURGERY PERFORMED: Right total knee arthroplasty. SECONDARY DIAGNOSES: Hypertension, diabetes, hypothyroidism, morbid obesity, back pain, spine arthritis. CONSULTS: None obtained. HOSPITAL COURSE: The patient was admitted on 01/14/2019, underwent a total knee arthroplasty, tolerated the procedure well. There were no complications. She was transferred to the PACU postoperatively and later to the orthopedic floor for further care. She was given Ancef for antibiotic prophylaxis, MICHAEL stockings, SCDs and aspirin for DVT prophylaxis. Hemoglobin, hematocrit and vital signs were monitored during her hospital stay and remained stable. She did not require any blood transfusions. There were no complications. By postoperative day 2, she was tolerating a diabetic diet. Pain was controlled with oral pain medicine. She was participating in physical therapy. On postop day 2, she was discharged home, set up with home health services. She was given printed discharge instructions as well as new prescriptions for extra-strength Tylenol, aspirin and iron supplement. Continue her home medications, continue physical therapy, weightbearing as tolerated, MICHAEL stockings. Follow up approximately 2 weeks postop or sooner if there are any problems or concerns.
== END 2019-01-16 12:02 | disposition home health service (06) | DRG 470 ==
LOC: ASU 07:42 → 3E 14:31

== ENCOUNTER 2019-01-16 20:50 | Inpatient (IN) ==
[2019-01-16] MEDS ORDERED: CARBOHYDRATES FOR HYPOGLYCEMIA PO PRN (21:06)
[2019-01-16] MEDS ORDERED: ALUMINUM/MAGNESIUM SUSP 30 ML UDC PO PRN (21:06)
[2019-01-16] MEDS ORDERED: GLUCOSE 10 TABS/TUBE PO PRN (21:06)
[2019-01-16] MEDS ORDERED: ACETAMINOPHEN 325 MG TAB PO PRN (21:06)
[2019-01-16] MEDS ORDERED: ZOLPIDEM TARTRATE 5 MG TAB PO PRN (21:06)
[2019-01-16] MEDS ORDERED: POLYETHYLENE (MIRALAX) 17 GM PACK PO PRN (21:06)
[2019-01-16] MEDS ORDERED: GLUCOSE 40% GEL 15 GM TUBE PO PRN (21:06)
[2019-01-16] MEDS ORDERED: ONDANSETRON INJ 2 MG/ML 2 ML VIAL IV PRN (21:06)
[2019-01-16] MEDS ORDERED: GLUCAGON FOR INJ 1 MG VIAL SQ PRN (21:06)
[2019-01-16] MEDS ORDERED: DEXTROSE 50% 50 ML SYRINGE IV PRN (21:06)
[2019-01-16] MEDS ORDERED: MAGNESIUM HYDROXIDE SUSP 30 ML UDC PO PRN (21:06)
--- NOTE | 2019-01-16 21:56 | History & Physical Report ---
Date of Service January 16, 2019 Assessment & Plan (1) Humeral fracture: 8 y/o F Hx DM II, HTN, LE edema, hypothyroidism, osteoarthritis, morbidly obese. She underwent a R TKA 01/14 and was DCd 01/16. She took a few steps at home, lost her balance and fell on her L arm sustaining a L humeral fracture. As a result of this, she cannot mobilize as she is requiring a walker for balance and mobility following her TKA. She was transferred from [place] where she had initially presented and her chief complaint on arrival is pain in her arm, back and R knee. Nursing reported some blood in her urine after she had used the commode. 1) Humeral fracture - may not require any intervention, however, as she cannot ambulate as a result, she berta likely need short-term placement. We have consulted her orthopedist for an opinion on the utility of any intervention. She is provided with adequate analgesia. 2) Hematuria reported - she is on BID ASA pot-op. We will obtain a UA and avoid heparin overnight unless we can confirm there is no significant hematuria. She was on anticoagulation in the hospital. If there is hematuria and no infection, she should likely have a urology evaluation going forward. 3) HTN - cont Diltiazem, Losartan 4) Hypothroidism - cont Synthroid 5) DM II - placed on a SS 6) Edema - cont Aldactone Full code - BID ASA Total time for this admit including review of labs, imaging, records - discussion with pt and daughter - 38 min Present on Admission?: Yes History of Present Illness Chief Complaint: Fall, humeral fracture Primary Care Provider: Rohit Cole MD 68 y/o F Hx DM II, HTN, LE edema, hypothyroidism, osteoarthritis, morbidly obese. She underwent a R TKA 01/14 and was DCd 01/16. She took a few steps at home, lost her balance and fell on her L arm sustaining a L humeral fracture. As a result of this, she cannot mobilize as she is requiring a walker for balance and mobility following her TKA. She was transferred from [place] where she had initially presented and her chief complaint on arrival is pain in her arm, back and R knee. Nursing reported some blood in her urine after she had used the commode. PMH: 1) Lumbar stenosis 2) Morbid obesity BMI > 50 3) Hypothyroidism 4) HTN 5) LE edema 6) Osteoarthritis 7) DM II 8) SBO - incarcerated hernia and perforated viscus 2017 Surgical: 1) Lumbar surgery 2014 2) Small bowel resection 2017 Social: Does not drink or smoke Family: Father colon CA Mother pancreatic CA Allergies Allergy/AdvReac Type Severity Reaction Status Date / Time No Known Allergies Allergy Unknown Verified 01/14/19 08:25 Home Medications Home Medications Medication Instructions Recorded Confirmed Type Glucosamine Chondroitin 1 cap PO BID 12/17/18 01/14/19 History [place]-3 1 cap PO QDL 12/17/18 01/14/19 History Zyrtec 10 mg PO UD PRN 12/17/18 01/14/19 History diltiazem HCl 240 mg PO QAM 12/17/18 01/14/19 History glyburide 5 mg PO BID 12/17/18 01/14/19 History levothyroxine [Synthroid] 112 mcg PO QAM 12/17/18 01/14/19 History losartan 100 mg PO HS 12/17/18 01/14/19 History metformin 1,000 mg PO BID 12/17/18 01/14/19 History spironolactone 25 mg PO BID 12/17/18 01/14/19 History acetaminophen [Tylenol Extra 1,000 mg PO Q8 30 Days #180 tab 01/15/19 Rx Strength] aspirin [Ecotrin Low Strength] 81 mg PO BID 45 Days #90 tab 01/15/19 Rx ferrous gluconate 324 mg PO BIDM 30 Days #60 tab 01/15/19 Rx oxycodone 5 - 10 mg PO Q6H PRN 15 Days #40 01/15/19 Rx tab Past Med/Surg History Social History Preferred Language: Kyrgyz Communication Ability: Effective 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 Beliefs That Will Affect Care: Sikh Sikh Beliefs: AMISH marital status: Current Living Situation: Spouse and Family Feels Safe at Home: Yes Smoking Status: Never smoker Hx Alcohol Use: Yes Hx Substance Use: No Review of Systems Review of Systems: Gen: Denies fevers, night sweats, rigors, fatigue, malaise, weight loss/gain ENT: Denies congestion, throat pain, hearing loss Eyes: Denies acute visual changes CV: Denies CP, palpitations Pulmonary: Denies SOB, cough, wheezing GI: Denies N/V, diarrhea, constipation Neuro: Denies acute or unilateral weakness, acute gait impairment, headache or acute visual changes Musculoskeletal: Moderate to sever pain in L arm, lower back, R knee Endocrine: Denies polydipsia, polyuria Skin: Denies acute rashes or ulcers Physical Exam Physical Exam: General: AAO x 3, no distress ENT: No erythema or exudates, no thrush Eyes: SHY, EOMI Head and neck: Normocephalic, atraumatic, No JVD, neck is supple. Chest/heart: Nontender, S1,2, RRR, no murmurs, no gallops Lungs: CTAB, no wheezing or crackles Abdomen: Nontender, nondistended, BS+ Neuro: AAO x 3, speech is clear, no unilateral weakness or loss of sensation, coordination intact Musculoskeletal: LE edema is present - the surgical wound on the R knee look excellent - L arm is splinted Skin: No acute rashes or ulcers - clean surgical wound Extremities: No clubbing, cyanosis PG Care Time/CCT Total # of Minutes Spent Total Time Spent with Patient: Total time spent is greater than 50% in coordination of care (as documented) at patient's floor/unit and/or counseling patient:
[2019-01-16] MEDS ORDERED: SODIUM CHLORIDE 0.9% 1000ML 1,000 ML IV SCH (22:15)
[2019-01-16] MEDS: MoRPHine SULFATE 4 MG/ML 1 ML CARP\\VIAL IV PRN (22:41)
[2019-01-17] MEDS: OXYCODONE/ACETAMINOPHEN 10-325 TAB PO PRN ×5 (00:11→21:42)
[2019-01-17] MEDS ORDERED: Nursing to Pharmacy Communication ONE ×2 (01:05→06:11)
[2019-01-17 05:58] LABS: Basophils # (auto) 0.03 K/uL (0-0.2); Basophils % (auto) 0.2 %; Eosinophils # (auto) 0.45 K/uL (0-0.5); Eosinophils % (auto) 3.5 %; Hematocrit (blood only) 27.9 % (37-47); Hemoglobin 9.5 g/dL (12.0-16.0); Immature Granulocytes # (auto) 0.05 K/uL (0.00-0.02); Immature Granulocytes % (auto) 0.4 %; Lymphocytes # (auto) 2.55 K/uL (1.2-3.4); Lymphocytes % (auto) 19.6 %; Mean Corpuscular Hgb Conc 34.1 g/dL (32-36); Mean Corpuscular Volume 88.6 fL (80-100); Monocytes # (auto) 0.84 K/uL (0.11-0.59); Monocytes % (auto) 6.5 %; Neutrophils # (auto) 9.06 K/uL (1.4-6.5); Neutrophils % (auto) 69.8 %; Platelet Count 232 K/uL (130-400); RDW Coefficient of Variation 12.5 % (11.5-14.5); RDW Standard Deviation 40.2 fL (36.4-46.3); Red Blood Count 3.15 M/uL (4.2-5.4); White Blood Count 12.98 K/uL (4.8-10.8)
[2019-01-17] MEDS ORDERED: INSULIN ASPART 100 UNITS/ML 3 ML PEN SC SCH ×2 (06:00→07:30)
[2019-01-17 06:16] LABS: Appearance Urine Cloudy (Clear); Bilirubin Urine Negative (Negative); Blood Urine Negative (Negative); Color Urine Yellow; Epithelial Cell Urine Auto >30 /lpf (0-5); Glucose Urine UA Negative (Negative); Ketones Urine Trace (Negative); Leukocyte Esterase Urine Negative (Negative); Nitrite Urine Negative (Negative); Protein Urine Negative (Negative); Specific Gravity Urine 1.027 (1.000-1.030); Urobilinogen Urine Negative (Negative)
[2019-01-17] MEDS: LEVOTHYROXINE SODIUM 112 MCG TABLET PO SCH (06:17)
[2019-01-17 06:26] LABS: RBC Urine Automated 0-4 /hpf (0-4)
[2019-01-17 06:28] LABS: Bacteria Urine Automated 1+ (Negative)
[2019-01-17 06:35] LABS: Calcium 8.3 mg/dl (8.5-10.1); Creatinine Clr Calc Pharmacy 78.3 ml/min; Est GFR (African American) 75.1; Est GFR (Non-African American) 64.8; Magnesium 1.3 mg/dl (1.8-2.4)
[2019-01-17] MEDS: SPIRONOLACTONE 25 MG TAB PO SCH (08:49)
[2019-01-17] MEDS: FERROUS GLUCONATE 324 MG TAB PO SCH ×2 (08:49→17:57)
[2019-01-17] MEDS: dilTIAZem HCL 240 MG CAPCR PO SCH (08:50)
[2019-01-17] MEDS: INSULIN ASPART 100 UNITS/ML 3 ML PEN SC SCH ×4 (08:56→21:18)
[2019-01-17] MEDS: MoRPHine SULFATE 4 MG/ML 1 ML CARP\\VIAL IV PRN ×2 (09:49→22:35)
--- NOTE | 2019-01-17 11:07 | Hospitalist Progress Note ---
Date of Service January 17, 2019 Assessment & Plan (1) Humeral fracture: Patient's description of her fall sounds mechanical. Was trying to maneuver in her home with her walker and felt herself falling. Was trying to avoid hitting her knee and went down on her arm. She did not hit her head Consulted ortho - to splint this afternoon Pain control PT/OT evals (2) Hypothyroidism: continue synthroid (3) Diabetes mellitus, type II: bsgs ac & hs, ss (4) Hypertension: cont Diltiazem, Losartan (5) Hematuria: She is on BID ASA post-op. U/A - culture pending - If there is hematuria and no infection, she should likely have a urology evaluation going forward. (6) History of total knee arthroplasty: She underwent a R TKA 01/[address] Gar and was DCd 01/16. Continue ASA BID for DVT proph (7) Hypomagnesemia: Magnesium 1.3 - replace with 2g IV mag and will start po bid repeat mag am (8) DVT prophylaxis: SCDs, ASA bid (9) Edema: Continue spironolactone Supervising Physician Co-Signing Physician Notes I supervised Krista Mina NP on this patient's care. I discussed the plan of care with her with the plan being as written in her note except for any following changes/exceptions: None. Subjective Ms. Almendarez'deniz pain is controlled. Denies numbness or tingling in her left fingers. No other complaints Review of Systems Review of Systems: All systems reviewed & are unremarkable except as noted in HPI & below Physical Exam Physical Exam: General: no distress Eyes: normal inspection, PERLL Respiratory: chest non tender, clear to auscultation, normal breath sounds, no respiratory distress, no accessory muscle use Cardiac: regular rate and rhythm, no rub or gallop, no murmur, no edema, no jvd GI/: active bowel sounds, no abd pain or tenderness, soft, non distended Extremities: normal range of motion, normal strength, non tender Neuro/Psych: alert and oriented x 3, normal mood and affect Skin: normal color, dry, left fingers warm, pink, immediate cap refill, right knee incision well approximated, no drainage, chantale intact Results & Data Vital Signs (Past 12 Hours) Vital Signs Temp Pulse Pulse Resp BP Pulse Ox 01/17/19 08:48 77 108/66 08/05/19 07:54 36.8 C 80 18 117/78 92 PG Care Time/CCT Total # of Minutes Spent Total Time Spent with Patient: Total time spent is greater than 50% in coordination of care (as documented) at patient's floor/unit and/or counseling patient:
[2019-01-17] MEDS: ASPIRIN 81 MG ECTAB PO SCH ×2 (11:10→21:17)
[2019-01-17] MEDS: MAGNESIUM SULFATE / D5W 1 GM/100 ML BAG IV SCH ×2 (12:35→13:19)
--- NOTE | 2019-01-17 14:46 | Orthopedic Consultation ---
Date of Consultation January 17, 2019 Assessment & Plan (1) Humeral fracture: The previous splint was removed. Her elbow was almost in extension in this splint. A new coaptation/posterior splint applied. She's NVI after splinting and said this is the best its felt. We got her a new sling as well. xray's reviewed by Dr. Gar and we'll plan to treat this fx non operatively. I recommend she try sitting upright as much as possible, sleeping with the head of bed elevated some. She can follow up with Dr. Gar in approx 2 weeks for both the humerus fx and TKA. Discharge planning, she'll likely need rehab stay. NWB to [facility]. History of Present Illness Reason for Consultation: Haydee is a 68 y/o female, RHD, 3 days post op from Right TKA. She was discharged yesterday to home. She was walking to sit in a chair and misjudged the distance and fell injuring her left arm. She was seen in [facility] but then came to [facility] for further care. Her knee is doing well. She reports some slight numbness/tingling in her left hand/fingers. No other complaints. Attending Physician: Yefri Salgado MD Allergies Allergy/AdvReac Type Severity Reaction Status Date / Time No Known Allergies Allergy Unknown Verified 01/14/19 08:25 Home Medications Home Medications Medication Instructions Recorded Confirmed Type Glucosamine Chondroitin 1 cap PO BID 12/17/18 01/16/19 History [place]-3 1 cap PO QDL 12/17/18 01/16/19 History Zyrtec 10 mg PO UD PRN 12/17/18 01/14/19 History diltiazem HCl 240 mg PO QAM 12/17/18 01/16/19 History glyburide 5 mg PO BID 12/17/18 01/14/19 History levothyroxine [Synthroid] 112 mcg PO QAM 12/17/18 01/16/19 History losartan 100 mg PO HS 12/17/18 01/16/19 History metformin 1,000 mg PO BID 12/17/18 01/16/19 History spironolactone 25 mg PO BID 12/17/18 01/16/19 History acetaminophen [Tylenol Extra 1,000 mg PO Q8 30 Days #180 tab 08/03/19 08/04/19 Rx Strength] aspirin [Ecotrin Low Strength] 81 mg PO BID 45 Days #90 tab 01/15/19 01/16/19 Rx ferrous gluconate 324 mg PO BIDM 30 Days #60 tab 01/15/19 01/16/19 Rx oxycodone 5 - 10 mg PO Q6H PRN 15 Days #40 01/15/19 01/16/19 Rx tab Patient History Social History Preferred Language: Greek Communication Ability: 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 No drainage. Splint removed from LUE. Some ecchymosis of the upper arm. Skin intact. She is able to flex/ext wrist and fingers appropriately. NVI. Some motion at the fracture site. Results & Data Vital Signs (Past 12 Hours) Vital Signs Temp Pulse Pulse Resp BP Pulse Ox 01/17/19 08:48 77 108/66 01/17/19 07:54 36.8 C 80 18 117/78 92 Diagnostic Findings xrays show a displaced distal 1/3 humeral fracture. PG Care Time/CCT Total # of Minutes Spent Total Time Spent with Patient: Total time spent is greater than 50% in coordination of care (as documented) at patient's floor/unit and/or counseling patient:
[2019-01-17] MEDS: MAGNESIUM OXIDE 400 MG TAB PO SCH (21:17)
[2019-01-17] MEDS: LOSARTAN POTASSIUM 50 MG TAB PO SCH (21:17)
[2019-01-18] MEDS: OXYCODONE/ACETAMINOPHEN 10-325 TAB PO PRN ×5 (04:41→21:06)
[2019-01-18] MEDS: LEVOTHYROXINE SODIUM 112 MCG TABLET PO SCH (06:14)
[2019-01-18] MEDS: ASPIRIN 81 MG ECTAB PO SCH ×2 (08:36→21:07)
[2019-01-18] MEDS: FERROUS GLUCONATE 324 MG TAB PO SCH ×2 (08:37→18:36)
[2019-01-18] MEDS: MAGNESIUM OXIDE 400 MG TAB PO SCH ×2 (08:37→21:07)
[2019-01-18] MEDS: SPIRONOLACTONE 25 MG TAB PO SCH (08:37)
[2019-01-18] MEDS: dilTIAZem HCL 240 MG CAPCR PO SCH (08:41)
[2019-01-18] MEDS: INSULIN ASPART 100 UNITS/ML 3 ML PEN SC SCH ×4 (08:42→21:04)
[2019-01-18 09:06] LABS: Basophils # (auto) 0.04 K/uL (0-0.2); Basophils % (auto) 0.4 %; Eosinophils % (auto) 6.4 %; Hematocrit (blood only) 27.5 % (37-47); Hemoglobin 9.4 g/dL (12.0-16.0); Immature Granulocytes # (auto) 0.03 K/uL (0.00-0.02); Immature Granulocytes % (auto) 0.3 %; Lymphocytes % (auto) 14.5 %; Mean Corpuscular Hgb Conc 34.2 g/dL (32-36); Mean Corpuscular Volume 90.8 fL (80-100); Mean Platelet Volume 9.9 fL (7.4-10.4); Monocytes # (auto) 0.94 K/uL (0.11-0.59); Monocytes % (auto) 8.5 %; Neutrophils # (auto) 7.69 K/uL (1.4-6.5); Neutrophils % (auto) 69.9 %; Platelet Count 254 K/uL (130-400); RDW Coefficient of Variation 12.5 % (11.5-14.5); RDW Standard Deviation 41.1 fL (36.4-46.3); Red Blood Count 3.03 M/uL (4.2-5.4)
[2019-01-18 10:42] LABS: BUN Creatinine Ratio 17.6 (10-20); Calcium 8.4 mg/dl (8.5-10.1); Creatinine Clr Calc Pharmacy 71.2 ml/min; Est GFR (Non-African American) 57.8; Potassium 4.3 mmol/L (3.5-5.1)
--- NOTE | 2019-01-18 11:34 | Progress Note ---
DATE: 01/18/2019 SUBJECTIVE: A 68-year-old white female postop day 4 from a right knee replacement complicated by a fall outside and a humeral diaphyseal fracture which she was just admitted to the hospital yesterday. She is doing okay. We changed her splint yesterday and she seems to be more comfortable. No other complaints. Her knee is sore, but manageable. Her humerus is bothered more than the knee and she rates her pain as 6/10. Denies any chest pain or shortness of breath. OBJECTIVE: VITAL SIGNS: Temperature 36.6. Vital signs stable. GENERAL: Physical examination shows a pleasant, middle-aged female. She is sitting up in her bedside chair, looks pretty comfortable. EXTREMITIES: Examination of the right leg reveals a large soft tissue envelope. Incision is clean, dry and intact. No significant drainage. She is neurologically intact. Examination of the left arm reveals sugar tong splint to be in place. She has got a sling in place. She can flex and extend her fingers and wrist appropriately. She is neurologically intact. ASSESSMENT: A 68-year-old white female postop day 4 from a right total knee replacement complicated by a fall on the outside and readmission for a left humeral diaphyseal fracture. This is a fracture that should heal without surgical intervention. Certainly, it is going to slow her down, unfortunately, from the rehab standpoint with her knee. PLAN: 1. DVT prophylaxis including thigh-high TEDs, SCDs, and aspirin twice a day. 2. PT/OT. She can weightbear as tolerated in the right lower extremity. She is obviously nonweightbearing, very limited use of the left arm using the sling at all times and the coaptation splint. 3. Left humeral diaphyseal fracture. She is in a coaptation splint. We are going to leave her in that for 2 weeks. I will see her back at her 2-week visit for her knee and her humerus and change her to a Fish brace. 4. Medical management as per the medicine service. 5. Disposition: She is orthopedically okay for discharge any time. I will need to see her back 2 weeks from her surgery date. Any questions can be directed to me at [phone].
--- NOTE | 2019-01-18 14:42 | Hospitalist Progress Note ---
Date of Service January 18, 2019 Assessment & Plan (1) Humeral fracture: Patient's description of her fall sounds mechanical. Was trying to maneuver in her home with her walker and felt herself falling. Was trying to avoid hitting her knee and went down on her arm. She did not hit her head Consulted ortho - arm splinted, DVT prophylaxis including thigh-high TEDs, SCDs, and aspirin twice a day. Will need to follow up with Dr. Gar in 2 weeks Pain control PT/OT evals (2) Hypothyroidism: continue synthroid (3) Diabetes mellitus, type II: bsgs ac & hs, ss (4) Hypertension: cont Diltiazem, Losartan (5) Hematuria: She is on BID ASA post-op. U/C -yeast not albicans - will need to follow up with urology (6) History of total knee arthroplasty: She underwent a R TKA 01/[address] Gar and was DCd 01/16. Continue ASA BID for DVT proph (7) Hypomagnesemia: Magnesium 1.3 - replace with 2g IV mag and will start po bid (8) DVT prophylaxis: SCDs, ASA bid (9) Edema: Continue spironolactone Supervising Physician Co-Signing Physician Notes I supervised Krista Mina NP on this patient's care. I discussed the plan of care with her with the plan being as written in her note except for any following changes/exceptions: None. Subjective Pain was 8/10 in knee and arm as I evaluated Ms. Almendarez. She was also a bit nauseas. She is feeling overwhelmed by her recent hospital stays. Review of Systems Review of Systems: All systems reviewed & are unremarkable except as noted in HPI & below Physical Exam 2 Physical Exam: General: no distress Eyes: normal inspection, PERLL Respiratory: chest non tender, clear to auscultation, normal breath sounds, no respiratory distress, no accessory muscle use Cardiac: regular rate and rhythm, no rub or gallop, no murmur, no edema, no jvd GI/: active bowel sounds, no abd pain or tenderness, soft, non distended Extremities: normal range of motion, normal strength, non tender Neuro/Psych: alert and oriented x 3, normal mood and affect Skin: normal color, dry, left fingers warm and pink Results & Data Vital Signs (Past 12 Hours) Vital Signs Temp Pulse Pulse Resp BP Pulse Ox 01/18/19 08:41 101 H 133/76 01/18/19 07:07 36.6 C 91 H 16 110/76 94 PG Care Time/CCT Total # of Minutes Spent Total Time Spent with Patient: Total time spent is greater than 50% in coordination of care (as documented) at patient's floor/unit and/or counseling patient:
[2019-01-18] MEDS: MoRPHine SULFATE 4 MG/ML 1 ML CARP\\VIAL IV PRN ×2 (16:03→20:27)
[2019-01-18] MEDS ORDERED: MoRPHine SULFATE 2 MG/ML CARP IV STA (18:29)
[2019-01-18] MEDS: LOSARTAN POTASSIUM 50 MG TAB PO SCH (21:07)
[2019-01-19] MEDS: LEVOTHYROXINE SODIUM 112 MCG TABLET PO SCH (05:01)
[2019-01-19] MEDS: OXYCODONE/ACETAMINOPHEN 10-325 TAB PO PRN ×2 (07:45→11:53)
[2019-01-19] MEDS: ASPIRIN 81 MG ECTAB PO SCH (08:49)
[2019-01-19] MEDS: MAGNESIUM OXIDE 400 MG TAB PO SCH (08:50)
[2019-01-19] MEDS: SPIRONOLACTONE 25 MG TAB PO SCH (08:51)
[2019-01-19] MEDS: dilTIAZem HCL 240 MG CAPCR PO SCH (08:52)
[2019-01-19] MEDS: FERROUS GLUCONATE 324 MG TAB PO SCH (08:52)
[2019-01-19] MEDS: INSULIN ASPART 100 UNITS/ML 3 ML PEN SC SCH ×2 (08:57→12:06)
[2019-01-19 10:35] LABS: Hematocrit (blood only) 30.3 % (37-47); Hemoglobin 10.2 g/dL (12.0-16.0); Mean Corpuscular Hgb Conc 33.7 g/dL (32-36); Mean Corpuscular Volume 91.3 fL (80-100); Mean Platelet Volume 9.8 fL (7.4-10.4); Platelet Count 298 K/uL (130-400); RDW Coefficient of Variation 12.8 % (11.5-14.5); RDW Standard Deviation 42.1 fL (36.4-46.3); Red Blood Count 3.32 M/uL (4.2-5.4)
[2019-01-19 11:06] LABS: BUN Creatinine Ratio 19.9 (10-20); Calcium 8.9 mg/dl (8.5-10.1); Creatinine Clr Calc Pharmacy 84.8 ml/min; Est GFR (African American) 82.8; Est GFR (Non-African American) 71.4; Potassium 5.1 mmol/L (3.5-5.1)
--- NOTE | 2019-01-19 11:30 | Discharge Summary ---
Date of Service January 19, 2019 Admission HPI Per Admitting Provider 68 y/o F Hx DM II, HTN, LE edema, hypothyroidism, osteoarthritis, morbidly obese. She underwent a R TKA 01/14 and was DCd 01/16. She took a few steps at home, lost her balance and fell on her L arm sustaining a L humeral fracture. As a result of this, she cannot mobilize as she is requiring a walker for balance and mobility following her TKA. She was transferred from [place] where she had initially presented and her chief complaint on arrival is pain in her arm, back and R knee. Nursing reported some blood in her urine after she had used the commode. PMH: 1) Lumbar stenosis 2) Morbid obesity BMI > 50 3) Hypothyroidism 4) HTN 5) LE edema 6) Osteoarthritis 7) DM II 8) SBO - incarcerated hernia and perforated viscus 2016 Surgical: 1) Lumbar surgery 2014 2) Small bowel resection 2016 Social: Does not drink or smoke Family: Father colon CA Mother pancreatic CA Principal Diagnosis Humeral fracture Discharge Exam Constitutional WD/WN, vitals as above Respiratory normal respiratory effort, lungs clear to auscultation Cardiovascular RRR, no murmur, no edema Gastrointestinal (Abdomen) Inspection/Auscultation: abdomen normal to inspection and normal bowel sounds; abdomen not distended Percussion/Palpation: abdomen soft; abdomen nontender Musculoskeletal no cyanosis or clubbing, extremities motor strength 5/5 Skin [place] in knee intact and well approximated, no drainage. Fingers distal to fracture warm and pink. Discharge Data Allergies Allergy/AdvReac Type Severity Reaction Status Date / Time No Known Allergies Allergy Unknown Verified 01/14/19 08:25 Consultations 01/16/19 22:01 Consult Orthopedic Surgery Routine Hospital Course (1) Humeral fracture: Patient's description of her fall sounds mechanical. Was trying to maneuver in her home with her walker and felt herself falling. Was trying to avoid hitting her knee and went down on her arm. She did not hit her head Consulted ortho - arm splinted, DVT prophylaxis including thigh-high TEDs, SCDs, and aspirin twice a day. Will need to follow up with Dr. Gar in 2 weeks Pain control PT/OT evals (2) Hypothyroidism: continue Synthroid (3) Diabetes mellitus, type II: bsgs ac & hs, ss - resume oral medications outpatient (4) Hypertension: cont Diltiazem, Losartan (5) Hematuria: No cordelia blood in urine at this time, U/A without RBCs She is on BID ASA post-op. U/C -yeast not albicans - no dysuria or other urinary complaints, follow up with her primary (6) History of total knee arthroplasty: She underwent a R TKA 01/[address] Gar and was DCd 01/16. Continue ASA BID for DVT proph (7) Hypomagnesemia: Magnesium 1.3 - replace with 2g IV mag and po while inpatient (8) DVT prophylaxis: SCDs, ASA bid (9) Edema: Continue spironolactone Total Time Total Time Spent Total Time Spent (In Minutes): greater than 30 minutes Discharge Plan Discharge Items Patient Disposition: Transfer Inpatient Rehab Fac Reason For Visit: DISTAL HUMERUS FRACTURE Discharge Diagnosis: Right Knee Replacement Left Humeral Diaphyseal Fracture Discharge Goals: Decrease discomfort, Improve disease control and Therapeutic intervention Activity: Per 'Additional Instructions' section Weightbearing: Right weightbearing Non-emergency contact: Surgeon Call non-emergency contact if: you have any medication questions Follow-up/Referrals: Rohit Cole MD [Primary Care Provider] - Diet: Carb Consistent or DM2 Addtl Provider Instructions: Please follow up with your primary care provider concerning hematuria (blood in urine) on admission. Keep Sling and Splint on at all times until return to clinic appointment. Try to keep Head of Bed up to at least 30 degrees at all times while in bed. ACTIVITY RECOMMENDATIONS: Physical Therapy: * You will go to physical therapy three times each week for four to six weeks after your surgery in order to regain your knee range of motion and to retrain your knee to work properly. * It is just as important to make sure you are getting your knee perfectly straight as it is to regain your knee bend. * Taking a pain pill an hour before therapy can help you have a more productive and comfortable therapy session. Home Exercise: * You were shown a series of exercises (heel props, heel slides, etc.) in the hospital. Do these exercises three to four times each day including the exercises you were shown in physical therapy. Walking: * Get up and walk several times each day. For the first four weeks, try not to stand or walk for more than one hour at a time. If you do stand or walk for more than one hour, you will not hurt anything, but your knee and leg will likely swell. * As you feel comfortable, you may change from the walker or crutches to a cane and then to independent walking. MEDICATIONS: The most common side effects of pain medicine and iron are nausea and constipation. If nausea or constipation is too much of a problem or if you have any questions about your new medicines or doses, call [facility] at . We will try to help you manage these issues. "VERY IMPORTANT TO READ AND REVIEW" Pain: * The immediate post-operative period after knee replacement surgery is often quite painful. * You are given a prescription for pain medicine. You should take it, as directed, when you need it, especially before physical therapy and before going to bed. Pain that interferes with sleep is very common and can last several months. * You will likely need pain medicine for the first four to six weeks. It will not stop all of the pain. The pain will lessen and as you feel better, you may change to milder pain medicine such as Tylenol. * The most common side effects of pain medicine are nausea and constipation, so don't take more than you need. SPECIAL CARE INSTRUCTIONS: TEDs/Elastic Stockings: * The white elastic stockings help limit swelling and prevent blood clots from forming in your legs. The more you wear them, the more they work. * Wear them for six weeks after knee replacement surgery and four weeks after partial knee replacement. Prevention of Infection: * Take antibiotics one hour before any dental cleaning, dental work, urological procedure, gastrointestinal procedure or any invasive surgery in order to prevent your new joint from getting infected. * You may get the antibiotics from the doctor performing the procedure or you may call our office at before and we will call in a prescription to the pharmacy of your choice. Things to Watch For: * Drainage from the incision site that occurs more than one week after your surgery. * Severely increased knee/leg pain or swelling. * Increased redness at the incision site. * Fever above 102 degrees Fahrenheit. * Unusual chest pain or shortness of breath. * Unusual pain or burning with urination. Call [facility] at with any of the above problems or if you have any questions about your medicines or recovery. FOLLOW UP VISIT: Make an appointment to see your doctor for approximately two weeks after surgery for a progress check and staple removal by calling the office at . Prescriptions: New oxycodone-acetaminophen 10-325 mg Tablet 1 tab PO Q4H PRN (Reason: pain) Qty: 15 RF: 0 ferrous gluconate 324 mg (38 mg iron) Tablet 324 mg PO BIDM Qty: 60 RF: 0 Continued glyburide 5 mg Tablet 5 mg PO BID RF: 0 diltiazem HCl 240 mg Capsule,Extended Release 24hr 240 mg PO QAM RF: 0 spironolactone 25 mg Tablet 25 mg PO BID RF: 0 losartan 100 mg Tablet 100 mg PO HS RF: 0 metformin 500 mg Tablet Extended Release 24 Hr 1,000 mg PO BID RF: 0 levothyroxine [Synthroid] 112 mcg Tablet 112 mcg PO QAM RF: 0 Zyrtec 10 mg Capsule 10 mg PO UD PRN (Reason: SEASONAL ALLERGIES) RF: 0 Robert-3 350 mg-235 mg- 90 mg-597 mg Capsule,Delayed Release(Dr/Ec) 1 cap PO QDL RF: 0 Glucosamine Chondroitin 550-30-1 mg Capsule 1 cap PO BID RF: 0 ferrous gluconate 324 mg (38 mg iron) Tablet 324 mg PO BIDM 30 Days Qty: 60 RF: 0 acetaminophen [Tylenol Extra Strength] 500 mg Tablet 1,000 mg PO Q8 30 Days Qty: 180 RF: 0 aspirin [Ecotrin Low Strength] 81 mg Tablet,Delayed Release (Dr/Ec) 81 mg PO BID 45 Days Qty: 90 RF: 0 Discontinued oxycodone 5 mg Tablet 5 - 10 mg PO Q6H PRN (Reason: pain) 15 Days Qty: 40 RF: 0 Stand-Alone Forms: [facility] Discharge Orders: Discharge Order (Routine); Ordered 01/19/19 Ordered By: Krista Mina Skilled Items Patient informed of condition?: Yes DNR: No Discharge Level of Care: Acute rehab Communicable Disease: No Discharge Prognosis: Stable Admission Data Admit Date/Time: 01/16/19 20:50 Attending Provider: Yefri Salgado Admit Provider: Rell Valles Primary Care Provider: Rohit Cole Other Providers: Adrián Gar Service: Medical
== END 2019-01-19 12:20 | DRG 563 ==
LOC: SUATTDRO 20:50 → 3N 20:50

== ENCOUNTER 2019-02-09 10:02 | Inpatient (IN) ==
--- NOTE | 2019-02-08 12:58 | Anesthesiology Consultation ---
Date of Service February 08, 2019 Assessment & Plan (1) Encounter for pre-operative examination: Chart Review Chart Review: Acceptable Risk for Surgery and Patient NOT seen in Pre Admission Testing Please check potassium on day of procedure. Consults Requested none History Surgery Operation Date: 02/09/19 13:00 Proposed Procedures p Left Humerus Open Reduction Internal Fixation - Adrián Gar MD Allergies Allergy/AdvReac Type Severity Reaction Status Date / Time No Known Allergies Allergy Unknown Verified 02/08/19 12:39 Medications Home Medications Medication Instructions Recorded Confirmed Last Taken [place]-3 1 cap PO QDL 12/17/18 02/08/19 01/16/19 11:01 Zyrtec 10 mg PO UD PRN 12/17/18 02/08/19 01/13/19 18:00 diltiazem HCl 240 mg PO QAM 12/17/18 02/08/19 01/16/19 08:43 glyburide 5 mg PO BID 12/17/18 02/08/19 01/13/19 17:00 levothyroxine [Synthroid] 112 mcg PO QAM 12/17/18 02/08/19 01/16/19 08:43 losartan 100 mg PO HS 12/17/18 02/08/19 01/15/19 20:30 metformin 1,000 mg PO BID 12/17/18 02/08/19 01/16/19 08:43 aspirin [Ecotrin Low Strength] 81 mg PO BID 45 Days #90 tab 01/15/19 02/08/19 01/16/19 08:43 ferrous gluconate 324 mg PO BIDM 30 Days #60 tab 01/15/19 02/08/19 01/16/19 08:42 acetaminophen [Tylenol] 650 mg PO Q8H PRN 02/08/19 02/08/19 Unknown cephalexin 500 mg PO TID 02/08/19 02/08/19 Unknown oxycodone 5 - 10 mg PO Q6H PRN 02/08/19 02/08/19 Unknown Past Medical History Medical History Diabetes NIDDM Hypertension Hypothyroid Morbid obesity Osteoarthritis Past Family History Family History Father Family history of pancreatic cancer Other Family history of colon cancer in mother Past Surgical History Surgical History History of back surgery no hardware History of colonoscopy History of intestinal surgery 2/2 small intestine perforation History of total knee replacement RIGHT Social History Smoking Status: Never smoker Hx Alcohol Use: Yes alcohol intake frequency: holidays/special occasions only Hx Substance Use: No substance use type: does not use Testing Laboratory Results Laboratory Tests 12/23/18 01/19/19 01/19/19 13:05 10:22 10:22 WBC 10.20 Hgb 10.2 L Plt Count 298 PT 10.8 INR 1.1 APTT 25.1 Sodium 134 L Potassium 5.1 D Chloride 100 Carbon Dioxide 26 BUN 17 Creatinine 0.84 Glucose 247 H Electrocardiogram Date: 12/23/18 Sinus rhythm with 1st degree A-V block, rate 98 bpm Otherwise normal ECG When compared with ECG of 22-JUN-2016 10:01, Premature atrial complexes are no longer Present IL interval has increased Confirmed by Hair Paulino ([id number]) on 12/24/2018 5:12:25 AM Chest X-Ray Date: 12/23/18 Findings: + NAD Stress Test Date: 02/07/15 Type: DSE Negative DSE/stress EKG for ischemia at 87% MPHR. No chest pain. No significant valvular disease. Mild cLVH.
--- NOTE | 2019-02-08 21:05 | History and Physical Report ---
DATE OF ADMISSION: 02/09/2019 CHIEF COMPLAINT: Left arm injury from a fall. HISTORY OF PRESENT ILLNESS: The patient is a 68-year-old female who underwent a right knee replacement about 3-1/2 weeks ago. She was discharged to home and fell almost immediately upon going home. She was readmitted to the hospital with a distal humerus fracture. She was put in a coaptation splint and then was at [facility] for a while. She had a lot of difficulty with this arm fracture. Knee has been doing okay. She had a little bit of drainage, but really not much pain. Her arm has been a different story. She has had trouble keeping the Fish brace on. It slides down. This has caused deformity. The arm is moving and she is miserable in pain. She would really like to try a different treatment. PAST MEDICAL HISTORY: 1. Hypertension. 2. Diabetes x10 years. 3. Hypothyroidism. 4. Morbid obesity with a BMI of 53. 5. Back and spine arthritis. PAST SURGICAL HISTORY: 1. Back surgery 4 years ago. 2. Abdominal surgery 2 years ago. 3. Right knee replacement 3-1/2 weeks out. ALLERGIES: None. CURRENT MEDICATIONS: 1. Glyburide. 2. [place]-3. 3. Glucosamine. 4. Losartan. 5. Synthroid. 6. Metformin. 7. B complex. 8. Zyrtec. 9. Spironolactone. 10. Baby aspirin twice a day. SOCIAL HISTORY: A 68-year-old female. She is from [place]. She is a retired teacher. She is . Does not smoke. FAMILY HISTORY: Noncontributory. REVIEW OF SYSTEMS: Significant for diabetes. Denies any current chest pain or shortness of breath. No signs of DVT or PE. No known bleeding problems. PHYSICAL EXAMINATION: GENERAL: Obese, middle-aged female. Very pleasant. HEENT: Benign. NECK: Supple, no lymphadenopathy. LUNGS: Clear to auscultation. HEART: Regular rate and rhythm. ABDOMEN: Soft, nontender, nondistended. EXTREMITIES: Grossly neurovascularly intact except as follows: Examination of the right leg reveals along anterior knee incision, she has got just a little opening with a little bit of serosanguineous drainage anteriorly. No major cellulitis. She is neurologically intact. Examination of the left arm reveals a large soft tissue envelope. She does have visible deformity to the arm with a varus alignment. Her fracture brace continues to fall down even shortly after we replaced it. She does have some swelling in her hand. She can dorsiflex and palmar flex her wrist appropriately. Nerves are working appropriately. X-RAYS: X-ray of left humerus reviewed. It shows a spiral distal humerus fracture with marked displacement. There has been no interval improvement and displacement. There is probably 2-3 cm of separation between the shaft and the distal fracture fragment. ASSESSMENT: A 68-year-old female 3-1/2 weeks out from right total knee replacement, doing okay from the knee standpoint, but has this displaced humerus fracture from a fall and not doing well from that. It is painful. Her large soft tissue envelope really makes a splinting difficult. PLAN: We talked about treatment options and she is really begging to have something done with her arm. Certainly this is an idea, but considering the displacement, I think it is unlikely this is going to heal. We are going to take her to the operating room and do ORIF of her left distal humerus fracture. The risks and benefits of this procedure were explained to the patient including but not limited to DVT, PE, , infection, neurological injury, vascular injury, bleeding problem, pain, limited range of motion, stiffness, persistent pain, nonunion, etc. The patient understands and desires to proceed. Informed consent was obtained. We will keep her on a baby aspirin twice a day. We will continue the wound care to her right knee. We will probably keep her in the hospital overnight and discharge the following day in sling.
[~2019-02-09 10:02] MED LIST changes: -BUPIVACAINE 0.5 % 5 MG/1 ML PF 10ML VIAL ONE; -BUPIVACAINE LIPOSOME/PF 266 MG, BUPIVACAINE/EPINEPHRINE 50 ML, SODIUM CHLORIDE 0.9% 30 ... INFIL SCH; -LACTATED RINGER'S 1,000 ML IV SCH; -LR 15ML/HR IV SCH; -LR 500ML BOLUS, THEN 15ML/HR IV SCH; +LR 60ML/HR IV SCH; -ROPIVACAINE 0.5% 5 MG/ML 30 ML VIAL ONE; -SCOPOLAMINE 1.5 MG TDSY TD SCH; +SODIUM CHLORIDE 0.9% 1000ML IV SCH; -TRANEXAMIC ACID 1,000 MG **IV Intra-op IV SCH; -TRANEXAMIC ACID 1,000 MG **IV Pre-op IV SCH
[2019-02-09 11:19] LABS: BUN Creatinine Ratio 20.7 (10-20); Calcium 8.8 mg/dl (8.5-10.1); Est GFR (Non-African American) 72.5; Potassium 3.6 mmol/L (3.5-5.1)
[2019-02-09] MEDS ORDERED: ePHEDrine sulfate 50 MG/ML AMP IV PRN (12:10)
[2019-02-09] MEDS ORDERED: ATROPINE SULFATE 0.1 MG/ML 10ML SYR IV PRN (12:10)
[2019-02-09] MEDS ORDERED: DEXAMETHASONE SOD INJ 4 MG/ML VIAL ONE (12:13)
[2019-02-09] MEDS ORDERED: LIDOCAINE HCL 2% 2 ML VIAL/AMP(20MG/ML) INFIL ONE (12:13)
[2019-02-09] MEDS ORDERED: ROCURONIUM BROMIDE 10 MG/ML 5 ML VIAL ONE ×4 (12:13→17:18)
[2019-02-09] MEDS ORDERED: MIDAZOLAM HCL 1 MG/ML 2ML VIAL ONE (12:13)
[2019-02-09] MEDS ORDERED: PROPOFOL IV EMULSION 10 MG/ML 20 ML VIAL IV ONE (12:13)
[2019-02-09] MEDS ORDERED: fentaNYL citrate 100 MCG/2 ML VIAL ONE ×4 (12:13→18:00)
[2019-02-09] MEDS ORDERED: ONDANSETRON INJ 2 MG/ML 2 ML VIAL ONE ×2 (12:13→18:40)
[2019-02-09] MEDS ORDERED: BUPIVACAINE/EPINEPHRINE 0.5% MPF 1:200,000 30 ML VIAL ONE (12:26)
[2019-02-09] MEDS ORDERED: ROPIVACAINE 0.5% 5 MG/ML 30 ML VIAL ONE (13:37)
--- NOTE | 2019-02-09 13:47 | History & Physical Bridge Note ---
Date of Service February 09, 2019 History & Physical Bridge Note I have examined the patient, reviewed the History & Physical and in the interval since the performance of the History & Physical I have noted the following changes of clinical significance: no changes noted
[2019-02-09] MEDS ORDERED: SODIUM CHLORIDE 0.9% 250 ML IV PRN (16:27)
[2019-02-09 16:59] LABS: Hemoglobin 9.5 g/dL (12.0-16.0)
[2019-02-09] MEDS ORDERED: NEOSTIGMINE METHYLSULFATE 5 MG/5 ML SYR ONE (17:17)
[2019-02-09] MEDS ORDERED: GLYCOPYRROLATE 0.2 MG/ML VIAL ONE (17:17)
[2019-02-09] MEDS ORDERED: CEFAZOLIN 250 MG/ML 1 GM VIAL ONE (17:17)
[2019-02-09] MEDS ORDERED: CEFAZOLIN 1000MG 1,000 MG/7.5 ML SYR IV STA (17:17)
--- NOTE | 2019-02-09 17:59 | Fluoroscopy Report ---
FL humerus LT 2V HISTORY: 68 years-old Female LEFT HUMERUS ORIF acute left humerus fracture COMPARISON: Left humerus radiograph 02/07/2019 TECHNIQUE: 5 spot fluoroscopic images of the left humerus were obtained utilizing 11.0 seconds fluoro scopy time FINDINGS: Plate and screw fusion hardware of the left humerus is noted with fixation of the previously describe d acute displaced distal humeral fracture. There is improved near anatomic alignment. Degenerative ch anges of the elbow. Expected postsurgical soft tissue swelling and deep tissue air about the left upp er arm. IMPRESSION: Fluoroscopic assistance as above. Please see operative report for further details. The above report was generated using voice recognition software. It may contain grammatical, syntax o r spelling errors. Electronically signed by: Cristopher Tripathi M.D. 02/09/2019 5:58 PM
--- NOTE | 2019-02-09 18:18 | Post Operative Brief Note ---
PG Immediate Post Op with CF Date of Surgery February 09, 2019 Pre & Post Diagnosis Operation Date: 02/09/19 13:00 Pre-Op Diagnosis: LEFT HUMERUS FRACTURE Post-Op Diagnosis: LEFT HUMERUS FRACTURE Procedure Operation Date: 02/09/19 13:00 Actual Procedures p Left Humerus Open Reduction Internal Fixation(Left) - Adrián Gar MD Surgeon Adrián Gar MD [employer], PAC Estimated Blood Loss 500 Findings Consistent with Post-Op Diagnosis Fluids 1200 cc Specimens Specimen Description: None per surgeon Drains Velazquez Catheter (Inserted by Kirit Watkins) Anesthesia Type General Complications none Disposition Accompanied Patient To Recovery: Yes Disposition: Recovery Room
[2019-02-09] MEDS ORDERED: HYDROmorphone INJ 2 MG/ML SYR/VIAL ONE (18:40)
[2019-02-09] MEDS: HYDROmorphone INJ 2 MG/ML SYR/VIAL IV PRN ×3 (18:53→19:09)
--- NOTE | 2019-02-09 19:24 | Anesthesiology Progress Note ---
Date of Service February 09, 2019 Anesthesia Post Procedure Vital Signs Vital Signs: Temp Pulse Pulse Resp BP Pulse Ox 02/09/19 19:05 70 12 131/79 100 02/09/19 18:55 81 12 120/85 100 02/09/19 18:45 85 12 130/81 100 02/09/19 18:35 80 12 141/85 H 100 02/09/19 18:25 85 12 119/69 100 02/09/19 18:19 97.2 F L 90 19 130/88 100 02/09/19 11:20 98.2 F 77 20 114/73 99 Pain Intensity Left Shoulder: Pain Intensity: 10 Transfer of Care Handoff Completed per policy Notes Mental Status: alert / awake / arousable and participated in evaluation Patient Amnestic to Procedure: Yes Nausea / Vomiting: adequately controlled Pain: adequately controlled Airway Patency, RR, SpO2: stable & adequate BP & HR: stable & adequate Hydration State: stable & adequate Anesthetic Complications: no major complications apparent and Pt Satisfied with anesthetic care
[2019-02-09] MEDS ORDERED: ONDANSETRON INJ 2 MG/ML 2 ML VIAL IV PRN (19:54)
[2019-02-09] MEDS ORDERED: CARBOHYDRATES FOR HYPOGLYCEMIA PO PRN (19:54)
[2019-02-09] MEDS ORDERED: ALUMINUM/MAGNESIUM SUSP 30 ML UDC PO PRN (19:54)
[2019-02-09] MEDS ORDERED: DEXTROSE 50% 50 ML SYRINGE IV PRN (19:54)
[2019-02-09] MEDS ORDERED: METOCLOPRAMIDE HCL INJ 5 MG/ML 2 ML VIAL IV PRN (19:54)
[2019-02-09] MEDS ORDERED: GLUCOSE 10 TABS/TUBE PO PRN (19:54)
[2019-02-09] MEDS ORDERED: CETIRIZINE HCL 10 MG TABLET PO PRN (19:54)
[2019-02-09] MEDS ORDERED: NALOXONE HCL 0.4 MG/1 ML VIAL/CARP IV PRN (19:54)
[2019-02-09] MEDS ORDERED: MAGNESIUM HYDROXIDE SUSP 30 ML UDC PO PRN (19:54)
[2019-02-09] MEDS ORDERED: GLUCAGON FOR INJ 1 MG VIAL SQ PRN (19:54)
[2019-02-09] MEDS ORDERED: PHARMACY GLYCEMIC MGMT CONSULT STA (19:54)
[2019-02-09] MEDS ORDERED: BISACODYL 10 MG SUPP PR PRN (19:54)
[2019-02-09] MEDS ORDERED: GLUCOSE 40% GEL 15 GM TUBE PO PRN (19:54)
[2019-02-09] MEDS ORDERED: PHARMACY GLYCEMIC MGMT CONSULT PRN (20:06)
[2019-02-09] MEDS: SODIUM CHLORIDE 0.9% 1000ML 1,000 ML IV SCH (20:30)
[2019-02-09] MEDS: KETOROLAC TROMETHAMINE 15 MG/ML VIAL IV SCH (20:30)
[2019-02-09] MEDS: TAPENTADOL HCL ER 50 MG TABCR PO SCH (20:30)
[2019-02-09] MEDS ORDERED: ASPIRIN 81 MG ECTAB PO SCH (21:00)
[2019-02-09] MEDS ORDERED: glyBURIDE 5 MG TAB PO SCH (21:00)
[2019-02-09] MEDS ORDERED: SENNA 8.6 MG TAB PO SCH (21:00)
[2019-02-09] MEDS ORDERED: LOSARTAN POTASSIUM 50 MG TAB PO SCH (21:00)
[2019-02-09] MEDS: CEFAZOLIN 2000MG 2,000 MG/15 ML SYR IV SCH (21:54)
[2019-02-09] MEDS: ASPIRIN 81 MG ECTAB PO SCH (21:57)
[2019-02-09] MEDS: ACETAMINOPHEN 500 MG TAB PO SCH (21:58)
[2019-02-09] MEDS: DOCUSATE SODIUM 100 MG CAP PO SCH (22:00)
[2019-02-09] MEDS: OXYCODONE HCL IR 5 MG TAB (IMMEDIATE RELEASE) PO PRN (22:11)
[2019-02-09] MEDS: INSULIN ASPART 100 UNITS/ML 3 ML PEN SC SCH (22:40)
--- NOTE | 2019-02-09 23:35 | Operative Report ---
DATE OF OPERATION: 02/09/2019 PREOPERATIVE DIAGNOSIS: Left displaced distal humerus fracture. POSTOPERATIVE DIAGNOSIS: Left displaced distal humerus fracture. PROCEDURE PERFORMED: Open reduction and internal fixation of left distal humerus fracture. COMPLICATIONS: None. ESTIMATED BLOOD LOSS: 500 mL. FLUID REPLACEMENT: 1200 mL crystalloid fluid replacement. ANESTHESIA: General. SPECIMENS: None. OPERATIVE INDICATIONS: The patient is a 68-year-old female who is now about 3-1/2 weeks out from a right knee replacement. She was discharged to home and fell shortly after going home. She had a distal humerus fracture and was readmitted to the hospital. She was put in a coaptation splint and alignment initially looked okay. We then switched to a Fish brace, and over the past several weeks, the alignment just gotten worse. The fracture was markedly displaced. Due to her large soft tissue envelope, it was very difficult to brace her and the brace continued to follow down, and she is markedly debilitated by this. We elected to proceed with surgical treatment. Of note, this patient is morbidly obese with a BMI of 54, which made the surgery extremely difficult. She also had extensive bone forming already in the brachialis muscle. OPERATIVE IMPLANTS: Operative implants consisted of: 1. A Synthes 9-hole 4.5 narrow stainless steel locking plate. 2. A 4.5 fully threaded cortical screws x4. 3. A 5.0 locking screws x4. 4. A 3.5 cortical screw x1. OPERATIVE PROCEDURE: The patient was taken to the operating room, identified and placed on the operating table in supine position. All contact areas were appropriately padded. IV antibiotics were provided by anesthesia team. A general anesthetic was implemented by anesthesia team. I then removed the splint from the left arm. Due to the large soft tissue envelope, she did have some kind of maceration in the antecubital fossa. There were no signs of active infection. A bump was placed underneath the left shoulder. We then scrubbed the left arm with Hibiclens, prepped her with ChloraPrep and draped the left arm in a normal sterile fashion. An anterolateral approach to the left humerus was then performed through an incision over the lateral aspect of the elbow just anterior to the epicondyle and extending proximally to the deltoid insertion area. Sharp dissection was carried through subcutaneous tissue down to the muscle. I then identified the muscle envelope. I very carefully dissected off the wrist extensor muscles off the lateral aspect of the humerus. We spent quite a bit of time looking for the radial nerve. I eventually identified the radial nerve right at the fracture site. The radial nerve was intact, but probably had some degree of stretch injury. Once again, this was right at the fracture site, right at the point of the fracture. We spent quite a bit of time dissecting nerve out proximally and distally to allow us to repair this fracture. The fracture had shortened. There was quite a bit of heterotopic bone along the humerus, particularly in the proximal segment and then also in the brachialis distally. I spent quite a bit of time excising some of this bone, particularly in the brachialis in order to allow exposure and reduction. I had to free up both the fracture ends. I had to use a rongeur to clean the fracture ends to back to a more lower [place] tissue. Once I was able to do this, I was able to nearly anatomically realign this fracture. I held her with reduction clamp. I placed a single 3.5 cortical lag screw across the fracture site from anterior to posterior. All this was done by taking great care to protect the radial nerve. We did have to mobilize this as all her soft tissues were contracted and it seemed like the nerve was even under tension with attempted reduction. I then contoured a 9-hole 4.5 narrow Synthes locking plate to the anterolateral aspect of the humerus. It was fixed proximally with two 4.5 fully threaded cortical screws and then distally with two 4.5 fully threaded cortical screws. I then placed two 5.0 locking screws proximally and then 2 similar screws distally. One of the cortical screws through the plate was placed in a lag fashion across the fracture site. X-ray was brought in. The screw lengths were all appropriately positioned. I palpated the screws to make sure they were not irritating any important soft tissues. Final x-rays were obtained. Attention was then drawn toward closing. The wound was irrigated with copious amounts of normal saline. I did inject locally with about 20 mL of 0.5% Marcaine with epinephrine. We did this around the radial nerve area because there were some bleeders, though I could not comfortably get around the nerve. The fascia was then closed over the lateral aspect of the humerus with 0 Vicryl suture in a [id number] fashion. The subcutaneous tissue was then closed with #2 Dexon suture in a buried interrupted fashion. Skin was closed with skin chantale. The arm was then cleaned and dried and a sterile dressing with Xeroform, 4 x 4's, and sterile Op-Site was applied. The patient was then placed in a sling. She was brought out of general anesthesia and transferred to the recovery room in stable condition. The patient tolerated the procedure well with no complication. All needle and sponge counts were correct at the end of the operation. We did place this plate underneath the radial nerve. The radial nerve crossed the plate from the 4th to the 5th hole of the plate proximally. We did dissect this nerve out and I do not doubt there was some degree of stretch injury to this nerve. The nerve was intact upon closing. Once again, the nerve had crossed the plate between the 4th and the 5th hole beginning from the counting proximally. I attest to the content of the Intraoperative Record and any orders documented therein. Any exception s are noted below.
[2019-02-10] MEDS: HYDROmorphone INJ 0.5 MG/0.5 ML SYR IV PRN ×2 (00:49→12:10)
[2019-02-10] MEDS: KETOROLAC TROMETHAMINE 15 MG/ML VIAL IV SCH ×2 (03:22→08:25)
[2019-02-10] MEDS: SODIUM CHLORIDE 0.9% 1000ML 1,000 ML IV SCH (04:22)
[2019-02-10 05:39] LABS: Hematocrit (blood only) 24.9 % (37-47); Hemoglobin 8.4 g/dL (12.0-16.0); Mean Corpuscular Hemoglobin 30.8 pg (25-34); Mean Corpuscular Hgb Conc 33.7 g/dL (32-36); Mean Corpuscular Volume 91.2 fL (80-100); Platelet Count 278 K/uL (130-400); RDW Coefficient of Variation 13.7 % (11.5-14.5); RDW Standard Deviation 45.1 fL (36.4-46.3); Red Blood Count 2.73 M/uL (4.2-5.4)
[2019-02-10] MEDS: CEFAZOLIN 2000MG 2,000 MG/15 ML SYR IV SCH (05:48)
[2019-02-10] MEDS: ACETAMINOPHEN 500 MG TAB PO SCH (05:49)
[2019-02-10 06:10] LABS: BUN Creatinine Ratio 25.5 (10-20); Calcium 6.9 mg/dl (8.5-10.1); Creatinine Clr Calc Pharmacy 91.3 ml/min; Est GFR (African American) 98.1; Est GFR (Non-African American) 84.6; Potassium 3.9 mmol/L (3.5-5.1)
[2019-02-10] MEDS ORDERED: LEVOTHYROXINE SODIUM 112 MCG TABLET PO SCH (06:30)
[2019-02-10] MEDS ORDERED: FERROUS GLUCONATE 324 MG TAB PO SCH ×2 (08:00)
--- NOTE | 2019-02-10 08:04 | Progress Note ---
DATE: 02/10/2019 SUBJECTIVE: A 68-year-old white female postop day 1 from ORIF of left humeral diaphyseal fracture. She is doing okay. Pain is much improved today. No new complaints. OBJECTIVE: VITAL SIGNS: Temperature 37.1. Vital signs stable. PHYSICAL EXAMINATION: Physical examination of the left arm reveals the dressing to be clean, dry and intact. No significant drainage. She is having difficulty wiggling any way of her fingers. She can slightly flex her fingers. Cannot really extend. She does have brisk refill with good distal pulse. Examination of the right knee reveals just a slight bit of residual serous drainage. She is neurologically intact. LABORATORY DATA: Hemoglobin 8.4. Hematocrit is 24.8. Electrolytes are stable. ASSESSMENT: A 68-year-old white female postoperative day 1 from open reduction and internal fixation of left humeral fracture with radial nerve palsy. She is doing much better from a pain standpoint, but she does have a radial nerve palsy. Right knee wound is stable and seems to be improving. PLAN: We are going to mobilize her this morning. We will get her in a cock-up wrist splint for her left arm. I am going to cancel the wound care nurse consult for possible Prevena as she has minimal drainage. We will continue antibiotics for now. If she is doing okay, we will try and get her home this afternoon. Continue iron supplementation. DORENE
--- NOTE | 2019-02-10 08:24 | Anesthesiology Progress Note ---
Date of Service February 10, 2019 Anesthesia Post Procedure Vital Signs Vital Signs: Temp Pulse Pulse Resp BP Pulse Ox 02/10/19 07:03 37.1 C 95 H 18 96/66 L 96 02/10/19 03:20 36.7 C 90 17 92/59 L 95 02/09/19 22:47 36.3 C L 81 17 96/60 L 98 02/09/19 21:51 36.4 C L 80 17 120/87 98 02/09/19 20:53 36.6 C 77 16 122/81 100 02/09/19 20:25 36.5 C 71 16 126/82 100 02/09/19 19:25 36.2 C L 72 13 129/80 98 02/09/19 19:15 70 12 138/75 98 02/09/19 19:05 70 12 131/79 100 02/09/19 18:55 81 12 120/85 100 02/09/19 18:45 85 12 130/81 100 02/09/19 18:35 80 12 141/85 H 100 02/09/19 18:25 85 12 119/69 100 02/09/19 18:19 36.2 C L 90 19 130/88 100 02/09/19 11:20 36.8 C 77 20 114/73 99 Pain Intensity Left Shoulder: Pain Intensity: 8 Notes Mental Status: alert / awake / arousable and participated in evaluation Patient Amnestic to Procedure: Yes Nausea / Vomiting: adequately controlled Pain: adequately controlled Airway Patency, RR, SpO2: stable & adequate BP & HR: stable & adequate Hydration State: stable & adequate Anesthetic Complications: Pt Satisfied with anesthetic care
[2019-02-10] MEDS: TAPENTADOL HCL ER 50 MG TABCR PO SCH (08:25)
[2019-02-10] MEDS: DOCUSATE SODIUM 100 MG CAP PO SCH (08:26)
[2019-02-10] MEDS: ASPIRIN 81 MG ECTAB PO SCH (08:26)
[2019-02-10] MEDS: INSULIN ASPART 100 UNITS/ML 3 ML PEN SC SCH (08:30)
[2019-02-10] MEDS ORDERED: dilTIAZem HCL 240 MG CAPCR PO SCH (09:00)
[2019-02-10] MEDS ORDERED: MULTIVITAMIN TAB PO SCH (09:00)
[2019-02-10] MEDS: OXYCODONE HCL IR 5 MG TAB (IMMEDIATE RELEASE) PO PRN (09:47)
[2019-02-10] MEDS ORDERED: OMEGA-3 (PURIFIED FISH OIL) 1 GM CAP PO SCH (11:30)
--- NOTE | 2019-02-10 12:08 | Pharmacy Report ---
Glycemic Control Consultation - Date of Service February 10, 2019 - Scope Scope: Glycemic Pharmacist consulted for glycemic control and to write orders per [facility] inpatient glycemic control protocol - Objective Weight: 127.006 kg Accuchecks BSG (last 24hrs): 02/09/19 02/09/19 02/10/19 18:24 20:57 05:14 Glucose 116 H POC Glucose 130 H 171 H 02/10/19 08:01 Glucose POC Glucose 136 H Laboratory Data (last 24hrs): 02/10/19 05:14 Potassium 3.9 Carbon Dioxide 22 Anion Gap 8.0 Creatinine 0.73 Est Cr Clr Drug Dosing 91.3 - Recent Pertinent Medications Outpatient Anti-diabetic Regimen: * Metformin 1000 mg po BID * Glyburide 5 mg po BID * A1c = 7.1 % on 11/15/18 The patient is currently receiving: * Basal insulin: None * Correctional Insulin: Novolog Correction per scale ACHS Goal Range: Low 110 mg/dL - High 140 mg/dL Correction Factor: 20 mg/dL/unit * Prandial insulin: Per carb ratio of 1 unit per 8 grams CHO consumed * Oral Agents: On hold Risk Factors for Insulin Resistance: * Steroids: none. Dexamethasone overridden from Omni in OR, but per RN, it was not given * Recent Surgery: POD 1 s/p ORIF L humerus fracture * Diet: T2DM - Assessment & Plan Assessment & Plan: ASSESSMENT: * 68 yo F with T2DM on two oral agents as an outpatient with HbA1c 2-3 months ago of 7.1% admitted with L humerus fracture and is s/p ORIF yesterday * Goal for all BSG's to be below 140-150 mg/dL in the immediate post-op period to promote wound healing and prevent infection * BSG's have all been less than 150 mg/dL, with the exception of HS last night where it was 171 mg/dL (this was prior to any insulin being administered) * AM fasting less than 140 mg/dL despite no basal insulin - OK to continue to hold basal insulin at this time * Novolog parameters currently weight-based estimate between mild and moderate stress. OK for now, but will need to be tightened if BSG's rise > 150 mg/dL PLAN FOR INPATIENT GLYCEMIC CONTROL: * Continue to hold outpatient oral diabetes medications * Basal insulin * None for now * Bolus insulin * NovoLog per scale ACHS or Q6hrs while NPO * Goal Range: Low 110 mg/dL - High 140 mg/dL * Correction Factor: 20 mg/dL/unit * Nutritional / Prandial insulin per carb ratio of 1 unit per 8 grams CHO consumed * Please note that the plan above was derived based on current level of insulin resistance and hospital stress. These recommendations are appropriate for inpatient admission only. Plan of care upon discharge will need to be reassessed to avoid potential outpatient hypo/hyperglycemia. Thank you.
--- NOTE | 2019-02-16 08:55 | Discharge Summary ---
ADMITTING PHYSICIAN AND SURGEON: Dr. Adrián Gar. ADMITTING DIAGNOSIS: Left displaced distal humerus fracture. PROCEDURE PERFORMED: Open reduction internal fixation of the left distal humerus fracture. SECONDARY DIAGNOSES: Hypertension, diabetes, hypothyroidism, morbid obesity, back pain, spinal arthritis, recent total knee replacement. CONSULTS: None obtained. HISTORY AND PHYSICAL EXAMINATION: Well documented in the patient's chart. HOSPITAL COURSE: The patient was admitted on 02/09/2019, underwent open reduction internal fixation of her humerus fractures, tolerated the procedure well. There were no complications. She was transferred to the PACU postoperatively and later to the orthopedic floor for further care. She was given Ancef for antibiotic prophylaxis. She did have a radial nerve palsy postoperatively and was given a wrist brace for that. She had minimal drainage from her recent total knee replacement and initially the wound care consult was placed for a Prevena VAC placement, but was discontinued. Her hemoglobin, hematocrit and vital signs were monitored during her hospital stay and remained stable. She did not require any blood transfusions. There were no complications. By postoperative day 1, she was tolerating a diabetic diet. Pain was controlled with oral pain medicine. She was participating in physical therapy. Postop day 1, she was discharged home, set up with home health services. She was given printed discharge instructions including specific instructions, no lifting with her left arm and she may use this for normal daily tasks that are non-lifting. She can weightbear as tolerated on her lower extremity, leave her dressing in place on her arm unless it gets soiled or wet and call the office for further instructions. Continue her home medications, continue physical therapy. Follow up approximately 2 weeks postoperatively or sooner if there are any problems or concerns.
== END 2019-02-10 12:27 | disposition home health service (06) | DRG 493 ==
LOC: ASU 10:02 → 3E 18:24

== ENCOUNTER 2020-10-02 08:18 | Observation (INO) ==
--- NOTE | 2020-09-13 16:22 | PAT Medication Instructions ---
Medication Instructions Date of Service September 13, 2020 Home Medications Medication Instructions Recorded levothyroxine 112 mcg tablet 112 mcg PO QAM #90 tab 10/25/19 nystatin 100,000 unit/gram topical 1 appln TOP UD PRN #60 gm 10/25/19 powder spironolactone 25 mg tablet 25 mg PO BID #180 tab 10/25/19 diltiazem HCl 240 mg 240 mg PO QAM #90 cap 11/29/19 capsule,extended release 24 hr metformin 500 mg tablet,extended 1,000 mg PO BID #360 tab 11/29/19 release 24 hr blood sugar diagnostic #100 ea 11/30/19 blood-glucose meter #1 ea 12/06/19 losartan 100 mg tablet 100 mg PO HS #90 tab 12/15/19 glyburide 5 mg tablet 10 mg PO BID #360 tab 02/15/20 hydrochlorothiazide 25 mg tablet 25 mg PO QAM #90 tab 02/15/20 hydroxyzine HCl 10 mg tablet 10 mg PO ONCE PRN #90 tab 08/31/20 lancets 33 gauge #100 ea 08/31/20 [place]-3 1 cap PO QAM Zyrtec 10 mg PO UD PRN acetaminophen 500 mg capsule 1,000 mg PO UD PRN Juice Plus 2 tab PO BID cyanocobalamin (vitamin B-12) [Vitamin B-12] 100 mcg PO QAM levothyroxine 112 mcg tablet 112 mcg PO QAM nystatin 100,000 unit/gram topical powder 1 appln TOP UD PRN spironolactone 25 mg tablet 25 mg PO BID diltiazem HCl 240 mg capsule,extended release 24 hr 240 mg PO QAM metformin 500 mg tablet,extended release 24 hr 1,000 mg PO BID losartan 100 mg tablet 100 mg PO HS glyburide 5 mg tablet 10 mg PO BID hydrochlorothiazide 25 mg tablet 25 mg PO QAM hydroxyzine HCl 10 mg tablet 10 mg PO ONCE PRN diclofenac sodium 4 gm TOP QID PRN STOP taking 2 weeks before surgery (or as soon as possible if surgery is within 2 weeks) [place]-3 1 cap PO QAM Juice Plus 2 tab PO BID STOP taking 24 hours before surgery nystatin 100,000 unit/gram topical powder 1 appln TOP UD PRN diclofenac sodium 4 gm TOP QID PRN DO NOT take the morning of surgery Zyrtec 10 mg PO UD PRN (if needed) cyanocobalamin (vitamin B-12) [Vitamin B-12] 100 mcg PO QAM spironolactone 25 mg tablet 25 mg PO BID metformin 500 mg tablet,extended release 24 hr 1,000 mg PO BID glyburide 5 mg tablet 10 mg PO BID hydrochlorothiazide 25 mg tablet 25 mg PO QAM hydroxyzine HCl 10 mg tablet 10 mg PO ONCE PRN Take morning of surgery With a small sip of water, OTHERWISE NOTHING TO EAT OR DRINK AFTER MIDNIGHT: acetaminophen 500 mg capsule 1,000 mg PO UD PRN (okay to take up to 4 hours prior to surgery if needed) levothyroxine 112 mcg tablet 112 mcg PO QAM diltiazem HCl 240 mg capsule,extended release 24 hr 240 mg PO QAM Take evening before surgery Zyrtec 10 mg PO UD PRN (if needed) acetaminophen 500 mg capsule 1,000 mg PO UD PRN (if needed) spironolactone 25 mg tablet 25 mg PO BID metformin 500 mg tablet,extended release 24 hr 1,000 mg PO BID losartan 100 mg tablet 100 mg PO HS glyburide 5 mg tablet 10 mg PO BID hydroxyzine HCl 10 mg tablet 10 mg PO ONCE PRN (if needed) Other Notes If you have any questions please call us at [phone] or [phone] or [phone] or [phone]
--- NOTE | 2020-09-17 14:42 | Anesthesiology Consultation ---
Date of Service September 17, 2020 Assessment & Plan (1) Encounter for pre-operative examination: - Cardiac clearance: Patient with abnormal preop EKG and multiple risk factors (morbid obesity, diabetes, decreased functional status). Will arrange preop cardiology evaluation. Awaiting cardiac assessment. - COVID screening: Per assessment on 09/17: Travel screen negative, no known COVID-19 positive contacts or current COVID-19 related symptoms. Patient fully vaccinated. Surgeon arranging preop COVID testing. Awaiting results. - Check BSG AM DOS - Left humerus (02/09/19): Grade view 2, MAC#3, ETT 7 (DL x1, "small cut to upper lip with laryngoscope removal") at [facility] - Right TKA (01/14/19): SAB at L3-L4 (x1 attempt) + PNB at [facility] Chart Review Chart Review: Patient seen in Pre Admission Testing Teaching & Discussion Pre-Anesthesia Teaching/Discussion Notes: Instructed NPO after midnight before surgery,except medications with 15 cc of water. Medication instructions provided according to the PAT guidelines. History Surgery Operation Date: 10/02/20 10:40 Proposed Procedures p Left Total Knee Arthroplasty - Adrián Gar MD Height/Weight Height: 5 ft Weight: 127.006 kg (per verbal) Allergies Allergy/AdvReac Type Severity Reaction Status Date / Time No Known Drug Allergies Allergy Verified 08/30/20 13:21 Medications Home Medications Medication Instructions Recorded Confirmed Last Taken [place]-3 1 cap PO QAM 12/17/18 09/10/20 2 Days Ago ~02/07/19 Zyrtec 10 mg PO UD PRN 12/17/18 09/10/20 1 Week Ago ~02/02/19 acetaminophen 500 mg capsule 1,000 mg PO UD PRN cap 03/02/19 09/10/20 Unknown Juice Plus 2 tab PO BID 08/29/19 09/10/20 Unknown cyanocobalamin (vitamin B-12) 100 mcg PO QAM 08/29/19 09/10/20 Unknown [Vitamin B-12] levothyroxine 112 mcg tablet 112 mcg PO QAM #90 tab 10/25/19 09/10/20 Unknown nystatin 100,000 unit/gram topical 1 appln TOP UD PRN #60 gm 10/25/19 09/10/20 Unknown powder spironolactone 25 mg tablet 25 mg PO BID #180 tab 10/25/19 09/10/20 Unknown diltiazem HCl 240 mg 240 mg PO QAM #90 cap 11/29/19 09/10/20 Unknown capsule,extended release 24 hr metformin 500 mg tablet,extended 1,000 mg PO BID #360 tab 11/29/19 09/10/20 Unknown release 24 hr blood sugar diagnostic #100 ea 11/30/19 09/10/20 Unknown blood-glucose meter #1 ea 12/06/19 09/10/20 Unknown losartan 100 mg tablet 100 mg PO HS #90 tab 12/15/19 09/10/20 Unknown glyburide 5 mg tablet 10 mg PO BID #360 tab 02/15/20 09/10/20 Unknown hydrochlorothiazide 25 mg tablet 25 mg PO QAM #90 tab 02/15/20 09/10/20 Unknown hydroxyzine HCl 10 mg tablet 10 mg PO ONCE PRN #90 tab 08/31/20 09/10/20 Unknown lancets 33 gauge #100 ea 08/31/20 09/10/20 Unknown diclofenac sodium 4 gm TOP QID PRN 09/10/20 09/10/20 Unknown Past Medical History Medical History DM type 2 (diabetes mellitus, type 2) NIDDM HTN (hypertension) Hypothyroidism Left knee DJD Morbid obesity Osteoarthritis Exercise / Class Metabolic Activity IV < 2 Limit ADL/Bedbound (wheelchair (in setting of worsening knee pain/instability)- no chest pain/no sob with daily activities though activity l evel low) Past Family History Family History Father Family history of pancreatic cancer Aunt Family history of diabetes mellitus Other Family history of colon cancer in mother No family history of adverse response to anesthesia Past Surgical History Surgical History History of colonoscopy History of hernia repair as infant History of intestinal surgery 2/2 small intestine perforation History of lumbar surgery no hardware History of open reduction and internal fixation (ORIF) procedure Left humerus (02/09/19): Grade view 2, MAC#3, ETT 7 (DL x1, "small cut to upper lip with laryngoscope removal") at [facility] History of total knee arthroplasty Right TKA (01/14/19): SAB at L3-L4 (x1 attempt) + PNB at [facility] Past Anesthesia History No Hx of Anesthesia Complications and No Family Hx of Anesthesia Complications History of PONV No Hx of PONV and No Hx of Motion Sickness Social History Smoking Status: Never smoker Do You Dip or Chew Tobacco: No Hx Alcohol Use: Yes Alcohol type: other alcohol intake frequency: holidays/special occasions only Hx Substance Use: No substance use type: does not use Review of Systems Patient denies chest pain, shortness of breath, fever, chills, cough, wheezing, palpitations. Physical Exam Vital Signs VITALS BP 132/84 P 89 TEMP 97.9 SP02 97%RA RESP 16 PHYSICAL Mildly decreased cervical extension range of motion. Full TMJ range of motion. TMD 3.5 finger breaths Mallampati Score 3 Dentition: intact, + several crowns (sides) Lungs: clear throughout to auscultation Cardiac: regular rate and rhythm, no murmurs noted Spine: normal Carotid arteries: negative bruit Extremities: no edema Short neck Testing Laboratory Results 09/17/20 15:12 PT 10.2 Seconds (9.0-12.0) 09/17/20 15:12 INR 1.0 (0.9-1.1) 09/17/20 15:12 APTT 25.3 Seconds (21.0-31.0) 09/17/20 15:12 Blood Type A Positive 09/17/20 15:12 Antibody Screen NEGATIVE 09/17/20 15:12 08/28/20 SODIUM 136 POTASSIUM 4.5 CHLORIDE 107 CO2 20 BUN 32 CREATININE 1.26 GLUCOSE 154 HGBA1C 7.9% (EAG 180) TSH 3.650 (WNL) FREE T4 1.52 (WNL) Electrocardiogram Date: 09/17/20 SR with sinus arrhythmia with first degree AVB at 96bpm. Low voltage QRS. Septal infarct, age undetermined. No significant change compared to 12/23/18 per limnologist review. Chest X-Ray Date: 09/17/20 FINDINGS: Lung volumes are normal. Lungs are clear. There is no pneumothorax or pleural effusion. Mild cardiomegaly is unchanged. Mediastinal contours are normal. There is no evidence for pulmonary edema. IMPRESSION: No acute cardiopulmonary findings. Stable cardiomegaly. Stress Test Date: 02/07/15 Type: DSE Negative DSE/dobutamine stress ECG for myocardial ischemia at 87% MPHR. No ECG changes. No dobutamine induced chest pain. No significant valvular disease. Mild concentric LVH. Normal LV size and systolic function.
[2020-09-17 15:57] LABS: Basophils # (auto) 0.08 K/uL (0-0.2); Basophils % (auto) 0.8 %; Eosinophils # (auto) 0.62 K/uL (0-0.5); Eosinophils % (auto) 5.9 %; Hematocrit (blood only) 33.4 % (37-47); Hemoglobin 11.6 g/dL (12.0-16.0); Immature Granulocytes # (auto) 0.02 K/uL (0.00-0.02); Immature Granulocytes % (auto) 0.2 %; Lymphocytes # (auto) 2.41 K/uL (1.2-3.4); Lymphocytes % (auto) 22.8 %; Mean Corpuscular Hemoglobin 30.8 pg (25-34); Mean Corpuscular Hgb Conc 34.7 g/dL (32-36); Mean Corpuscular Volume 88.6 fL (80-100); Mean Platelet Volume 10.2 fL (7.4-10.4); Monocytes # (auto) 0.69 K/uL (0.11-0.59); Monocytes % (auto) 6.5 %; Neutrophils # (auto) 6.74 K/uL (1.4-6.5); Neutrophils % (auto) 63.8 %; Platelet Count 362 K/uL (130-400); RDW Coefficient of Variation 13.2 % (11.5-14.5); RDW Standard Deviation 42.4 fL (36.4-46.3); Red Blood Count 3.77 M/uL (4.2-5.4); White Blood Count 10.56 K/uL (4.8-10.8)
--- NOTE | 2020-09-17 16:00 | Electrocardiogram Report ---
Test Reason : Blood Pressure : / mmHG Vent. Rate : 096 BPM Atrial Rate : 096 BPM P-R Int : 210 ms QRS Dur : 080 ms QT Int : 338 ms P-R-T Axes : 058 039 043 degrees QTc Int : 427 ms Sinus rhythm with sinus arrhythmia with 1st degree A-V block Low voltage QRS Septal infarct , age undetermined Abnormal ECG When compared with ECG of 23-DEC-2018 13:02, No significant change was found Confirmed by Yousuf Carson ([id number]) on 09/17/2020 4:00:05 PM Referred By: Adrián Gar Confirmed By:Yousuf Carson
[2020-09-17 16:07] LABS: Partial Thromboplastin Time 25.3 Seconds (21.0-31.0); Prothrombin Time 10.2 Seconds (9.0-12.0)
--- NOTE | 2020-09-17 16:28 | XRay Report ---
XR chest Pre-admission PA/Lat CLINICAL HISTORY: Preoperative evaluation. COMPARISON STUDY: Chest radiograph January 16, 2019. FINDINGS: Lung volumes are normal. Lungs are clear. There is no pneumothorax or pleural effusion. Mil d cardiomegaly is unchanged. Mediastinal contours are normal. There is no evidence for pulmonary melody a. IMPRESSION: 1. No acute cardiopulmonary findings. 2. Stable cardiomegaly. ACT 112: Negative or not required by law. Electronically signed by: Justino Arndt M.D. 09/17/2020 4:27 PM
[~2020-10-02 08:18] MED LIST changes: +BUPIVACAINE 0.5 % 5 MG/1 ML PF 10ML VIAL ONE; +BUPIVACAINE LIPOSOME/PF 266 MG, BUPIVACAINE/EPINEPHRINE 50 ML, SODIUM CHLORIDE 0.9% 30 ... INFIL SCH; -CEFAZOLIN 3000MG 72.5 ML IV SCH; +LR 500ML BOLUS, THEN 15ML/HR IV SCH; +ROPIVACAINE 0.5% 5 MG/ML 30 ML VIAL ONE; -SODIUM CHLORIDE 0.9% 1000ML IV SCH; +TRANEXAMIC ACID 1,000 MG **IV Intra-op IV SCH
--- NOTE | 2020-10-02 08:33 | History & Physical Bridge Note ---
Date of Service October 02, 2020 History & Physical Bridge Note I have examined the patient, reviewed the History & Physical and in the interval since the performance of the History & Physical I have noted the following changes of clinical significance: no changes noted
[2020-10-02] MEDS ORDERED: fentaNYL citrate 100 MCG/2 ML VIAL ONE (09:29)
[2020-10-02] MEDS ORDERED: MIDAZOLAM HCL 1 MG/ML 2ML VIAL ONE (09:29)
[2020-10-02] MEDS ORDERED: PROPOFOL IV EMULSION 10 MG/ML 20 ML VIAL IV ONE ×3 (09:32→12:37)
[2020-10-02] MEDS ORDERED: ePHEDrine sulfate 50 MG/ML AMP IV PRN (10:13)
[2020-10-02] MEDS ORDERED: ONDANSETRON INJ 2 MG/ML 2 ML VIAL IV PRN ×2 (10:13→14:17)
[2020-10-02] MEDS ORDERED: ATROPINE SULFATE 0.1 MG/ML 10ML SYR IV PRN (10:13)
[2020-10-02] MEDS ORDERED: HYDROmorphone INJ 1 MG/ML SYRINGE IV PRN (10:13)
[2020-10-02] MEDS ORDERED: SODIUM CHLORIDE 0.9% PF 50 ML VIAL ONE (10:45)
[2020-10-02] MEDS ORDERED: BUPIVACAINE LIPOSOME 1.3% 266 MG/20 ML VIAL ONE (10:45)
[2020-10-02] MEDS ORDERED: BACITRACIN INJ 50,000 UNIT VIAL ONE (10:45)
[2020-10-02] MEDS ORDERED: VANCOMYCIN HCL 1000MG/20ML VIAL ONE (10:46)
[2020-10-02] MEDS ORDERED: EPINEPHrine INJ 1 MG/ML AMP ONE (10:46)
[2020-10-02] MEDS ORDERED: BUPIVACAINE 0.25% 30 ML VIAL ONE (10:46)
[2020-10-02] MEDS: ceFAZolin 2000MG 2,000 MG/15 ML SYR IV SCH ×3 (11:04→18:09)
[2020-10-02] MEDS ORDERED: PHENYLEPHRINE 100MCG/ML 5ML SYR ONE (11:25)
[2020-10-02] MEDS ORDERED: ePHEDrine sulfate 50 MG/ML SYR ONE (11:25)
--- NOTE | 2020-10-02 13:40 | XRay Report ---
TWO VIEWS LEFT KNEE CLINICAL HISTORY: Postoperative examination. FINDINGS: AP and crosstable lateral portable views of the left knee are obtained. A left knee arthrop lasty with a long tibial stem is in near anatomic alignment. There has been undersurface remodeling o f the patella. No acute fracture is seen. There are expected postoperative changes around the knee in cluding skin clips, soft tissue edema, and subcutaneous gas. IMPRESSION: Expected postoperative changes status post left knee arthroplasty. No acute fracture is s een. ACT 112: Negative or not required by law. Electronically signed by: Trent Torres M.D. 10/02/2020 1:38 PM
--- NOTE | 2020-10-02 13:59 | Anesthesiology Progress Note ---
Date of Service October 02, 2020 Anesthesia Post Procedure Vital Signs Vital Signs: Temp Pulse Pulse Resp BP Pulse Ox 10/02/20 13:40 995 H 16 105/65 95 10/02/20 13:30 85 16 104/68 97 10/02/20 13:23 36.4 C L 80 16 102/64 97 10/02/20 09:12 36.7 C 103 H 20 115/77 97 Pain Intensity Left Knee: Pain Intensity: 6 Transfer of Care Handoff Completed per policy Notes Mental Status: alert / awake / arousable Patient Amnestic to Procedure: Yes Nausea / Vomiting: adequately controlled Pain: adequately controlled Airway Patency, RR, SpO2: stable & adequate BP & HR: stable & adequate Hydration State: stable & adequate Anesthetic Complications: no major complications apparent
[2020-10-02] MEDS ORDERED: GLUCOSE 10 TABS/TUBE PO PRN (14:17)
[2020-10-02] MEDS ORDERED: NYSTATIN POWDER 15GM BTL EXT PRN (14:17)
[2020-10-02] MEDS ORDERED: METOCLOPRAMIDE HCL INJ 5 MG/ML 2 ML VIAL IV PRN (14:17)
[2020-10-02] MEDS ORDERED: hydrOXYzine HCl 10 MG TAB PO PRN (14:17)
[2020-10-02] MEDS ORDERED: DEXTROSE 50% 50 ML SYRINGE IV PRN (14:17)
[2020-10-02] MEDS ORDERED: GLUCOSE 40% GEL 15 GM TUBE PO PRN (14:17)
[2020-10-02] MEDS ORDERED: ALUMINUM/MAGNESIUM SUSP 30 ML UDC PO PRN (14:17)
[2020-10-02] MEDS ORDERED: CARBOHYDRATES FOR HYPOGLYCEMIA PO PRN (14:17)
[2020-10-02] MEDS ORDERED: NALOXONE HCL 0.4 MG/1 ML VIAL/CARP IV PRN (14:17)
[2020-10-02] MEDS ORDERED: bisacodyL 10 MG SUPP PR PRN (14:17)
[2020-10-02] MEDS ORDERED: GLUCAGON FOR INJ 1 MG VIAL SQ PRN (14:17)
[2020-10-02] MEDS ORDERED: HYDROmorphone INJ 0.5 MG/0.5 ML SYR IV PRN (14:17)
[2020-10-02] MEDS ORDERED: MAGNESIUM HYDROXIDE SUSP 30 ML UDC PO PRN (14:17)
[2020-10-02] MEDS ORDERED: CETIRIZINE HCL 10 MG TABLET PO PRN (14:35)
[2020-10-02] MEDS ORDERED: PHARMACY GLYCEMIC MGMT CONSULT PRN (14:38)
--- NOTE | 2020-10-02 14:48 | Pharmacy Report ---
Pharmacy Glycemic Short Note 2 - Date of Service October 02, 2020 - Glycemic Short BSG Results (Last 24 hours): 10/02/20 10/02/20 08:50 13:27 POC Glucose 206 H 133 H OUTPATIENT ANTIDIABETIC REGIMEN: * Metformin XR 1000 mg PO BIDM * Glyburide 10 mg PO BID * HbA1c = 7.9% (08/28/20) ASSESSMENT: * 70 yo F admitted this afternoon s/p L TKA. Pharmacy has been consulted for assistance with inpatient glycemic management. * Admission BSG was significantly elevated at 206 mg/dL. No insulin was given perioperatively. * Postoperative BSG was 133 mg/dL. Patient did not receive any steroids perioperatively. She is ordered a T2DM diet. * For now, will utilize only bolus insulin with a goal to keep BSGs less than 150 mg/dL to prevent postoperative infection as well as wound healing. May need to tighten Novolog throughout this evening and if postprandial hyperglycemia is noted, will consider adding overnight accuchecks vs one time basal dose at bedtime. PLAN FOR INPATIENT GLYCEMIC CONTROL: * Hold outpatient oral diabetes medications * Oral agents are not recommended for inpatient use d/t drug interactions, changing PO intake, and difficulty titrating for acute hyper/hypoglycemia. ADA recommends re-initiating outpatient oral agents 1-2 days prior to discharge if/when appropriate if they were held on admission. * Basal insulin * None * Bolus insulin * NovoLog per scale ACHS or Q6hrs while NPO * Goal Range: Low 110 mg/dL - High 140 mg/dL * Correction Factor: 20 mg/dL/unit * Nutritional / Prandial insulin per carb ratio of 1 unit per 6 grams CHO consumed PLAN FOR DISCHARGE: * To be determined
[2020-10-02] MEDS: SODIUM CHLORIDE 0.9% 1000ML 1,000 ML IV SCH ×2 (15:02→22:39)
[2020-10-02] MEDS: KETOROLAC TROMETHAMINE 15 MG/ML VIAL IV SCH ×2 (15:33→20:07)
[2020-10-02] MEDS: ACETAMINOPHEN 500 MG TAB PO SCH ×2 (15:33→22:40)
[2020-10-02] MEDS: ASCORBIC ACID 500 MG TAB PO SCH (18:10)
[2020-10-02] MEDS: FERROUS GLUCONATE 324 MG TAB PO SCH (18:10)
[2020-10-02] MEDS: INSULIN ASPART 100 UNITS/ML 3 ML PEN SC SCH ×2 (18:13→21:25)
[2020-10-02] MEDS ORDERED: TRANEXAMIC ACID / 0.7% NACL 1,000 MG/100 ML BAG IV SCH (19:19)
[2020-10-02] MEDS: ASPIRIN 81 MG ECTAB PO SCH (19:59)
[2020-10-02] MEDS: SENNA 8.6 MG TAB PO SCH (19:59)
[2020-10-02] MEDS: DOCUSATE SODIUM 100 MG CAP PO SCH (19:59)
[2020-10-02] MEDS: LOSARTAN POTASSIUM 50 MG TAB PO SCH (20:00)
[2020-10-02] MEDS: SPIRONOLACTONE 25 MG TAB PO SCH (20:00)
--- NOTE | 2020-10-02 20:06 | Operative Report ---
Post Operative Report Pre & Post Diagnosis Operation Date: 10/02/20 10:40 Pre-Op Diagnosis: Left Knee Advanced Degenerative Joint Disease Post-Op Diagnosis: Left Knee Advanced Degenerative Joint Disease I identified the patient and participated in the time-out.: Yes Procedure Operation Date: 10/02/20 10:40 Actual Procedures p Left Total Knee Arthroplasty(Left) - Adrián Gar MD Surgeon Adrián Gar MD [place] [facility] IDRIS Pendleton Estimated Blood Loss 50 Findings Consistent with Post-Op Diagnosis Operative findings revealed advanced left knee tricompartment DJD. She had extensive grade 4 [id number] disease and erosions in all 3 compartments. Very distorted and inflamed bone. Osteophytes in all 3 compartments. Large knee joint effusion. Very large soft tissue envelope. Fluids 1300 cc. Specimens Left knee sent for pathology. Drains None. Anesthesia Type Spinal MAC Complications none Disposition Accompanied Patient To Recovery: No Disposition: Recovery Room Indications Patient is a 70-year-old female is morbidly obese has had a long history of bilateral knee pain discomfort. She been through extensive conservative treatment. Her knee pain has been debilitating for to the point where she is in a wheelchair most of the time. She can walk limited amounts. She had a right knee replaced a year and a half ago is done well from this but continue to be limited by left knee pain. X-rays show advanced left knee DJD. Due to her severe deformity and her large obesity stature we elect to place a stem and the tibia. She is indicated for total knee arthroplasty. Of note, she was scheduled for this previously but had to reschedule due to poor glucose control. She been working hard on getting this under better control and now presents for surgery. Description of Procedure Operative implants consisted of: 1. Biomet Vanguard size 62.5 left posterior stabilized femoral component. 2. Biomet Vanguard III 60 size 67 tibial tray with a 12 x 80mm extension with a 5 mm offset and a small cruciate wing. 3. 10 mm posterior stabilized polyethylene insert. 4. 28 x 8 all polypatella The patient was taken to the operating, identified, placed on the operating table supine position but all contact areas were properly padded. IV antibiotics tried by anesthesia team. Spinal anesthetic and been implemented holding area. Velazquez catheter was placed in sterile fashion. A left thigh turn was then placed. Left lower extremities and prepped and draped in usual sterile fashion. The left leg was elevated exsanguinated with use of an Esmarch and tourniquet placed at 350 mmHg. An anterior approach left knee was then performed through longitudinal incision. Sharp dissection got through subcutaneous tissue down the extensor mechanism. She had a very thick and large soft tissue envelope. A medial parapatellar arthrotomy incision was made. Some subperiosteal dissection was carried out medially. The fat pad was resected from beneath patella tendon. Lateral patellofemoral ligament was released. Patella was subluxated laterally and the knee was flexed. The osteophytes taken out distal femur P the ACL and PCL were then released from distal femur the tibia subluxated anteriorly. Was used to resect the tibial eminence. I then entered the tibial canal with the entry reamer and then reamed up to a size 12. The 12 reamer was left in place. The cutting guide was placed in the IM reamer and the proximal tibial cut was made remove about a millimeter bone from the most deficient aspect medial tibial plateau. Some osteophytes taken off medial and posteriorly. Of the tibia was then sized to a size 67. The tibia was then prepared for a 12 mm offset stem with a 5 mm offset and a small cruciate wing. The implant was assembled and placed. It fit nicely in the tibia. Attention drawn the femur. The distal femur examined the sharp drop with intramedullary canal was suction. A left 5 degree valgus cutting guide was placed. This femoral cutting block was pinned in place. Distal femoral cut was made to take an additional 3 mm of bone off distal femur. The femur was then sized to a size 62.5. The AP cutting block was pinned parallel to the epicondylar axis which was 5 degrees of ext ernal rotation. The anterior cut, anterior chamfer, posterior cut, posterior chamfer cut were made. The box cutting guide was placed in just slight lateral box cut was made. The knee was flexed with the remnants of the medial lateral menisci were excised. The osteophytes were taken off the posterior aspect the femur. A trial femoral component was placed. The tibial tray was already in position. The knee was trialed the 10 mm insert fit most appropriately. Attention drawn the patella. The patella was cleaned of all soft tissues. Patella thickness measured 21 mm in thickness was cut down to 13. Sized to a size 28 patella. The lug holes were drilled for the 28 patella. The lateral osteophyte is moved. Patella button was placed. Knee was taken through range of motion patella tracked nicely with no thumbs test. Attention drawn to place the permanent components. All trial components removed. A bone plug was placed in the distal femur limit blood loss put a double batch [place] G cement was mixed. A Biomet Vanguard size 62.5 left posterior stabilized femoral component, a size 67 tibial tray with a 12 x 80 mm extension with a 5 mm offset and a small cruciate wing was odette mayi along with a a 10 mm posterior stabilized polyethylene insert and a 28 x 8 all polypatella. The knee was brought out into full extension total cement hardened. Final cement check was then performed. Pericapsular tissues were injected with total 100 cc of combination of 20 cc of Exparel, 30 cc normal saline, 50 cc of quarter percent Marcaine with epinephrine. Patient did receive 1 g tranexamic acid. The tech was then let down for final turn time of 75 minutes. Hemostasis assured use electrocautery. Extensor mechanism closed with combination 1 PDS suture #1 Vicryl suture in [id number] fashion. Extensor Maxon checked found to be intact with subcutaneous tissue then closed with 2 Dexon suture in a buried interrupted fashion skin was closed skin chantale. Leg was then cleaned dried a sterile dressing both Xeroform, 4 fours, sterile cast padding, Gold bandage were applied. Patient then transferred to the recovery room in stable condition. Patient tolerated procedure well and there were no complications. Kirit Pendleton, my physician press operator assistant, was present for the entire procedure. His assistance was essential and required for appropriate patient positioning, prepping and draping, surgical exposure, performing the technical details of the operation, placement the implants, closure of the wound, and placement of the sterile bandage.. I attest to the content of the Intraoperative Record and any orders documented therein. Any exceptions are noted below.
[2020-10-02] MEDS ORDERED: [UNRECOGNIZED DRUG - OTHER] PO SCH (21:00)
[2020-10-02] MEDS ORDERED: glyBURIDE 5 MG TAB PO SCH (21:00)
[2020-10-02] MEDS: traMADol HCL 50 MG TABLET PO PRN (21:32)
[2020-10-03] MEDS: KETOROLAC TROMETHAMINE 15 MG/ML VIAL IV SCH ×4 (02:17→19:16)
[2020-10-03] MEDS: ceFAZolin 2000MG 2,000 MG/15 ML SYR IV SCH (02:18)
[2020-10-03] MEDS: SODIUM CHLORIDE 0.9% 1000ML 1,000 ML IV SCH (05:19)
[2020-10-03] MEDS: ACETAMINOPHEN 500 MG TAB PO SCH ×3 (06:11→21:18)
[2020-10-03] MEDS: LEVOTHYROXINE SODIUM 112 MCG TABLET PO SCH (06:11)
[2020-10-03] MEDS: ASPIRIN 81 MG ECTAB PO SCH ×2 (08:30→21:18)
[2020-10-03] MEDS: DOCUSATE SODIUM 100 MG CAP PO SCH ×2 (08:31→21:18)
[2020-10-03] MEDS: dilTIAZem HCL 240 MG CAPCR PO SCH (08:31)
[2020-10-03] MEDS: CYANOCOBALAMIN (VITAMIN B-12) 100 MCG TABLET PO SCH (08:31)
[2020-10-03] MEDS: ASCORBIC ACID 500 MG TAB PO SCH ×2 (08:32→17:52)
[2020-10-03] MEDS: FERROUS GLUCONATE 324 MG TAB PO SCH ×2 (08:32→17:52)
[2020-10-03] MEDS: MULTIVITAMIN TAB PO SCH (08:33)
[2020-10-03] MEDS: OMEGA-3 (PURIFIED FISH OIL) 1 GM CAP PO SCH (08:33)
[2020-10-03] MEDS: SPIRONOLACTONE 25 MG TAB PO SCH ×2 (08:33→21:17)
[2020-10-03] MEDS: hydroCHLOROthiazide 25 MG TAB PO SCH (08:34)
[2020-10-03 08:58] LABS: Hematocrit (blood only) 29.1 % (37-47); Hemoglobin 9.8 g/dL (12.0-16.0); Mean Corpuscular Hgb Conc 33.7 g/dL (32-36); Mean Platelet Volume 9.9 fL (7.4-10.4); Platelet Count 257 K/uL (130-400); RDW Coefficient of Variation 12.9 % (11.5-14.5); RDW Standard Deviation 41.6 fL (36.4-46.3); Red Blood Count 3.27 M/uL (4.2-5.4); White Blood Count 9.42 K/uL (4.8-10.8)
[2020-10-03] MEDS: INSULIN ASPART 100 UNITS/ML 3 ML PEN SC SCH ×4 (09:04→21:19)
[2020-10-03 09:28] LABS: BUN Creatinine Ratio 20.3 (10-20); Calcium 8.4 mg/dl (8.5-10.1); Creatinine Clr Calc Pharmacy 56.3 ml/min; Est GFR (African American) 55.8; Est GFR (Non-African American) 48.2
[2020-10-03] MEDS: traMADol HCL 50 MG TABLET PO PRN ×2 (11:21→18:21)
[2020-10-03] MEDS: SENNA 8.6 MG TAB PO SCH (21:17)
[2020-10-03] MEDS: LOSARTAN POTASSIUM 50 MG TAB PO SCH (21:17)
--- NOTE | 2020-10-03 21:31 | Progress Notes ---
DATE: 10/03/2020 SUBJECTIVE: A 70-year-old female postop day 1 from a left knee replacement. She is doing pretty well. Some pain, but controlled. Therapy has gone okay. She says she can do most things, just cannot pivot. No chest pain or shortness of breath. Not feeling dizzy or lightheaded. OBJECTIVE: VITAL SIGNS: Temperature 36.6. Vital signs are stable. GENERAL: Shows a pleasant, middle-aged female. She is sitting up at her bedside chair, looks pretty comfortable. LUNGS: Clear to auscultation. HEART: Has a regular rate and rhythm. ABDOMEN: Soft, nontender, nondistended. EXTREMITIES: Grossly neurovascularly intact except as follows: Examination of the left leg reveals the dressing to be clean, dry and intact. Leg is well aligned. Large soft tissue envelope. She can dorsiflex and plantarflex her foot appropriately. LABORATORY DATA: Hemoglobin 9.8. Hematocrit 29.1. Electrolytes are stable. ASSESSMENT: A 70-year-old morbidly obese female with multiple medical comorbidities, postoperative day 1 from a left knee replacement. She is doing reasonably well. Pain is controlled. Although does not do much walking preoperatively. PLAN: 1. DVT prophylaxis including thigh-high TEDs, SCDs, and aspirin twice a day. 2. PT/OT. Weight bear as tolerated. Left total knee protocol. 3. Pain control, doing well with current pain regimen. 4. Anemia. We will continue iron supplementation. She is asymptomatic. 5. Disposition: Plan to discharge to home with some home health once medically stable. She would like to stay until tomorrow, which is reasonable. She is adamantly denying going to a rehab. She does not feel like she is any worse off than what she was preoperatively.
[2020-10-04] MEDS: KETOROLAC TROMETHAMINE 15 MG/ML VIAL IV SCH ×2 (01:27→08:06)
[2020-10-04] MEDS: ACETAMINOPHEN 500 MG TAB PO SCH (05:37)
[2020-10-04] MEDS: LEVOTHYROXINE SODIUM 112 MCG TABLET PO SCH (05:37)
[2020-10-04] MEDS ORDERED: LANTUS PER UNIT CHARGE SQ ONE (07:15)
[2020-10-04] MEDS: INSULIN ASPART 100 UNITS/ML 3 ML PEN SC SCH ×2 (07:51→11:41)
[2020-10-04] MEDS: traMADol HCL 50 MG TABLET PO PRN (07:52)
[2020-10-04] MEDS: FERROUS GLUCONATE 324 MG TAB PO SCH (08:00)
[2020-10-04] MEDS: dilTIAZem HCL 240 MG CAPCR PO SCH (08:01)
[2020-10-04] MEDS: ASCORBIC ACID 500 MG TAB PO SCH (08:01)
[2020-10-04] MEDS: ASPIRIN 81 MG ECTAB PO SCH (08:01)
[2020-10-04] MEDS: DOCUSATE SODIUM 100 MG CAP PO SCH (08:02)
[2020-10-04] MEDS: CYANOCOBALAMIN (VITAMIN B-12) 100 MCG TABLET PO SCH (08:02)
[2020-10-04] MEDS: SPIRONOLACTONE 25 MG TAB PO SCH (08:02)
[2020-10-04] MEDS: MULTIVITAMIN TAB PO SCH (08:02)
[2020-10-04] MEDS: OMEGA-3 (PURIFIED FISH OIL) 1 GM CAP PO SCH (08:02)
[2020-10-04] MEDS: hydroCHLOROthiazide 25 MG TAB PO SCH (08:03)
--- NOTE | 2020-10-04 09:16 | Pharmacy Report ---
Pharmacy Glycemic Short Note 2 - Date of Service October 04, 2020 - Glycemic Short BSG Results (Last 24 hours): 10/03/20 10/03/20 10/03/20 08:38 12:01 17:03 Glucose 150 H POC Glucose 262 H 208 H 10/03/20 10/04/20 20:40 06:23 Glucose POC Glucose 215 H 156 H OUTPATIENT ANTIDIABETIC REGIMEN: * Metformin XR 1000 mg PO BIDM * Glyburide 10 mg PO BID * HbA1c = 7.9% (08/28/20) ASSESSMENT: 10/04 * AM fasting BSG yesterday wnl, but now slightly elevated today. Will add low- dose Lantus * Post-prandial BSG's yesterday all elevated despite post-prandial BSG being wnl the previous day with no additional stressors noted. Will tighten Novolog CF and CR 10/02 * 70 yo F admitted this afternoon s/p L TKA. Pharmacy has been consulted for assistance with inpatient glycemic management. * Admission BSG was significantly elevated at 206 mg/dL. No insulin was given perioperatively. * Postoperative BSG was 133 mg/dL. Patient did not receive any steroids perioperatively. She is ordered a T2DM diet. * For now, will utilize only bolus insulin with a goal to keep BSGs less than 150 mg/dL to prevent postoperative infection as well as wound healing. May need to tighten Novolog throughout this evening and if postprandial hyperglycemia is noted, will consider adding overnight accuchecks vs one time basal dose at bedtime. PLAN FOR INPATIENT GLYCEMIC CONTROL: * Hold outpatient oral diabetes medications * Oral agents are not recommended for inpatient use d/t drug interactions, changing PO intake, and difficulty titrating for acute hyper/hypoglycemia. ADA recommends re-initiating outpatient oral agents 1-2 days prior to discharge if/when appropriate if they were held on admission. * Basal insulin * Lantus 15 units SC x1. Additional 10 units tonight if BSG again >180 mg/dL * Bolus insulin * NovoLog per scale ACHS or Q6hrs while NPO * Goal Range: Low 110 mg/dL - High 140 mg/dL * Correction Factor: 15 mg/dL/unit * Nutritional / Prandial insulin per carb ratio of 1 unit per 5 grams CHO consumed PLAN FOR DISCHARGE: * To be determined
--- NOTE | 2020-10-04 14:57 | Progress Notes ---
DATE: 10/04/2020 SUBJECTIVE: A 70-year-old female postop day 2 from a left total knee arthroplasty. She is doing pretty well. Pain is controlled. Therapy went a little better today. No chest pain or shortness of breath. She is really adamant about going home. OBJECTIVE: VITAL SIGNS: Temperature 36.5. Vital signs stable. GENERAL: Shows a pleasant, middle-aged female. She was sitting up in bedside chair, looks reasonably comfortable. EXTREMITIES: Examination of the left leg reveals the incision to be clean, dry and intact. No significant drainage. No detectable swelling. Large soft tissue envelope. She can dorsiflex and plantarflex her foot appropriately. ASSESSMENT: A 70-year-old female postoperative day 2 from a left knee replacement, doing reasonably well. Pain is controlled. She is neurologically intact. PLAN: 1. DVT prophylaxis including thigh-high TEDs, SCDs, and aspirin twice a day. 2. PT/OT. Weight bear as tolerated. Left total knee protocol. 3. Pain control, doing okay with current pain regimen. 4. Disposition: She is adamant about going home. She is not interested in going to rehab even though it was suggested by the therapist. She is set up for home health and is used to limited mobility. We will discharge today with home health.
[2020-10-04] MEDS ORDERED: LANTUS PER UNIT CHARGE SQ SCH (21:00)
--- NOTE | 2020-10-09 06:43 | Discharge Summary ---
Date of Service October 09, 2020 Discharge Data Procedures Performed Operation Date: 10/02/20 10:40 Actual Procedures p Left Total Knee Arthroplasty(Left) - Adrián Gar MD Hospital Course (1) Status post total left knee replacement: This patient is a 70 year old female admitted on 10/02/20 and underwent total knee arthroplasty. She tolerated the procedure well and there were no complications. Transferred to the PACU post op and later to the orthopedic floor for further care. She was given ancef for antibiotic prophylaxis. She was also given MICHAEL stockings, SCDs, and aspirin for DVT prophylaxis. Hemoglobin, hematocrit, and vital signs were monitored during her hospital stay and remained stable. Did not require any blood transfusions. There were no complications du ring her hospital stay. By post op day #2 the patient was tolerating a diabetic diet, pain was reasonably controlled with oral pain medicine, and she was participating in physical therapy. On post op day #2 the patient was discharged home and set up with home health care. She was given printed discharge instructions including prescriptions for extra strength tylenol, aspirin, cefadroxil, iron supplement, and tramadol. Continue physical therapy, weight bearing as tolerated. Continue MICHAEL stockings. Follow up approximately 2 weeks post op or sooner if there are problems or concerns. Coding Level of Care Code None Diagnoses Status post total left knee replacement Z96.652
== END 2020-10-04 12:29 | disposition home health service (06) ==
LOC: 3E 08:18 → ASU 08:18